=== PATIENT | female | born 1980 | race Caucasian/White ===

== ENCOUNTER → 2019-03-19 13:57 | Outpatient (BNVA) | payer SELFPAY | PROVIDERS: Family Provider Nurse Practitioner; PCP Nurse Practitioner; Referring Provider Family Medicine; Visit Provider Internal Medicine Rheumatology | DX: M05.79 Rheumatoid arthritis with rheumatoid factor of multiple sites without organ or systems involvement (principal); Z79.899 Other long term (current) drug therapy | CPT/HCPCS: 99213; 99214 ==

== ENCOUNTER → 2019-04-13 11:09 | Outpatient (BNVA) | payer OTHER, SELFPAY | PROVIDERS: Family Provider Nurse Practitioner; PCP Nurse Practitioner; Visit Provider Nurse Practitioner | DX: F32.9 Major depressive disorder, single episode, unspecified (principal); F41.9 Anxiety disorder, unspecified; E66.9 Obesity, unspecified; R60.9 Edema, unspecified; M05.79 Rheumatoid arthritis with rheumatoid factor of multiple sites without organ or systems involvement; M05.70 Rheumatoid arthritis with rheumatoid factor of unspecified site without organ or systems involvement; M19.042 Primary osteoarthritis, left hand; M19.041 Primary osteoarthritis, right hand | CPT/HCPCS: 73130; 80053; 82607; 84443; 84460; 85025; 85651; 86140 ==

== ENCOUNTER → 2019-09-21 10:43 | Outpatient (BNVA) | payer SELFPAY | PROVIDERS: Family Provider Nurse Practitioner; PCP Nurse Practitioner; Visit Provider Internal Medicine Rheumatology | DX: Z11.59 Encounter for screening for other viral diseases (principal); Z79.899 Other long term (current) drug therapy; M05.79 Rheumatoid arthritis with rheumatoid factor of multiple sites without organ or systems involvement; Z71.89 Other specified counseling; M06.30 Rheumatoid nodule, unspecified site | CPT/HCPCS: 36415; 80076; 82565; 85025; 99214 ==

== ENCOUNTER → 2019-12-21 10:10 | Outpatient (BNVA) | payer SELFPAY | PROVIDERS: Family Provider Nurse Practitioner; PCP Nurse Practitioner; Visit Provider Internal Medicine Rheumatology | DX: M05.79 Rheumatoid arthritis with rheumatoid factor of multiple sites without organ or systems involvement (principal); Z79.899 Other long term (current) drug therapy; M06.30 Rheumatoid nodule, unspecified site; F17.210 Nicotine dependence, cigarettes, uncomplicated | CPT/HCPCS: 99214 ==

== ENCOUNTER 2020-03-30 10:32 | Emergency (ER) | payer SELFPAY ==
[2020-03-30 10:51] VITALS: BP 170/86; PULSE 91; RESP 20; TEMP 36.6; O2SAT 98; BMI 47.0
--- NOTE | 2020-03-30 11:03 | XR_ITS ---
WS: [id number] Portable AP upright chest, 03/30/2020 Clinical Data: chest pain/palpitations Comparison: PA and lateral chest, 11/12/2018 Findings: No nodules, masses or effusions are seen. The heart is normal. The pulmonary vascularity is not increased. No pneumonia or pneumothorax is seen. Monitor leads are present on the chest wall. XR/XR chest 1V portable [id number] Impression: Negative chest.
--- NOTE | 2020-03-30 11:04 | ECG_ITS ---
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 Measurements Intervals [place] Rate: 76 P: 72 NV: 173 QRS: 85 QRSD: 94 T: 81 QT: 369 QTc: 416 Interpretive Statements SINUS RHYTHM Compared to ECG 12/29/2015 22:36:17 No significant changes Electronically Signed On 03-30-2020 17:58:33 COMPOSER TEACHING ARTIST by Griffin Deleon M.D. [id number] f
--- NOTE | 2020-03-30 11:13 | ED_ITS ---
HPI - Chest Pain General: Chief Complaint: Chest Pain Stated Complaint: chest pains, heart palpitations, weakness Time Seen by Provider: 03/30/20 11:02 History of Present Illness: HPI narrative: The patient is a 39-year-old female with past medical history of rheumatoid arthritis who comes to the ER complaining of racing heart and palpitations. She sees Dr. Corona at [facility] rheumatology and she recently had her medication changed and started leflunomide 2 days ago. She began to develop nausea, palpitations, chest pain, racing heart and feeling weak. She has noticed her heart rate up to the 130s at home and this morning she had 2 or 3 hours on and off of racing heart. Several years ago she had an episode of A. fib with RVR related to a Depo shot. She is not currently having any racing of the heart or chest pain in the ED at this time. The symptoms were at home and they have resolved. Associated symptoms: Reports palpitations; Deny abdominal pain or dyspnea Review of Systems General: Reports: 10 or more systems reviewed and unremarkable except in HPI and below Const: Denies: fatigue Eyes: Denies: change in vision, blurry vision or eye redness ENMT: Denies: throat pain, swelling of lips/tongue, ear or mastoid pain or nasal congestion Card: Reports: chest pain and palpitations; Denies: irregular heart rhythm, edema, dyspnea on exertion or orthopnea Resp: Denies: dyspnea, productive cough or non-productive cough GI: Denies: abdominal pain, diarrhea or GI cramping : Denies: flank pain, difficulty voiding, urinary frequency or urinary urgency Musc: Denies: neck pain, back pain, extremity pain, joint pain, joint redness, limited range of motion or muscle weakness Skin/Breast: Denies: rash, pruritus, erythema, skin pain or skin tenderness Neuro: Denies: headache(s), numbness in extremities, weakness in extremities, sensory changes, difficulty walking, dizziness, confusion or Slurred speech present Psych: Denies: anxiety or depression Endo: Denies: polyuria All/Imm: Denies: urticaria, throat swelling or tongue swelling PFS ED PFSH: Medical History (Updated 03/30/20 @ 15:35 by Darian Conklin MD) Anxiety and depression Edema High risk medication use Immunization counseling Obesity Rheumatoid nodule, unspecified site Surgical History H/O: Family History Father Diabetes Hypertension Mother Hypertension Rheumatoid arthritis Other Heart disease Hypercholesteremia Liver disease Migraine Denies family history of Stroke Social History Smoking and tobacco status: current every day smoker cigarettes Packs smoked per day: 1 Alcohol intake: never Desire information about alcohol rehabilitation?: No Counseling given: No Desire information about substance/drug rehabilitation?: No Counseling given: No Adopted: No Caregiver/support person: No Lives independently: Yes Household members: none Marital status: Single Number of children: 3 service: No Current occupational status: employed Current occupation: [employer] [facility] Pets and animals: Yes Pets & animals: cat(s) and dog(s) History of recent travel: No Current gender identity: Female Female Reproductive History: Date of last menstrual period: 03/30/20 Physical Exam Const: COMMON NORMALS: no acute distress, average body habitus, patient oriented x3, no limitations, healthy appearing, alert and well nourished GENERAL APPEARANCE: cooperative, comfortable, well kempt and well developed ORIENTATION/CONSCIOUSNESS: Yes awake, Yes oriented to person, Yes oriented to place and Yes oriented to time HENMT: COMMON NORMALS: normocephalic, external ears normal and Normal external nose present HEAD & SCALP: normal to inspection and normocephalic NOSE: Normal external nose present EXTERNAL EAR: Yes external ears normal MOUTH: Normal oral and palatal mucosa present THROAT: posterior oropharynx normal Eye: COMMON NORMALS: Equal, round and reactive pupils present and EOMs intact bilaterally GENERAL EYE: appearance normal, both eyes and all related structures PUPIL: Yes Equal, round and reactive pupils present Neck/C-Spine: COMMON NORMALS: full ROM, no lymphadenopathy, no meningeal signs and no JVD GENERAL: Yes normal visual inspection Lymph: LYMPHATIC: no lymphadenopathy noted Chest: COMMONS NORMALS: normal inspection of the chest and normal palpation of entire chest wall Resp: COMMON NORMALS: normal respiratory effort, No retractions, No use of accessory muscles, clear to auscultation bilaterally and percussion normal EFFORT & INSPECTION: Yes able to speak in complete sentences AUSCULTATION: clear to auscultation bilaterally PERCUSSION: percussion normal Cardio: COMMON NORMALS: no JVD, regular rate, regular rhythm, S1 normal heart sound present, S2 normal heart sound present and Peripheral pulses 2+ throughout RATE: regular rate RHYTHM: regular rhythm HEART SOUNDS: S1 normal heart sound present and S2 normal heart sound present PERIPHERAL PULSES: Peripheral pulses 2+ throughout GI: COMMON NORMALS: Normal to inspection, nondistended, normoactive bowel sounds present, Soft to palpation, non-tender and no masses INSPECTION: Yes normal to inspection PALPATION: Yes Soft to palpation : COMMON NORMALS: Yes no CVA tenderness BLADDER/KIDNEY EXAM: Yes no CVA tenderness Back/Pelvis: COMMON NORMALS: no CVA tenderness, thoracic and lumbar spine normal to inspection, no thoracic nor lumbar tenderness and thoraco-lumbar ROM normal Extremity: COMMON NORMALS: normal to inspection, full ROM, capillary refill normal, no joint enlargement and no pedal edema GENERAL: Yes normal exam except as noted Neuro: COMMON NORMALS: patient oriented x3, CN's II-XII intact bilaterally, moves all extremities, no focal motor deficits, no sensory deficits noted and gait normal SENSORIUM/ORIENTATION: Yes alert, Yes oriented to person, Yes oriented to place and Yes oriented to time MENINGEAL SIGNS: Yes no meningeal signs Psych: COMMON NORMALS: mental status grossly normal, Normal thought process present, cooperative, normal affect and speech normal APPEARANCE: Yes well kempt ATTITUDE: Yes calm SPEECH: Yes normal speech THOUGHT PROCESS: Normal thought process present Skin: COMMON NORMALS: no rashes or lesions noted GENERAL SKIN EXAM: no rashes or lesions noted Course Vital Signs: Vital signs: Vital Signs Temperature 97.9 F 03/30/20 10:51 Pulse Rate 89 03/30/20 14:00 Respiratory Rate 18 03/30/20 14:00 Blood Pressure 157/87 03/30/20 14:00 Pulse Oximetry 98 03/30/20 14:00 MDM - Chest Pain MDM Narrative: Medical decision making narrative: She has been here for 5 hours with a rate in the 80s. 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 She also felt chest pain and shortness of breath at that time. It is unclear the cause of this but possibly a side effect of her new medication. Recommended stopping it and returning to the ER with any return of palpitations, chest pain, shortness of breath or any other worsening symptoms. Her and her partner understand the plan and agree to follow-up with cardiology and return to the ER with those symptoms. Lab Data: Labs: Lab Results 03/30/20 03/30/20 03/30/20 Range/Units 11:15 11:15 11:15 WBC 9.0 (4.0-10.0) 10^3/ uL RBC 5.23 (4.1-5.3) 10^6/u L Hgb 14.7 (11.5-15.3) g/dL Hct 46.2 (37.0-47.0) % MCV 88.3 (81-99) fL MCH 28.1 (28.0-34.0) pg MCHC 31.8 (30.0-36.0) g/dL RDW 13.5 (12.1-15.1) % Plt Count 316 (130-400) 10^3/c mm MPV 10.2 (7.4-10.4) fL Neut % (Auto) 52.2 % Lymph % (Auto) 35.3 % Garden % (Auto) 8.9 % Eos % (Auto) 3.0 % Baso % (Auto) 0.4 % Neut # (Auto) 4.66 (1.8-7.7) 10^3/u L Lymph # (Auto) 3.2 (0.8-4.8) 10^3/u L Garden # (Auto) 0.8 (0.2-0.9) 10^3/u L Eos # (Auto) 0.3 (0.0-0.8) 10^3/u L Baso # (Auto) 0.0 (0.0-0.1) 10^3/u L Nucleated RBC % (a uto) 0 % Nucleated RBCs # 0.0 /100WBC D-Dimer 1.24 H (0-0.59) ug/mIFE U Sodium 137 (136-145) mmol/L Potassium 3.2 L (3.5-5.1) mmol/L Chloride 97 L (98-107) mmol/L Carbon Dioxide 31 H (22-29) mmol/L Anion Gap 12.2 (5-19) BUN 9 (6-20) mg/dL Creatinine 0.5 (0.5-0.9) mg/dL GFR Calculation 137.4 H (90-130) mL/min Glucose 95 (65-115) mg/dL Calculated Osmolal ity 282 L (285-295) mOsm/k g Calcium 9.3 (8.5-10.5) mg/dL Total Bilirubin 0.2 (0.15-1.2) mg/dL AST 12 (0-32) U/L ALT 18 (0-33) U/L Alkaline Phosphata se 131 H (35-105) IU/L Troponin T Baselin e (0-10) ng/L Troponin T 120 Min adina (0-10) ng/L Delta Troponin T (0-10) ABS# Total Protein 7.3 (6.6-8.7) g/dL Albumin 3.9 (3.5-5.2) g/dL Globulin 3.4 (1.3-4.6) g/dL HCG, Qual (Negative) Urine Color (Yellow) Urine Appearance (CLEAR) Urine pH (5-7) Ur Specific Gravit y (1.005-1.030) Urine Protein (Negative) Urine Glucose (UA) (Normal) Urine Ketones (Negative) Urine Blood (Negative) Urine Nitrate (Negative) Urine Bilirubin (Negative) Urine Urobilinogen (Negative) mg/dL Ur Leukocyte Leda ase (Negative) Urine RBC (0-2) /hpf Urine WBC (0-5) /hpf Ur Squamous Epith Cells (0-5) /hpf Amorphous Sediment Urine Bacteria (NONE) /hpf 03/30/20 03/30/20 03/30/20 Range/Units 11:15 11:46 11:46 WBC (4.0-10.0) 10^3/ uL RBC (4.1-5.3) 10^6/u L Hgb (11.5-15.3) g/dL Hct (37.0-47.0) % MCV (81-99) fL MCH (28.0-34.0) pg MCHC (30.0-36.0) g/dL RDW (12.1-15.1) % Plt Count (130-400) 10^3/c mm MPV (7.4-10.4) fL Neut % (Auto) % Lymph % (Auto) % Garden % (Auto) % Eos % (Auto) % Baso % (Auto) % Neut # (Auto) (1.8-7.7) 10^3/u L Lymph # (Auto) (0.8-4.8) 10^3/u L Garden # (Auto) (0.2-0.9) 10^3/u L Eos # (Auto) (0.0-0.8) 10^3/u L Baso # (Auto) (0.0-0.1) 10^3/u L Nucleated RBC % (a uto) % Nucleated RBCs # /100WBC D-Dimer (0-0.59) ug/mIFE U Sodium (136-145) mmol/L Potassium (3.5-5.1) mmol/L Chloride (98-107) mmol/L Carbon Dioxide (22-29) mmol/L Anion Gap (5-19) BUN (6-20) mg/dL Creatinine (0.5-0.9) mg/dL GFR Calculation (90-130) mL/min Glucose (65-115) mg/dL Calculated Osmolal ity (285-295) mOsm/k g Calcium (8.5-10.5) mg/dL Total Bilirubin (0.15-1.2) mg/dL AST (0-32) U/L ALT (0-33) U/L Alkaline Phosphata se (35-105) IU/L Troponin T Baselin e 6 (0-10) ng/L Troponin T 120 Min adina (0-10) ng/L Delta Troponin T (0-10) ABS# Total Protein (6.6-8.7) g/dL Albumin (3.5-5.2) g/dL Globulin (1.3-4.6) g/dL HCG, Qual Negative (Negative) Urine Color Yellow (Yellow) Urine Appearance Clear (CLEAR) Urine pH 6.5 (5-7) Ur Specific Gravit y 1.010 (1.005-1.030) Urine Protein Neg (Negative) Urine Glucose (UA) Norm (Normal) Urine Ketones Negative (Negative) Urine Blood 3+ H (Negative) Urine Nitrate Negative (Negative) Urine Bilirubin Neg (Negative) Urine Urobilinogen Norm (Negative) mg/dL Ur Leukocyte Leda ase Negative (Negative) Urine RBC 0-4 H (0-2) /hpf Urine WBC 0-4 H (0-5) /hpf Ur Squamous Epith Cells 5-10 H (0-5) /hpf Amorphous Sediment Not Reportable Urine Bacteria 1+ H (NONE) /hpf 03/30/20 Range/Units 13:20 WBC (4.0-10.0) 10^3/ uL RBC (4.1-5.3) 10^6/u L Hgb (11.5-15.3) g/dL Hct (37.0-47.0) % MCV (81-99) fL MCH (28.0-34.0) pg MCHC (30.0-36.0) g/dL RDW (12.1-15.1) % Plt Count (130-400) 10^3/c mm MPV (7.4-10.4) fL Neut % (Auto) % Lymph % (Auto) % Garden % (Auto) % Eos % (Auto) % Baso % (Auto) % Neut # (Auto) (1.8-7.7) 10^3/u L Lymph # (Auto) (0.8-4.8) 10^3/u L Garden # (Auto) (0.2-0.9) 10^3/u L Eos # (Auto) (0.0-0.8) 10^3/u L Baso # (Auto) (0.0-0.1) 10^3/u L Nucleated RBC % (a uto) % Nucleated RBCs # /100WBC D-Dimer (0-0.59) ug/mIFE U Sodium (136-145) mmol/L Potassium (3.5-5.1) mmol/L Chloride (98-107) mmol/L Carbon Dioxide (22-29) mmol/L Anion Gap (5-19) BUN (6-20) mg/dL Creatinine (0.5-0.9) mg/dL GFR Calculation (90-130) mL/min Glucose (65-115) mg/dL Calculated Osmolal ity (285-295) mOsm/k g Calcium (8.5-10.5) mg/dL Total Bilirubin (0.15-1.2) mg/dL AST (0-32) U/L ALT (0-33) U/L Alkaline Phosphata se (35-105) IU/L Troponin T Baselin e (0-10) ng/L Troponin T 120 Min adina 6.00 (0-10) ng/L Delta Troponin T 0 (0-10) ABS# Total Protein (6.6-8.7) g/dL Albumin (3.5-5.2) g/dL Globulin (1.3-4.6) g/dL HCG, Qual (Negative) Urine Color (Yellow) Urine Appearance (CLEAR) Urine pH (5-7) Ur Specific Gravit y (1.005-1.030) Urine Protein (Negative) Urine Glucose (UA) (Normal) Urine Ketones (Negative) Urine Blood (Negative) Urine Nitrate (Negative) Urine Bilirubin (Negative) Urine Urobilinogen (Negative) mg/dL Ur Leukocyte Leda ase (Negative) Urine RBC (0-2) /hpf Urine WBC (0-5) /hpf Ur Squamous Epith Cells (0-5) /hpf Amorphous Sediment Urine Bacteria (NONE) /hpf Discharge Plan Discharge Patient Disposition: Home Clinical Impression: Heart palpitations Condition: Stable Prescriptions: No Action furosemide [Lasix] 20 mg tablet 10 mg PO QAM PRN (Reason: weight gain) Qty: 90 RF: 0 potassium chloride 10 mEq capsule, extended release 10 meq PO DAILY PRN (Reason: with Lasix) Qty: 90 RF: 0 prednisone 10 mg tablet See Rx Instructions PO .COMPLEX PRN (Reason: joint pain) Qty: 30 RF: 1 Tylenol 8 Hour 650 mg Tablet Extended Release 1,300 mg PO DAILY@0500 RF: 0 Enbrel Mini 50 mg/mL (1 mL) cartridge 50 mg SUBCUT Q7D RF: 0 Discharge Orders: Discharge ED (Routine); Ordered 03/30/20 Ordered By: Darian Conklin Referrals: Michael Leger, PEDIATRIC ONCOLOGY NURSE-C [Primary Care Provider] - Discharge Diet: Advance as tolerated Discharge Activity: Resume usual activity Patient Instructions: Heart Palpitations Activity Restrictions/Additional Instructions: You have had palpitations likely a side effect from your medication. 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 Return to the ER with worsening symptoms. I have also placed a case management referral to get you into a digital account manager to discuss this further catheter and get an echocardiogram. Coding Level of Care Code ED Curriculum Specialist for Chg Fwd Exam Comprehensive
[2020-03-30 11:22] LABS: Basophils % 0.4 %; Eosinophils # 0.3 10^3/uL (0.0-0.8); Hematocrit 46.2 % (37.0-47.0); Hemoglobin 14.7 g/dL (11.5-15.3); Lymphocytes # 3.2 10^3/uL (0.8-4.8); Lymphocytes % 35.3 %; Mean Corpuscular HGB Conc 31.8 g/dL (30.0-36.0); Mean Corpuscular Hemoglobin 28.1 pg (28.0-34.0); Mean Corpuscular Volume 88.3 fL (81-99); Mean Platelet Volume 10.2 fL (7.4-10.4); Monocytes # 0.8 10^3/uL (0.2-0.9); Monocytes % 8.9 %; Neutrophils # 4.66 10^3/uL (1.8-7.7); Neutrophils % 52.2 %; Nucleated Red Blood Cells % 0 %; Platelet Count 316 10^3/cmm (130-400); Red Blood Count 5.23 10^6/uL (4.1-5.3); Red Cell Distribution Width 13.5 % (12.1-15.1)
[2020-03-30 11:35] LABS: D Dimer 1.24 ug/mIFEU (0-0.59)
[2020-03-30 11:42] LABS: Alanine Aminotransferase 18 U/L (0-33); Albumin Level 3.9 g/dL (3.5-5.2); Alkaline Phosphatase 131 IU/L (35-105); Anion Gap 12.2 (5-19); Aspartate Amino Transferase 12 U/L (0-32); Blood Urea Nitrogen 9 mg/dL (6-20); Calcium 9.3 mg/dL (8.5-10.5); Carbon Dioxide 31 mmol/L (22-29); Chloride 97 mmol/L (98-107); Globulin 3.4 g/dL (1.3-4.6); Glomerular Filtration Rate 137.4 mL/min (90-130); Glucose 95 mg/dL (65-115); Osmolality Calculated 282 mOsm/kg (285-295); Potassium 3.2 mmol/L (3.5-5.1); Sodium 137 mmol/L (136-145); Total Bilirubin 0.2 mg/dL (0.15-1.2); Total Protein 7.3 g/dL (6.6-8.7); Troponin(5th) Baseline 6 ng/L (0-10)
[2020-03-30 11:53] LABS: HCG Qualitative Urine. Negative (Negative)
[2020-03-30] MEDS: sodium chloride 0.9% 1,000 ML 999 ML IV (11:55)
[2020-03-30 11:59] VITALS: BP 142/85; PULSE 87; RESP 18; O2SAT 96
[2020-03-30 12:42] LABS: Add Urine Microscopic? YES; Bilirubin Urine Neg (Negative); Blood Urine 3+ (Negative); Glucose Urine UA Norm (Normal); Ketones Urine Negative (Negative); Leukocyte Esterase Urine Negative (Negative); Nitrate Urine Negative (Negative); Protein Urine Neg (Negative); Urine Appearance Clear (CLEAR); Urine Color Yellow (Yellow); Urobilinogen Urine Norm (Negative); pH Urine 6.5 (5-7)
--- NOTE | 2020-03-30 12:44 | CT_ITS ---
WS: [id number] CT CHEST ANGIOGRAPHY WITH REFORMATS HISTORY: r/o PE TECHNIQUE: Contiguous axial images are obtained through the chest during arterial injection of intrav enous contrast. Images are reconstructed to evaluate the pulmonary arteries. MIP imaging also reviewe d. All CT scans at [facility] use at least one of these dose optimization techniques: aut omated exposure control; mA and/or kV adjustment per patient size (includes targeted exams where dose is matched to clinical indication); or iterative reconstruction. CONTRAST: Omnipaque 350; 95 mL IV. DLP: 1837.81 mGy.cm COMPARISON: None available. Very Limited opacification of the pulmonary arteries. This is predominantly due to timing of the bolu s injection and body habitus. Beyond the main pulmonary artery opacification is limited. Pulmonary em boli cannot be excluded on this exam. Pulmonary artery is normal size. There is no RIGHT heart strain . Normal thoracic aorta. The entire thorax is not included within the image due to body habitus. No m ediastinal or hilar adenopathy. There are very small, subcentimeter hilar lymph nodes. No pericardial or pleural effusion. Mild hepatic steatosis. No adrenal mass. T10 hemangioma. CT/CT angio chest PE protcl [id number] IMPRESSION: 1. No large central pulmonary embolism. Beyond the central pulmonary artery op acification is limited. This study is suboptimal due to body habitus predominan tly. 2. No pneumonia. 3. No significant adenopathy.
--- NOTE | 2020-03-30 13:04 | ECG_ITS ---
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 Measurements Intervals [place] Rate: 79 P: 66 CT: 174 QRS: 80 QRSD: 84 T: 76 QT: 383 QTc: 441 Interpretive Statements SINUS RHYTHM Compared to ECG 03/30/2020 11:08:15 No significant changes Electronically Signed On 03-30-2020 18:13:03 DOVETAIL MACHINE OPERATOR by Griffin Deleon M.D. [id number]
[2020-03-30 13:14] LABS: Add Urine Culture? No; Bacteria Urine 1+ /hpf; RBC Urine 0-4 /hpf (0-2); WBC Urine 0-4 /hpf (0-5)
[2020-03-30] MEDS: potassium chloride ER 20 mEq Tablet 40 MEQ PO (13:17)
--- NOTE | 2020-03-30 13:22 | PC.NURSE ---
EKG done at 1320 and shown to ER doctor
[2020-03-30 13:51] LABS: Troponin 5 2HR Delta 0 ABS# (0-10)
[2020-03-30] MEDS: iohexol 350 mg/mL 100 mL Btl IV ×2 (13:52→13:53)
[2020-03-30 14:00] VITALS: BP 157/87; PULSE 89; RESP 18; O2SAT 98
[2020-03-30 15:47] VITALS: BP 157/87; PULSE 89; RESP 18; O2SAT 98
--- NOTE | 2020-03-31 12:53 | DCPLANNER ---
Addendum entered by Rylee Boggs 03/31/20 13:13: it security manager called patient to give patient the appointment for heart care, called [phone], unable to speak with patient at this time, a voicemail was left for patient to return nurse case management phone call for appointment information. Original Note: it security manager had message to schedule a follow up appointment for patient with heart care and rheumatology. it security manager called heart care, spoke with Shama, gave clinic patients information. A follow up appointment was scheduled for Saturday,April 06, 2020 at 2:[address] Whatley. it security manager called the rheumatolgy clinic, gave clinic patients information. it security manager was told that patients information would be printed and reviewed. Clinic will call patient with appointment information.
--- NOTE | 2020-05-17 15:58 | DCPLANNER ---
Patient had a follow up appointment scheduled for 04.06.20 with heart care - appointment was cancelled.
== END 2020-03-30 15:48 | disposition home or self-care (01) ==
PROVIDERS: Emergency Provider Family Medicine; PCP Nurse Practitioner
DX: R00.2 Palpitations (principal); F17.210 Nicotine dependence, cigarettes, uncomplicated
CPT/HCPCS: 12345; 36415; 71045; 71275; 80053; 81001; 81025; 84484; 85025; 85378; 93005; 96360; 99283; 99284; J7030; Q9967

== ENCOUNTER → 2020-07-25 10:47 | Outpatient (BNVA) | payer SELFPAY | PROVIDERS: PCP Nurse Practitioner; Visit Provider Nurse Practitioner | DX: R60.0 Localized edema (principal); F41.9 Anxiety disorder, unspecified; F32.9 Major depressive disorder, single episode, unspecified; M05.79 Rheumatoid arthritis with rheumatoid factor of multiple sites without organ or systems involvement; Z79.899 Other long term (current) drug therapy | CPT/HCPCS: 80076; 82565; 85025; 86140 ==

== ENCOUNTER → 2020-08-17 14:09 | Outpatient (BNVA) | payer SELFPAY | PROVIDERS: PCP Nurse Practitioner; Visit Provider Internal Medicine Rheumatology | DX: M05.79 Rheumatoid arthritis with rheumatoid factor of multiple sites without organ or systems involvement (principal); M06.30 Rheumatoid nodule, unspecified site; Z79.899 Other long term (current) drug therapy; F41.9 Anxiety disorder, unspecified; F32.9 Major depressive disorder, single episode, unspecified; F17.210 Nicotine dependence, cigarettes, uncomplicated | CPT/HCPCS: 99214 ==

== ENCOUNTER → 2020-09-19 14:58 | Outpatient (BNVA) | payer SELFPAY | PROVIDERS: PCP Nurse Practitioner; Visit Provider Nurse Practitioner Family | DX: Z20.822 Contact with and (suspected) exposure to COVID-19 (principal) | CPT/HCPCS: 87635 ==

== ENCOUNTER 2020-11-12 15:19 | Emergency (ER) | payer BC, MEDICAID, SELFPAY ==
[2020-11-12 15:35] VITALS: BP 154/99; PULSE 91; RESP 16; TEMP 36.3; O2SAT 96; BMI 43.9
--- NOTE | 2020-11-12 15:49 | XRR_ITS ---
PROCEDURE INFORMATION: Exam: XR Chest Exam date and time: 11/12/2020 3:49 PM Age: 39 years old Clinical indication: Chest wall pain; Additional info: Chest pain and dyspnea TECHNIQUE: Imaging protocol: XR of the chest. Views: 1 view. COMPARISON: CR XR chest 1V portable [id number] 03/30/2020 11:11 AM FINDINGS: Lungs: Unremarkable. No consolidation. Pleural spaces: Unremarkable. No pleural effusion. No pneumothorax. Heart/Mediastinum: Unremarkable. No cardiomegaly. Bones/joints: Unremarkable. XR/XR chest 1V portable [id number] IMPRESSION: No acute findings.
--- NOTE | 2020-11-12 15:49 | ECG_ITS ---
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
--- NOTE | 2020-11-12 15:51 | W.ED.GENADLT ---
HPI - General Adult General: Chief complaint: Chest Pain Stated complaint: cp Time Seen by Provider: 11/12/20 15:41 History of Present Illness: HPI narrative: CC: Chest Pain HPI: This is a [39] yo patient hx of RA, obesity presenting to the ED complaining of acute sudden onset intermittent sharp chest pain, palpitations and dyspnea x 1 hrs 30 minutes. Pain is not tearing in nature and does not radiate to the back. Pain not associated with vomiting or PO intake. Denies any recent sympathomimetic drug use. Patient denies any cough. Denies palpitations, dysphagia, diaphoresis, radiation of pain to bilateral arms, jaw. Denies F/N/V/D. Patient denies any recent immobility, surgery, or prior PE. Patient denies any orthopnea. Of note, ptaient has lower extremity swelling L>R which has been chronically present. In early 2020, patient presented to a chest pain evaluation and had a negative CTA study for PE. Onset: 1 hrs and 30 minutes ago Duration: ongoing Location: hospital Severity: moderate Review of Systems Narrative: Constitutional: No fever, no chills. HEENT: No vision changes, no sore throat. CV: +chest pain, no palpitations. PULM: No cough, +dyspnea. GI: No abdominal pain, no N/V/D. : No dysuria, no frequency, no hematuria. MSKEL: No arthralgias, no edema. SKIN: No new rashes, no lesions. NEURO: No headache, no focal weakness. HEME: No easy bleeding or bruising. PSYCH: No change in mood or affect. [facility] ED PFSH: Medical History (Updated 11/12/20 @ 15:53 by Emmy Tapia MD) Anxiety and depression Edema High risk medication use Immunization counseling Obesity Rheumatoid nodule, unspecified site Surgical History H/O: Family History Father Diabetes Hypertension Mother Hypertension Rheumatoid arthritis Other Heart disease Hypercholesteremia Liver disease Migraine Denies family history of Stroke Social History Smoking and tobacco status: current every day smoker cigarettes Packs smoked per day: 1 Second hand smoke exposure: No Smoking risk assessment/counseling performed?: Yes Alcohol intake: never Desire information about alcohol rehabilitation?: No Counseling given: No Desire information about substance/drug rehabilitation?: No Counseling given: No Adopted: No Caregiver/support person: No Lives independently: Yes Household members: none Marital status: Single Number of children: 3 service: No Current occupational status: employed Current occupation: [employer] Pets and animals: Yes Pets & animals: cat(s) and dog(s) History of recent travel: No Current gender identity: Female Female Reproductive History: Spontaneous abortions: No Physical Exam Narrative: EXAM NARRATIVE: Head: Atraumatic, normocephalic Eyes: PERRL, EOMI, conjunctiva without injection ENT: Throat without erythema, lesions or exudate, MMM NECK: Supple, trachea midline, no JVD LUNGS: LCTA CV: RRR, S1,S2, no murmurs, rubs, gallops. 2+ peripheral pulses in UEs ABDOMEN: Soft, nontender, nondistended, BS x4, no rigidity, no guarding, no rebound EXTREMITY: Normal ROM, +2+ pitting edema b/l, +L > R lower extremity, no human sign SKIN: No rash or erythema NEURO: Awake and alert. No focal motor deficits. PSYCH: Normal mood and affect. Course Vital Signs: Vital signs: Vital Signs Temperature 97.3 F L 11/12/20 15:35 Pulse Rate 68 11/12/20 18:55 Respiratory Rate 18 11/12/20 18:55 Blood Pressure 148/72 11/12/20 18:55 Pulse Oximetry 98 11/12/20 18:55 MDM - General Adult MDM Narrative: Medical decision making narrative: [39]yo patient w/ hx of RA and obesity presenting to the ED with evaluation of new onset sharp chest pain lasting for 1 hr and 30 minutes/. HDS, pulse 2+ radially bilaterally, 2+ pittting edema L > R. AAOx3, neuro exam intact. Given History and Exam today, will workup for PE and ACS. No suspicion for Pneumothorax, Pneumonia, Tamponade, Aortic Dissection or other emergent problems as a cause for this presentation. Workup: ECG, CXR, CBC, BMP, Troponin Interventions: Tylenol offered but patient declined Findings: ECG: No overt evidence of STEMI, hyperacute T waves, localizable STD or T wave inversions. No evidence of Brugada?s sign, delta wave, epsilon wave, significantly prolonged QTc, or malignant arrhythmia. No Q waves. Other Labs unremarkable for emergent problems. CXR: Without PTX, PNA, or widened mediastinum Last Stress Test: never Last Heart Catheterization: never HEART Score: 2 (story - 1, risk factors of 1) Dimer elevated similar to prior presentation. Offered CTA evaluation for PE and patient agreed. [6:30pm] On reassessment, the patient is HDS, no complaints of persistent chest pain in the ED after evaluation. Troponin x 2 negative. ECG is non-ischemic. Workup today is unremarkable. Doubt ACS/PE or other emergent causes of chest pain. Patient declined pain medicine. CTA negative for any acute PE. Disposition: Discharge. Strict return precautions discussed with the patient with full understanding. Advised patient to follow up promptly with a primary care provider in 24-48 hrs if the patient has persistent symptoms. Given return instructions for any crushing/tearing chest pain, focal weakness, syncope or any new or concerning issues. I have given patient follow up with a market research interviewer should she need it. Lab Data: Labs: Lab Results 11/12/20 11/12/20 11/12/20 Range/Units 13:47 13:47 13:47 WBC 9.0 (4.0-10.0) 10^3/ uL RBC 4.84 (4.1-5.3) 10^6/u L Hgb 13.8 (11.5-15.3) g/dL Hct 43.3 (37.0-47.0) % MCV 89.5 (81-99) fl MCH 28.5 (28.0-34.0) pg MCHC 31.9 (30.0-36.0) g/dL RDW 14.7 (12.1-15.1) % Plt Count 277 (130-400) 10^3/c mm MPV 10.5 H (7.4-10.4) fL Neut % (Auto) 49.0 % Lymph % (Auto) 35.8 % [place] % (Auto) 9.3 % Eos % (Auto) 5.0 % Baso % (Auto) 0.7 % Neut # (Auto) 4.43 (1.8-7.7) 10^3/u L Lymph # (Auto) 3.2 (0.8-4.8) 10^3/u L [place] # (Auto) 0.8 (0.2-0.9) 10^3/u L Eos # (Auto) 0.5 (0.0-0.8) 10^3/u L Baso # (Auto) 0.1 (0.0-0.1) 10^3/u L Nucleated RBC % (a uto) 0 % Nucleated RBCs # 0.0 /100WBC D-Dimer 1.20 H (0-0.59) ug/mIFE U Sodium 140 (136-145) mmol/L Potassium 4.4 (3.5-5.1) mmol/L Chloride 108 H (98-107) mmol/L Carbon Dioxide 20 L (22-29) mmol/L Anion Gap 16.4 (5-19) BUN 10 (6-20) mg/dL Creatinine 0.5 (0.5-0.9) mg/dL GFR Calculation 137.4 H (90-130) mL/min Glucose 90 (65-115) mg/dL Calculated Osmolal ity 289 (285-295) mOsm/k g Calcium 8.5 (8.5-10.5) mg/dL Troponin T Baselin e (0-10) ng/L Troponin T [address] [facility] (0-10) ng/L Delta Troponin T (0-10) ABS# Ser , Fitz i-Qnt 0.50 mIU/mL 11/12/20 11/12/20 Range/Units 13:47 18:10 WBC (4.0-10.0) 10^3/ uL RBC (4.1-5.3) 10^6/u L Hgb (11.5-15.3) g/dL Hct (37.0-47.0) % MCV (81-99) fl MCH (28.0-34.0) pg MCHC (30.0-36.0) g/dL RDW (12.1-15.1) % Plt Count (130-400) 10^3/c mm MPV (7.4-10.4) fL Neut % (Auto) % Lymph % (Auto) % [place] % (Auto) % Eos % (Auto) % Baso % (Auto) % Neut # (Auto) (1.8-7.7) 10^3/u L Lymph # (Auto) (0.8-4.8) 10^3/u L [place] # (Auto) (0.2-0.9) 10^3/u L Eos # (Auto) (0.0-0.8) 10^3/u L Baso # (Auto) (0.0-0.1) 10^3/u L Nucleated RBC % (a uto) % Nucleated RBCs # /100WBC D-Dimer (0-0.59) ug/mIFE U Sodium (136-145) mmol/L Potassium (3.5-5.1) mmol/L Chloride (98-107) mmol/L Carbon Dioxide (22-29) mmol/L Anion Gap (5-19) BUN (6-20) mg/dL Creatinine (0.5-0.9) mg/dL GFR Calculation (90-130) mL/min Glucose (65-115) mg/dL Calculated Osmolal ity (285-295) mOsm/k g Calcium (8.5-10.5) mg/dL Troponin T Baselin e 6 (0-10) ng/L Troponin T [address] [facility] 6.00 (0-10) ng/L Delta Troponin T 0 (0-10) ABS# Ser , Fitz i-Qnt mIU/mL Imaging Data^: Other Imaging: Radiologist's impression: [address] [id number] ReportSigned Patient: Bella Owusu #: [id number]: 1980Acct#:[id number]/Sex: 39 / FADM Date: 11/12/20Loc: ERRoom/Bed:Attending Dr: Ordering Provider/Ordering MD: Emmy Tapia MD Date of Service: 11/12/20 Procedure(s): XR chest 1V portable [id number] Accession Number(s): [id number] Report Number: [id number] PROCEDURE INFORMATION: Exam: XR Chest Exam date and time: 11/12/2020 3:49 PM Age: 39 years old Clinical indication: Chest wall pain; Additional info: Chest pain and dyspnea TECHNIQUE: Imaging protocol: XR of the chest. Views: 1 view. COMPARISON: CR XR chest 1V portable [id number] 03/30/2020 11:11 AM FINDINGS: Lungs: Unremarkable. No consolidation. Pleural spaces: Unremarkable. No pleural effusion. No pneumothorax. Heart/Mediastinum: Unremarkable. No cardiomegaly. Bones/joints: Unremarkable. XR/XR chest 1V portable [id number] IMPRESSION: No acute findings. Dictated By:Pedro Krause DOSigned By:Pedro Krause DOSigned Date/Time:11/12/20 1700DD/ 1659 [facility] [place], [place] [address]KH Scan ReportSigned Patient: Bella Owusu #: [id number]: 1980Acct#:[id number]/Sex: 39 / FADM Date: 11/12/20Loc: ERRoom/Bed:Attending Dr: Ordering Provider/Ordering MD: Emmy Tapia MD Date of Service: 11/12/20 Procedure(s): CT angio chest PE protcl [id number] Accession Number(s): [id number] Report Number: [id number] PROCEDURE INFORMATION: Exam: CTA Chest With Contrast Exam date and time: 11/12/2020 4:57 PM Age: 39 years old Clinical indication: Other: Chest pain; Additional info: Rule out pe TECHNIQUE: Imaging protocol: Computed tomographic angiography of the chest with contrast. 3D rendering (Not supervised by radiologist): MIP and/or 3D reconstructed images were created by the technologist. Radiation optimization: All CT scans at this facility use at least one of these dose optimization techniques: automated exposure control; mA and/or kV adjustment per patient size (includes targeted exams where dose is matched to clinical indication); or iterative reconstruction. Contrast material: OMNI 350; Contrast volume: 74 ml; Contrast route: INTRAVENOUS (IV); COMPARISON: CT angio chest PE protcl [id number] 03/30/2020 1:33 PM RADIATION DOSE METRICS: Total DLP (mGy-cm): 595.55 FINDINGS: Pulmonary arteries: Normal. No pulmonary emboli. Aorta: Unremarkable. No aortic aneurysm. No aortic dissection. Lungs: Unremarkable. No consolidation. No masses. Pleural spaces: Unremarkable. No pneumothorax. No pleural effusion. Heart: Unremarkable. No cardiomegaly. No pericardial effusion. Lymph nodes: Unremarkable. No enlarged lymph nodes. Bones/joints: Well-demarcated probable large bone island/enostosis measuring 1.4 cm in the T10 vertebral body. No acute fracture. Soft tissues: Unremarkable. CT/CT angio chest PE protcl [id number] IMPRESSION: Negative for pulmonary embolism. No acute intrathoracic findings. Radiation Dose CTDIVOL = (mGy): DLP = 595.55 (mGy-cm) Dictated By:Pedro Krause DOSigned By:Pedro Krause DOSigned Date/Time:11/12/201824DD/ 24 Discharge Plan Discharge Patient Disposition: Home Clinical Impression: Chest pain, Dyspnea Condition: Stable Prescriptions: No Action Humira Pen 40 mg/0.8 mL pen injector kit 40 mg SUBCUT .Q7days Qty: 4 RF: 3 hydrochlorothiazide 25 mg tablet 25 mg PO QAM Qty: 30 RF: 2 venlafaxine [Effexor XR] 75 mg capsule,extended release 24hr 75 mg PO QAM Qty: 30 RF: 2 acetaminophen [Tylenol 8 Hour] 650 mg Tablet Extended Release 1,300 mg PO DAILY@0500 RF: 0 Topamax 25 mg tablet 25 mg PO DAILY RF: 0 Discharge Orders: Discharge ED (Routine); Ordered 11/12/20 Ordered By: Emmy Tapia Referrals: Michael Leger, SYSTEM SUPPORT ANALYST-C [Primary Care Provider] - Discharge Diet: Advance as tolerated Discharge Activity: Resume usual activity Patient Instructions: Chest Pain (ED) Activity Restrictions/Additional Instructions: Please come back to the emergency room if your chest pain worsens, have shortness of breath, or if you have any new or concerning complaints. Our case management coordinator will call you in the next few days to set you up an appointment with cardiology. Coding Level of Care Code ED Verse Writer for Nai Arceo
[2020-11-12 16:22] LABS: Basophils # 0.1 10^3/uL (0.0-0.1); Basophils % 0.7 %; Eosinophils # 0.5 10^3/uL (0.0-0.8); Hematocrit 43.3 % (37.0-47.0); Hemoglobin 13.8 g/dL (11.5-15.3); Lymphocytes # 3.2 10^3/uL (0.8-4.8); Lymphocytes % 35.8 %; Mean Corpuscular HGB Conc 31.9 g/dL (30.0-36.0); Mean Corpuscular Hemoglobin 28.5 pg (28.0-34.0); Mean Corpuscular Volume 89.5 fl (81-99); Mean Platelet Volume 10.5 fL (7.4-10.4); Monocytes # 0.8 10^3/uL (0.2-0.9); Monocytes % 9.3 %; Neutrophils # 4.43 10^3/uL (1.8-7.7); Nucleated Red Blood Cells % 0 %; Platelet Count 277 10^3/cmm (130-400); Red Blood Count 4.84 10^6/uL (4.1-5.3); Red Cell Distribution Width 14.7 % (12.1-15.1)
[2020-11-12 16:29] LABS: Troponin(5th) Baseline 6 ng/L (0-10)
--- NOTE | 2020-11-12 16:57 | CTR_ITS ---
PROCEDURE INFORMATION: Exam: CTA Chest With Contrast Exam date and time: 11/12/2020 4:57 PM Age: 39 years old Clinical indication: Other: Chest pain; Additional info: Rule out pe TECHNIQUE: Imaging protocol: Computed tomographic angiography of the chest with contrast. 3D rendering (Not supervised by radiologist): MIP and/or 3D reconstructed images were created by the technologist. Radiation optimization: All CT scans at this facility use at least one of these dose optimization techniques: automated exposure control; mA and/or kV adjustment per patient size (includes targeted exams where dose is matched to clinical indication); or iterative reconstruction. Contrast material: OMNI 350; Contrast volume: 74 ml; Contrast route: INTRAVENOUS (IV); COMPARISON: CT angio chest PE protcl [id number] 03/30/2020 1:33 PM RADIATION DOSE METRICS: Total DLP (mGy-cm): 595.55 FINDINGS: Pulmonary arteries: Normal. No pulmonary emboli. Aorta: Unremarkable. No aortic aneurysm. No aortic dissection. Lungs: Unremarkable. No consolidation. No masses. Pleural spaces: Unremarkable. No pneumothorax. No pleural effusion. Heart: Unremarkable. No cardiomegaly. No pericardial effusion. Lymph nodes: Unremarkable. No enlarged lymph nodes. Bones/joints: Well-demarcated probable large bone island/enostosis measuring 1.4 cm in the T10 vertebral body. No acute fracture. Soft tissues: Unremarkable. CT/CT angio chest PE protcl [id number] IMPRESSION: Negative for pulmonary embolism. No acute intrathoracic findings. Radiation Dose CTDIVOL = (mGy): DLP = 595.55 (mGy-cm)
[2020-11-12 17:01] VITALS: BP 142/74; PULSE 74; RESP 19; O2SAT 98
[2020-11-12] MEDS: iohexol 350 mg/mL 100 mL Btl IV (17:46)
--- NOTE | 2020-11-12 17:49 | ECG_ITS ---
[facility] Test Date: 2020-11-12 Pat Name: Bella Owusu Department: Room: Gender: Female Security Project Manager: : 1980 Requested By: Emmy Tapia Order Number: [id number] Reading MD: JEANNE DAVID Measurements Intervals [place] Rate: 75 P: 52 CO: 161 QRS: 61 QRSD: 90 T: 55 QT: 383 QTc: 429 Interpretive Statements SINUS RHYTHM LOW QRS VOLTAGE IN PRECORDIAL LEADS [QRS DEFLECTION < 1.0 mV IN CHEST LEADS] Compared to ECG 03/30/2020 13:19:33 Low QRS voltage now present Electronically Signed On 11-12-2020 20:17:12 CDT by JEANNE DAVID [id number]
[2020-11-12 18:01] VITALS: BP 148/72; PULSE 68; RESP 18; O2SAT 98
[2020-11-12 18:55] VITALS: BP 148/72; PULSE 68; RESP 18; O2SAT 98
[2020-11-12 19:14] LABS: Troponin 5 2HR Delta 0 ABS# (0-10)
[2020-11-12 20:01] LABS: Anion Gap 16.4 (5-19); Blood Urea Nitrogen 10 mg/dL (6-20); Calcium 8.5 mg/dL (8.5-10.5); Carbon Dioxide 20 mmol/L (22-29); Chloride 108 mmol/L (98-107); Glomerular Filtration Rate 137.4 mL/min (90-130); Glucose 90 mg/dL (65-115); Osmolality Calculated 289 mOsm/kg (285-295); Potassium 4.4 mmol/L (3.5-5.1); Sodium 140 mmol/L (136-145)
--- NOTE | 2020-11-16 14:44 | DCPLANNER ---
communications program manager had message to schedule a follow up appointment for patient with [facility]. communications program manager called [facility], spoke with Shama, gave clinic patients information. A follow up appointment was scheduled for Saturday, November 28, 2020 at 2:[address] Rosado. communications program manager called patient and gave patient the appointment information.
--- NOTE | 2020-12-01 09:28 | DCPLANNER ---
Patient had a follow up appointment scheduled for 11.28.20 with [facility] - patient did attend appointment.
== END 2020-11-12 18:56 | disposition home or self-care (01) ==
PROVIDERS: Emergency Provider Emergency Medicine; PCP Nurse Practitioner
DX: R07.9 Chest pain, unspecified (principal); R06.00 Dyspnea, unspecified; F17.210 Nicotine dependence, cigarettes, uncomplicated
CPT/HCPCS: 71045; 71275; 80048; 84484; 84702; 85025; 85378; 93005; 99283; Q9967

== ENCOUNTER → 2020-11-17 10:29 | Outpatient (BNVA) | payer BC, MEDICAID, SELFPAY | PROVIDERS: PCP Nurse Practitioner; Visit Provider Nurse Practitioner | DX: R60.0 Localized edema (principal); F41.9 Anxiety disorder, unspecified; F32.9 Major depressive disorder, single episode, unspecified; M05.79 Rheumatoid arthritis with rheumatoid factor of multiple sites without organ or systems involvement; Z79.899 Other long term (current) drug therapy; Z13.6 Encounter for screening for cardiovascular disorders; R07.9 Chest pain, unspecified | CPT/HCPCS: 80061; 80076; 84443; 86140 ==

== ENCOUNTER → 2020-12-08 10:18 | Outpatient (BNVA) | payer BC, SELFPAY | PROVIDERS: PCP Nurse Practitioner; Visit Provider Internal Medicine Rheumatology | DX: M05.79 Rheumatoid arthritis with rheumatoid factor of multiple sites without organ or systems involvement (principal); M06.30 Rheumatoid nodule, unspecified site; Z79.899 Other long term (current) drug therapy; F41.9 Anxiety disorder, unspecified; F32.9 Major depressive disorder, single episode, unspecified; Z71.89 Other specified counseling; F17.210 Nicotine dependence, cigarettes, uncomplicated | CPT/HCPCS: 99214 ==

== ENCOUNTER 2021-02-10 08:21 | Day surgery (SDC) | payer BC, MEDICAID, SELFPAY ==
[2021-02-10] VITALS (14 sets, daily range): BP systolic 120–160; BP diastolic 76–92; PULSE 76–95; RESP 14–20; TEMP 36.2–36.5; O2SAT 93–98; BMI 48.8
--- NOTE | 2021-02-10 08:46 | ED_ITS ---
HPI - Abdominal Pain General: Chief Complaint: Abdominal Pain Stated Complaint: UPPER ABD PAIN SINCE SATURDAY:PAIN WORSENING Time Seen by Provider: 02/10/21 08:26 Source: patient Mode of arrival: ambulatory Limitations: no limitations History of Present Illness: HPI narrative: 40-year-old female presents to the ER today for epigastric abdominal pain that started 6 days ago. Patient reports on the pain began it was intermittent and occurred with acidic type of foods. Patient reports it is now worsened and is all the time. This can happen with any food, liquid, or movement. She reports this is epigastric and radiates into her back and to both the right and the left. Patient reports nausea due to pain. Denies any vomiting, diarrhea, constipation. Patient has not had any major abdominal surgeries and still has her gallbladder and appendix. Patient denies any recent illness. Denies any history of gastric ulcers. Patient reports she has tried Protonix, omeprazole, Tums, and Tylenol. She reports mild improvement with Protonix and Tylenol. MD elicited complaint: abdominal pain Onset (ago): day(s) Pain Consistency: constant Location: Epigastric Severity: severe Pain scale (0-10): 8 Quality: aching and sharp Radiation: LUQ, RUQ and back Exacerbating factors: eating and movement Relieving factors: nothing Associated Symptoms: Reports nausea; Denies chills, constipation, diarrhea, fever(s), heartburn and vomiting Review of Systems General: Reports: 10 or more systems reviewed and unremarkable except in HPI and below Const: Denies: fever(s), chills or body aches ENMT: Denies: throat pain, nasal discharge or nasal congestion Card: Denies: chest pain or palpitations Resp: Denies: dyspnea, productive cough or wheezing GI: Reports: abdominal pain and nausea; Denies: vomiting, heartburn, diarrhea or constipation Musc: Denies: neck pain or back pain Skin/Breast: Denies: rash Neuro: Denies: headache(s) PFSH ED PFSH: Medical History (Updated 02/10/21 @ 10:41 by Kameron Nazario MD) Anxiety and depression Atrial fibrillation No episodes since I started metoprolol Edema Obesity Rheumatoid arthritis Surgical History (Updated 02/10/21 @ 10:34 by Kameron Nazario MD) H/O: x 3 Family History Father Diabetes Hypertension CAD (coronary artery disease) Lung disease Mother Hypertension Rheumatoid arthritis CAD (coronary artery disease) Lung disease Sister CAD (coronary artery disease) Cancer Hypertension Lung disease Stroke Family/Other Cancer Grandmother Dementia Other Heart disease Hypercholesteremia Liver disease Migraine Denies family history of Clotting disorder Chronic kidney disease (CKD) Suicide Anesthesia complication Bleeding disorder Social History (Updated 02/10/21 @ 10:36 by Kameron Nazario MD) Smoking and tobacco status: current every day smoker cigarettes Packs smoked per day: 1.5 Years cigarettes smoked: 20 Smoking risk assessment/counseling performed?: Yes Alcohol intake: never Desire information about alcohol rehabilitation?: No Counseling given: No Desire information about substance/drug rehabilitation?: No Counseling given: No Adopted: No Caregiver/support person: No Lives independently: Yes Household members: none Marital status: Single Number of children: 3 service: No Current occupational status: employed Current occupation: [employer] Pets and animals: Yes Pets & animals: cat(s) and dog(s) History of recent travel: No Current gender identity: Female Female Reproductive History: Spontaneous abortions: No Physical Exam Const: COMMON NORMALS: no acute distress, patient oriented x3, no limitations and healthy appearing GENERAL APPEARANCE: cooperative NUTRITIONAL APPEARANCE: obese HENMT: COMMON NORMALS: normocephalic, external ears normal and Normal external nose present HEAD & SCALP: normocephalic NOSE: Normal external nose present EXTERNAL EAR: Yes external ears normal Eye: COMMON NORMALS: conjunctivae normal CONJUNCTIVA: Yes conjunctivae normal Neck/C-Spine: COMMON NORMALS: no lymphadenopathy Resp: COMMON NORMALS: normal respiratory effort and clear to auscultation bilaterally EFFORT & INSPECTION: Yes able to speak in complete sentences AUSCULTATION: clear to auscultation bilaterally, no rales, no rhonchi and no wheezes Cardio: COMMON NORMALS: regular rate, regular rhythm and No murmurs present (Cardio) RATE: regular rate RHYTHM: regular rhythm GI: COMMON NORMALS: Normal to inspection, nondistended, normoactive bowel sounds present, Soft to palpation and No hepatosplenomegaly present PALPATION: Yes Soft to palpation, Yes Tenderness to palpation present (GI) (epigastric) Details: other, No Guarding due to palpation present (GI) and Yes No hepatosplenomegaly present : COMMON NORMALS: Yes no CVA tenderness BLADDER/KIDNEY EXAM: Yes no CVA tenderness Back/Pelvis: COMMON NORMALS: no CVA tenderness Extremity: COMMON NORMALS: full ROM Neuro: COMMON NORMALS: patient oriented x3, moves all extremities and gait normal Psych: COMMON NORMALS: mental status grossly normal, Normal thought process present, cooperative and normal affect THOUGHT PROCESS: Normal thought process present Skin: COMMON NORMALS: no rashes or lesions noted GENERAL SKIN EXAM: no rashes or lesions noted Course ED course: Patient presents with epigastric pain radiating to the right upper quadrant and left upper quadrant and also the back. This is worsened with food and liquid at this point and has been going on for about 5 days. We will go ahead and CT the abdomen with contrast and get labs today. Consultations: Consultation #1: Spoke with Dr. Quiles, general surgery. He will come to the ER to see patient and evaluate. Time: 10:17 Vital Signs: Vital signs: Vital Signs Temperature 97.7 F 02/10/21 08:37 Pulse Rate 83 02/10/21 09:50 Respiratory Rate 17 02/10/21 09:50 Blood Pressure 128/78 02/10/21 09:50 Pulse Oximetry 96 02/10/21 09:50 MDM - Abdominal Pain MDM Narrative: Medical decision making narrative: 40-year-old female presents to the ER today for midepigastric pain that began on Saturday. Patient reports pain has continued to worsen and is now present all the time and with any type of food or liquid intake. CT of the abdomen indicates acute cholecystitis. Patient also is hypokalemic likely due to her metolazone and the fact that she has not been eating this week. She reports she has been taking her potassium however. Patient started on fluids and potassium replacement. Patient given morphine for pain. I did consult with Dr. Tapia who recommended we proceed with consultation with the surgeon. Dr. Dash was contacted and will see patient in the ER. Patient last had a few sips of water with her pills this morning but otherwise has not eat this morning or drank. Lab Data: Attestation: I reviewed the patient's lab results. Lab results narrative: Labs reviewed. Patient started on potassium and IV fluids at this time. Labs: Lab Results 02/10/21 02/10/21 02/10/21 09:03 09:03 09:03 WBC 13.2 10^3/uL H 10 ^3/uL (4.0-10.0) RBC 5.21 10^6/uL 10^6 /uL (4.1-5.3) Hgb 15.3 g/dL g/dL (11.5-15.3) Hct 44.4 % % (37.0-47.0) MCV 85.2 fl fl (81-99) MCH 29.4 pg pg (28.0-34.0) MCHC 34.5 g/dL g/dL (30.0-36.0) RDW 14.6 % % (12.1-15.1) Plt Count 374 10^3/cmm 10^3 /cmm (130-400) MPV 10.8 fL H fL (7.4-10.4) Neut % (Auto) 68.8 % % Lymph % (Auto) 19.6 % % Rabun % (Auto) 8.7 % % Eos % (Auto) 1.9 % % Baso % (Auto) 0.5 % % Neut # (Auto) 9.06 10^3/uL H 10 ^3/uL (1.8-7.7) Lymph # (Auto) 2.6 10^3/uL 10^3/ uL (0.8-4.8) Rabun # (Auto) 1.2 10^3/uL H 10^ 3/uL (0.2-0.9) Eos # (Auto) 0.3 10^3/uL 10^3/ uL (0.0-0.8) Baso # (Auto) 0.1 10^3/uL 10^3/ uL (0.0-0.1) Nucleated RBC % (a uto) 0 % % Nucleated RBCs # 0.0 /100WBC /100W BC Sodium 136 mmol/L mmol/L (136-145) Potassium 2.6 mmol/L L* mmo l/L (3.5-5.1) Chloride 94 mmol/L L mmol/ L (98-107) Carbon Dioxide 29 mmol/L mmol/L (22-29) Anion Gap 15.6 (5-19) BUN 6 mg/dL mg/dL (6-20) Creatinine 0.4 mg/dL L mg/dL (0.5-0.9) GFR Calculation 176.8 mL/min H mL /min (90-130) Glucose 102 mg/dL mg/dL (65-115) Calculated Osmolal ity 280 mOsm/kg L mOs m/kg (285-295) Calcium 8.6 mg/dL mg/dL (8.5-10.5) Total Bilirubin 0.2 mg/dL mg/dL (0.15-1.2) AST 18 U/L U/L (0-32) ALT 16 U/L U/L (0-33) Alkaline Phosphata se 151 IU/L H IU/L (35-105) Total Protein 7.5 g/dL g/dL (6.6-8.7) Albumin 4.0 g/dL g/dL (3.5-5.2) Globulin 3.5 g/dL g/dL (1.3-4.6) Lipase 10 U/L L U/L (13-60) HCG, Qual Negative (Negative) Urine Color Urine Appearance Urine pH Ur Specific Gravit y Urine Protein Urine Glucose (UA) Urine Ketones Urine Blood Urine Nitrate Urine Bilirubin Urine Urobilinogen Ur Leukocyte Leda ase 02/10/21 09:03 WBC RBC Hgb Hct MCV MCH MCHC RDW Plt Count MPV Neut % (Auto) Lymph % (Auto) Rabun % (Auto) Eos % (Auto) Baso % (Auto) Neut # (Auto) Lymph # (Auto) Rabun # (Auto) Eos # (Auto) Baso # (Auto) Nucleated RBC % (a uto) Nucleated RBCs # Sodium Potassium Chloride Carbon Dioxide Anion Gap BUN Creatinine GFR Calculation Glucose Calculated Osmolal ity Calcium Total Bilirubin AST ALT Alkaline Phosphata se Total Protein Albumin Globulin Lipase HCG, Qual Urine Color Yellow (Yellow) Urine Appearance Clear (CLEAR) Urine pH 8 H (5-7) Ur Specific Gravit y 1.010 (1.005-1.030) Urine Protein Neg (Negative) Urine Glucose (UA) Norm (Normal) Urine Ketones Negative (Negative) Urine Blood Neg (Negative) Urine Nitrate Negative (Negative) Urine Bilirubin Neg (Negative) Urine Urobilinogen Norm mg/dL mg/dL (Negative) Ur Leukocyte Leda ase Negative (Negative) Imaging Data ^: CT Abd/Pel: Radiologist's impression: [facility] [address] [place] [address] CT Scan Report Signed Patient: Bella Owusu Unit #: [id number] : 1980 Age/Sex: 40 / F ADM Date: 02/10/21 Loc: ER Room/Bed: Attending Dr: Ordering Provider/Ordering MD: Shelby Torres Date of Service: 02/10/21 Procedure(s): CT abdomen pelvis w con* [id number] Accession Number(s): [id number] Report Number: [id number] WS: [id number] CT ABDOMEN PELVIS TECHNIQUE: Contrast-enhanced CT of the abdomen and pelvis with coronal and sagittal reformatted images. CLINICAL INFORMATION: epigastric abdominal pain/diffuse COMPARISON: None. DLP: [address] scans at [facility] use at least one of these dose optimization techniques: automated exposure control; mA and/or kV adjustment per patient size (includes targeted exams where dose is matched to clinical indication); or iterative reconstruction. FINDINGS: Hepatomegaly. Diffuse fatty infiltration of the liver. Normal portal vein and splenic vein. Fluid distended gallbladder with wall thickening and gallbladder wall edema. Dense cholelithiasis. Findings suspicious for acute cholecystitis. This can be further evaluated with ultrasound. Normal portal vein and splenic vein. Splenomegaly. Noncalcified nodule right middle lobe measuring 5 mm. Tiny noncalcified subpleural nodule right lower lobe. Spleen measures 14.8 cm. Normal GE junction. Adrenal glands are normal. Normal renal parenchymal enhancement. No hydronephrosis. Normal pancreatic parenchymal enhancement. Distal common bile duct appears normal. Normal caliber abdominal aorta. Aortic calcification. Normal sigmoid colon. No evidence of high-grade small or large bowel obstruction. Right ovarian cyst measuring 2.4 x 2.6 cm. Disc space narrowing L5-S1. Hemangioma T10 v ertebral body. CT/CT abdomen pelvis w con* [id number] IMPRESSION: 1. Fluid distended gallbladder with gallbladder wall thickening and surrounding induration and edema. Cholelithiasis. Findings suspicious for acute cholecystitis. This can be further evaluated with ultrasound. 2. Visualized common bile duct tapers normally 3. Hepatomegaly and splenomegaly. Diffuse fatty infiltration of the liver. 4. Right ovarian cyst measuring 2.4 x 2.6 cm. Notified Shelby Torres PA-C at 02/10/2021 9:55 AM. Dictated By: Juan A Sainz MD Signed By: Juan A Sainz MD Signed Date/Time: 02/10/21955 DD/ 8 Critical Care Time Critical Care Time: Critical Care Time: No Discharge Plan Discharge Patient Disposition: Admitted As Inpatient Clinical Impression: Acute cholecystitis, Hypokalemia Condition: Stable Coding Level of Care Code ED Net Developer Consultant for Chg Fwd Exam Comprehensive
--- NOTE | 2021-02-10 09:12 | CT_ITS ---
WS: [id number] CT ABDOMEN PELVIS TECHNIQUE: Contrast-enhanced CT of the abdomen and pelvis with coronal and sagittal reformatted image s. CLINICAL INFORMATION: epigastric abdominal pain/diffuse COMPARISON: None. DLP: 1928.[address] scans at [facility] use at least one of these dose optimization techniques: automated e xposure control; mA and/or kV adjustment per patient size (includes targeted exams where dose is matc hed to clinical indication); or iterative reconstruction. FINDINGS: Hepatomegaly. Diffuse fatty infiltration of the liver. Normal portal vein and splenic vein. Fluid dis tended gallbladder with wall thickening and gallbladder wall edema. Dense cholelithiasis. Findings vo spicious for acute cholecystitis. This can be further evaluated with ultrasound. Normal portal vein and splenic vein. Splenomegaly. Noncalcified nodule right middle lobe measuring 5 mm. Tiny noncalcified subpleural nodule right lower lobe. Spleen measures 14.8 cm. Normal GE junction . Adrenal glands are normal. Normal renal parenchymal enhancement. No hydronephrosis. Normal pancreat ic parenchymal enhancement. Distal common bile duct appears normal. Normal caliber abdominal aorta. A ortic calcification. Normal sigmoid colon. No evidence of high-grade small or large bowel obstruction. Right ovarian cyst measuring 2.4 x 2.6 cm. Disc space narrowing L5-S1. Hemangioma T10 vertebral body. CT/CT abdomen pelvis w con* [id number] IMPRESSION: 1. Fluid distended gallbladder with gallbladder wall thickening and surroundin g induration and edema. Cholelithiasis. Findings suspicious for acute cholecyst itis. This can be further evaluated with ultrasound. 2. Visualized common bile duct tapers normally 3. Hepatomegaly and splenomegaly. Diffuse fatty infiltration of the liver. 4. Right ovarian cyst measuring 2.4 x 2.6 cm. Notified Shelby Torres PA-C at 02/10/2021 9:55 AM.
[2021-02-10 09:17] LABS: Basophils # 0.1 10^3/uL (0.0-0.1); Basophils % 0.5 %; Eosinophils # 0.3 10^3/uL (0.0-0.8); Eosinophils % 1.9 %; Hematocrit 44.4 % (37.0-47.0); Hemoglobin 15.3 g/dL (11.5-15.3); Lymphocytes # 2.6 10^3/uL (0.8-4.8); Lymphocytes % 19.6 %; Mean Corpuscular HGB Conc 34.5 g/dL (30.0-36.0); Mean Corpuscular Hemoglobin 29.4 pg (28.0-34.0); Mean Corpuscular Volume 85.2 fl (81-99); Mean Platelet Volume 10.8 fL (7.4-10.4); Monocytes # 1.2 10^3/uL (0.2-0.9); Monocytes % 8.7 %; Neutrophils # 9.06 10^3/uL (1.8-7.7); Neutrophils % 68.8 %; Nucleated Red Blood Cells % 0 %; Platelet Count 374 10^3/cmm (130-400); Red Blood Count 5.21 10^6/uL (4.1-5.3); Red Cell Distribution Width 14.6 % (12.1-15.1); White Blood Count 13.2 10^3/uL (4.0-10.0)
[2021-02-10 09:22] LABS: HCG Qualitative Urine. Negative (Negative)
[2021-02-10] MEDS: iohexol 300 mg/mL 100 mL Btl IV (09:25)
[2021-02-10 09:55] LABS: Alanine Aminotransferase 16 U/L (0-33); Alkaline Phosphatase 151 IU/L (35-105); Blood Urea Nitrogen 6 mg/dL (6-20); Calcium 8.6 mg/dL (8.5-10.5); Carbon Dioxide 29 mmol/L (22-29); Chloride 94 mmol/L (98-107); Globulin 3.5 g/dL (1.3-4.6); Glomerular Filtration Rate 176.8 mL/min (90-130); Glucose 102 mg/dL (65-115); Lipase 10 U/L (13-60); Osmolality Calculated 280 mOsm/kg (285-295); Sodium 136 mmol/L (136-145); Total Bilirubin 0.2 mg/dL (0.15-1.2); Total Protein 7.5 g/dL (6.6-8.7)
[2021-02-10 09:58] LABS: Anion Gap 15.6 (5-19); Aspartate Amino Transferase 18 U/L (0-32); Potassium 2.6 mmol/L (3.5-5.1)
[2021-02-10 10:02] LABS: Add Urine Microscopic? NO; Charge for UA Resulting for Rev
[2021-02-10 10:04] LABS: Bilirubin Urine Neg (Negative); Blood Urine Neg (Negative); Glucose Urine UA Norm (Normal); Ketones Urine Negative (Negative); Leukocyte Esterase Urine Negative (Negative); Nitrate Urine Negative (Negative); Protein Urine Neg (Negative); Urine Appearance Clear (CLEAR); Urine Color Yellow (Yellow); Urobilinogen Urine Norm (Negative); pH Urine 8 (5-7)
--- NOTE | 2021-02-10 10:34 | P.HP_ITS ---
Providers/Chief Complaint Admitting Physician: General Surgery Kameron Nazario MD Primary Care Provider: Michael Leger, PLYWOOD MATCHER-C Chief Complaint: UPPER ABD PAIN SINCE SATURDAY:PAIN WORSENING History of Present Illness Bella Owusu is a 40 year old female who says she developed some persistent epigastric discomfort about 6 days ago. It has just continued to worsen as the days have gone by. She says the pain will sometimes radiate off to either side of her abdomen and around to her back. She notices that it gets worse when she eats, particularly tomato products. She has been taking some Tylenol for her discomfort and has not noticed any obvious fevers, but has had some hot flashes that she is attributed to the pain. She denies any changes of melena or other changes in bowel habits. She does not really feel gassy or bloated but has been nauseated. She has vomited but has no evidence of hematemesis. She came to the emergency department today and a CAT scan showed changes consistent with acute calculus cholecystitis. Her alkaline phosphatase was found to be somewhat elevated but her level other liver function studies were normal. The patient says she has had episodes of epigastric pain after eating over the past year, but always thought it was just indigestion. She has noticed some acidic foods will cause this more than any others, but there does not seem to be a particular thing that routinely causes it otherwise. She denies heartburn and does not take any antacids. She has no known history of peptic ulcer disease. Review of Systems General: Reports: 10 or more systems reviewed and unremarkable except in HPI and below Const: Denies: fever(s) ( I have had some hot flashes but I think it is just the pain ) GI: Reports: abdominal pain, nausea and vomiting; Denies: diarrhea or melena Medications/Allergies Home Medications Medication Instructions Recorded Confirmed Last Taken Type acetaminophen [Tylenol 8 Hour] 1,300 mg PO DAILY@0500 03/30/20 12/08/20 03/30/20 History buspirone 10 mg tablet 10 mg PO TID #90 tab 11/17/20 12/08/20 Unknown Rx metolazone 5 mg tablet 5 mg PO DAILY #30 tab 11/17/20 12/08/20 Unknown Rx potassium chloride 10 mEq 10 meq PO DAILY #30 cap 11/17/20 12/08/20 Unknown Rx capsule,extended release topiramate 25 mg tablet 25 mg PO BID #60 tab 11/17/20 12/08/20 Unknown Rx venlafaxine 150 mg 150 mg PO QAM #30 cap 11/17/20 12/08/20 Unknown Rx capsule,extended release 24 hr multivitamin 1 tab PO DAILY 11/28/20 12/08/20 Unknown History adalimumab 40 mg/0.8 mL 40 mg SUBCUT .Q7days #4 ea 12/08/20 12/08/20 Unknown Rx subcutaneous pen kit metoprolol tartrate 25 mg tablet 25 mg PO BID #60 tab 01/02/21 Unknown Rx Allergies Allergy/AdvReac Type Severity Reaction Status Date / Time medroxyprogesterone Allergy Severe afib Verified 12/08/20 10:37 [From Depo-Provera] diphtheria,pertussis Allergy SWELLING Verified 12/08/20 10:37 (acellular),te [From Adacel(Tdap Adolesn/Adult)(PF)] insect venom Allergy excessive Verified 12/08/20 10:37 swelling leflunomide Allergy Heart Palp Verified 12/08/20 10:37 to ER and GI complaints NSAIDS (Non-Steroidal Allergy VASCULITIS Verified 12/08/20 10:37 Anti-Inflamma methotrexate AdvReac Intermediate increased Verified 12/08/20 10:37 arthritis nodules faster PFSH Acute PFSH: Medical History (Updated 02/10/21 @ 10:41 by Kameron Nazario MD) Anxiety and depression Atrial fibrillation No episodes since I started metoprolol Edema Obesity Rheumatoid arthritis Surgical History (Updated 02/10/21 @ 10:34 by Kameron Nazario MD) H/O: x 3 Family History Father Diabetes Hypertension CAD (coronary artery disease) Lung disease Mother Hypertension Rheumatoid arthritis CAD (coronary artery disease) Lung disease Sister CAD (coronary artery disease) Cancer Hypertension Lung disease Stroke Family/Other Cancer Grandmother Dementia Other Heart disease Hypercholesteremia Liver disease Migraine Denies family history of Clotting disorder Chronic kidney disease (CKD) Suicide Anesthesia complication Bleeding disorder Social History (Updated 02/10/21 @ 10:36 by Kameron Nazario MD) Smoking and tobacco status: current every day smoker cigarettes Packs smoked per day: 1.5 Years cigarettes smoked: 20 Smoking risk assessment/counseling performed?: Yes Alcohol intake: never Desire information about alcohol rehabilitation?: No Counseling given: No Desire information about substance/drug rehabilitation?: No Counseling given: No Adopted: No Caregiver/support person: No Lives independently: Yes Household members: none Marital status: Single Number of children: 3 service: No Current occupational status: employed Current occupation: [employer] Pets and animals: Yes Pets & animals: cat(s) and dog(s) History of recent travel: No Current gender identity: Female Female Reproductive History: Spontaneous abortions: No Vitals/I&O/Wt Last Vital Signs Temp 97.7 F 02/10/21 08:37 Pulse 83 02/10/21 09:50 Resp 17 02/10/21 09:50 BP 128/78 02/10/21 09:50 Pulse Ox 96 02/10/21 09:50 Weight last 48 hrs Weight 350 lb Physical Exam Narrative: EXAM NARRATIVE: The patient was encountered in her room in the emergency department. She does not appear to be in any acute distress. The pupils are equal. The neck is free of any bruits. The lungs are clear anteriorly. The heart is regular. The abdomen is morbidly obese but is soft. Bowel sounds are present. The patient has some moderate epigastric tenderness and some mild left and right upper quadrant tenderness. She has a negative Jones's sign. No obvious masses are palpated. The extremities reveal no edema. She has some obvious rheumatoid nodules on her elbows. Neurologically the patient appears to be grossly intact. Data : 02/10/21 09:03 02/10/21 09:03 Other Labs: Laboratory Tests Laboratory Tests 02/10/21 09:03 HCG, Qual Negative 02/10/21 09:03 Total Bilirubin 0.2 AST 18 ALT 16 Alkaline Phosphatase 151 [address] Lip[address] Abd/Pel: Radiologist's impression: CT abdomen/pelvis February 10, 2021 IMPRESSION: 1. Fluid distended gallbladder with gallbladder wall thickening and surrounding induration and edema. Cholelithiasis. Findings suspicious for acute cholecystitis. This can be further evaluated with ultrasound. 2. Visualized common bile duct tapers normally 3. Hepatomegaly and splenomegaly. Diffuse fatty infiltration of the liver. 4. Right ovarian cyst measuring 2.4 x 2.6 cm. A&P Assessment and plan (1) Acute cholecystitis due to biliary calculus: I have discussed gallbladder disease and gallbladder surgery with the patient in some detail. She does have an ongoing history of symptoms that certainly could be consistent with biliary colic. We discussed how acute chol ecystitis is usually met with a recommendation for cholecystectomy earlier than later. We discussed gallbladder surgery in some detail. 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 She would like to proceed with a cholecystectomy today. The patient has been n.p.o. since yesterday other than some sips of fluid. I am going to make arrangements for a cholecystectomy today Status: Acute Attestations Medical Necessity Statement*: Based on my medical assessment, presenting symptoms and consideration of the scope of surgical therapy, I expect this patient will require treatment in the hospital for a period of time spanning less than 2 midnights, and is therefore being placed in observation status. Coding Level of Care Code Acute Senior Risk Analyst for Nai Arceo Diagnoses Acute cholecystitis due to biliary calculus K80.00
[2021-02-10] MEDS: sodium chloride 0.9% 1,000 ML 999 ML IV (10:49)
[2021-02-10] MEDS: morphine 4 mg/mL SDV 1 mL IVP (10:49)
--- NOTE | 2021-02-10 10:59 | P.ANESASSM_ITS ---
Pre-Anesthetic Assessment Pre-Anesthetic Assessment: Height/Weight: Height 1.8 m Weight 158.757 kg Temp Pulse Resp BP Pulse Ox 97.7 F 83 17 128/78 96 02/10/21 08:37 02/10/21 09:50 02/10/21 09:50 02/10/21 09:50 02/10/21 09:50 Proposed Procedure: Operation Date: 02/10/21 11:00 Proposed Procedures p Laparoscopic Cholecystectomy(Not Applicable) - Kameron Nazario MD Was Beta Sonja taken within 24 hours: Yes Was Clonidine taken within 24 hours: N/A Social: Social History: Tobacco and No alcohol Exam: Pre-Anes Outpt Exam: alert, oriented x 3 and regular rate & rhythm Airway: Submandibular: WNL Cervical ROM: WNL MP: 2 Dentition: False Pulmonary: Pulmonary: COPD CV/HEM: CV/HEM: Afib Metabolic: Metabolic: Morbid obesity Musc/skel: Musc/skel: RA Neuropsych: Neuropsych: Anxiety and Depression Anesthetic Plan: ASA status: 3 Anesthesia: General Risk of > 500 ml blood loss (7ml/kg in children): No Meds/Allergies Current Medications: Current Medications Generic Name Dose Route Start Last Admin Trade Name Freq PRN Reason Stop Dose Admin Sodium Chloride 1,000 mls @ 999 m ls/hr 02/10/21 10:05 02/10/21 10:49 Sodium Chloride 0.9% IV 02/10/21 11:05 999 mls/hr .Q1H1M ONE Administration PFSH Anesthesia PFSH: Medical History (Updated 02/10/21 @ 10:41 by Kameron Nazario MD) Anxiety and depression Atrial fibrillation No episodes since I started metoprolol Edema Obesity Rheumatoid arthritis Surgical History (Updated 02/10/21 @ 10:34 by Kameron Nazario MD) H/O: x 3 Family History Father Diabetes Hypertension CAD (coronary artery disease) Lung disease Mother Hypertension Rheumatoid arthritis CAD (coronary artery disease) Lung disease Sister CAD (coronary artery disease) Cancer Hypertension Lung disease Stroke Family/Other Cancer Grandmother Dementia Other Heart disease Hypercholesteremia Liver disease Migraine Denies family history of Clotting disorder Chronic kidney disease (CKD) Suicide Anesthesia complication Bleeding disorder Social History (Updated 02/10/21 @ 10:36 by Kameron Nazraio MD) Smoking and tobacco status: current every day smoker cigarettes Packs smoked per day: 1.5 Years cigarettes smoked: 20 Smoking risk assessment/counseling performed?: Yes Alcohol intake: never Desire information about alcohol rehabilitation?: No Counseling given: No Desire information about substance/drug rehabilitation?: No Counseling given: No Adopted: No Caregiver/support person: No Lives independently: Yes Household members: none Marital status: Single Number of children: 3 service: No Current occupational status: employed Current occupation: [employer] Pets and animals: Yes Pets & animals: cat(s) and dog(s) History of recent travel: No Current gender identity: Female Female Reproductive History: Spontaneous abortions: No Data Anesthesia CBC & Chem 7: 02/10/21 09:03 02/10/21 09:03 Other Labs: Laboratory Results - last 48 hr 02/10/21 02/10/21 02/10/21 09:03 09:03 09:03 WBC 13.2 H RBC 5.21 Hgb 15.3 Hct 44.4 MCV 85.2 MCH 29.4 MCHC 34.5 RDW 14.6 Plt Count 374 MPV 10.8 H Neut % (Auto) 68.8 Lymph % (Auto) 19.6 [place] % (Auto) 8.7 Eos % (Auto) 1.9 Baso % (Auto) 0.5 Neut # (Auto) 9.06 H Lymph # (Auto) 2.6 [place] # (Auto) 1.2 H Eos # (Auto) 0.3 Baso # (Auto) 0.1 Nucleated RBC % (auto) 0 Nucleated RBCs # 0.0 Sodium 136 Potassium 2.6 L* Chloride 94 L Carbon Dioxide 29 Anion Gap 15.6 BUN 6 Creatinine 0.4 L GFR Calculation 176.8 H Glucose 102 Calculated Osmolality 280 L Calcium 8.6 Total Bilirubin 0.2 AST 18 ALT 16 Alkaline Phosphatase 151 H Total Protein 7.5 Albumin 4.0 Globulin 3.5 Lipase 10 L HCG, Qual Negative Urine Color Urine Appearance Urine pH Ur Specific [place] Urine Protein Urine Glucose (UA) Urine Ketones Urine Blood Urine Nitrate Urine Bilirubin Urine Urobilinogen Ur Leukocyte Esterase 02/10/21 09:03 WBC RBC Hgb Hct MCV MCH MCHC RDW Plt Count MPV Neut % (Auto) Lymph % (Auto) [place] % (Auto) Eos % (Auto) Baso % (Auto) Neut # (Auto) Lymph # (Auto) [place] # (Auto) Eos # (Auto) Baso # (Auto) Nucleated RBC % (auto) Nucleated RBCs # Sodium Potassium Chloride Carbon Dioxide Anion Gap BUN Creatinine GFR Calculation Glucose Calculated Osmolality Calcium Total Bilirubin AST ALT Alkaline Phosphatase Total Protein Albumin Globulin Lipase HCG, Qual Urine Color Yellow Urine Appearance Clear Urine pH 8 H Ur Specific [place] 1.010 Urine Protein Neg Urine Glucose (UA) Norm Urine Ketones Negative Urine Blood Neg Urine Nitrate Negative Urine Bilirubin Neg Urine Urobilinogen Norm Ur Leukocyte Esterase Negative Cardiac Studies: Holter Monitor 12/15/20
[2021-02-10] MEDS: piperacillin-tazobactam 3.375 GM in sodium chloride 0.9% (plus) 50 ML IV (11:23)
--- NOTE | 2021-02-10 12:46 | P.OP_ITS ---
Operative Report Date of procedure: February 10, 2021 Pre-op Diagnosis: Acute calculus cholecystitis. Post-op diagnosis: same Procedure Done: Laparoscopic cholecystectomy. Specimens removed/disposition: Gallbladder. Surgeon: Kameron Nazario Anesthesia: General Estimated blood loss (mL): 10 Complications: None. Disposition: PACU Procedure: The patient was brought to the Operating Room and was placed in a supine position on the Operating Room table. General endotracheal anesthesia was induced. The abdomen was prepped and draped in a sterile fashion. A small vertical incision was carried just inferior to the umbilicus. Blunt dissection was carried out down to the fascia, which was grasped with a Yuliet clamp. A stay suture of 0 Vicryl was placed on either side of the midline and the midline fascia was incised. The underlying peritoneum was opened bluntly and the Haley port was placed directly into the peritoneal cavity and was held in place with the inflatable balloon. The peritoneal cavity was insufflated with carbon dioxide. The laparoscope was used to inspect the abdominal cavity. No gross abnormalities were initially noted with the exception of some omental adhesions along the lower midline. The gallbladder was not immediately identifiable. A 5 millimeter port was placed in the epigastrium under direct vision. Two 5- millimeter ports were placed on the right side of the abdomen under direct vision. The gallbladder was then able to be identified after the omentum was swept back. The gallbladder was acutely inflamed and was very distended as evidenced by the grasper not being able to hold onto it. Approximately 50 mL of brown, somewhat purulent appearing bile were suctioned out of the gallbladder and some was sent for Gram stain/culture. This decompressed the gallbladder so that it could be grasped and delete elevated. The patient had subacute adhesions all the way along the fundus that were taken down bluntly. Blunt dissection and hydrodissection were then carried out in the infundibular region of the gallbladder and the cystic duct and cystic artery were identified. The gallbladder was partially removed from the liver bed using cautery and the spatula to confirm the anatomy before the structures were clipped and divided. The gallbladder was then removed from the liver bed using cautery and the spatula. The plane between the gallbladder and the liver was very edematous, but also showed evidence of chronic inflammatory change/scarring. After the gallbladder had been removed from the liver bed, the laparoscope was moved to the epigastric port and the gallbladder was removed from the peritoneal cavity through the umbilical port site after being placed in a laparoscopic bag. The fascial incision at the umbilical incision had to be elongated slightly to allow passage of the laparoscopic bag with the gallbladder within it. The stay sutures of Vicryl were tied to each other at the umbilicus. Some additional [id number] sutures of 0 Vicryl were placed, closing the defect so that it was airtight. The perihepatic spaces were irrigated with saline and the liver bed was reinspected. No ongoing problems were seen. The remaining ports were removed from the abdominal wall and the pneumoperitoneum was evacuated. All skin incisions were closed using inverted interrupted sutures of 4-0 Vicryl. Benzoin and Steri-Strips were placed over the incisions and Band-Aids followed. The patient was taken to the Recovery Area in stable condition postoperatively.
--- NOTE | 2021-02-10 13:50 | ANE.PACU2 ---
Inpatient post-anesthesia follow up: Airway intact: Yes Vital signs: Temperature 97.6 F Pulse Rate 78 Respiratory Rate 18 Blood Pressure 130/90 Pulse Oximetry 94 Oxygen Delivery Me thod Room Air Oxygen Flow Rate 6 Fraction of Inspir ed Oxygen Hydration adequate: Yes Nausea and vomiting: No Pain level: 3 Mental status: Baseline
--- NOTE | 2021-02-10 15:00 | SUR.PHASEI ---
PT AWAKE ALERT PT REPOSITIONED SELF , ASSISTED PT WITH KNEES UP ON BED, VSS PT REQUESTS TO SLEEP FOR A LITTLE BIT, , ABD SOFT MOM TO WAITING ROOM.
[2021-02-10] MEDS: pantoprazole 40 mg SDV IVP (15:53)
[2021-02-10] MEDS: HYDROcodone-acetaminophen 5-325 mg Tablet PO (15:54)
--- NOTE | 2021-02-10 15:57 | PM.DCS ---
Discharge Providers Date of Admission: 02/10/21 15:06 Date of Discharge: February 10, 2021 Attending Provider at Admission: Kameron Nazario MD Attending Provider at Discharge: Kameron Nazario MD Primary Care Provider: DARREN Vieyra Diagnoses at Discharge Discharge Diagnosis (1) Acute cholecystitis due to biliary calculus: Status: Acute Reason for Visit Reason for Visit: UPPER ABD PAIN SINCE SATURDAY:PAIN WORSENING Hospital Course Hospital Course This is the 40-year-old white female who presented with a 5-day history of upper abdominal pain, nausea and vomiting. A CAT scan revealed changes consistent with acute calculus cholecystitis. The patient's white blood cell count was mildly elevated but her liver function studies were grossly normal. Her potassium was significantly low, however, at 2.6. She mentioned that her potassium usually ran low when she takes a tablet of potassium at home every day. She can usually tell when it gets too low. The patient was given a K rider of 40 mEq in addition to some additional potassium and IV fluid. She underwent a laparoscopic cholecystectomy the same day. Her gallbladder showed changes consistent with acute cholecystitis. Postoperatively, the patient was feeling very well and was very anxious to go home. I had suggested to her that I might recommend she stay in the hospital for further antibiotics and potassium supplementation with a recheck of her electrolytes and other laboratory studies tomorrow morning. She was fairly adamant that she wanted to go home and was comfortable taking oral antibiotics and increasing her normal potassium supplementation at home. Arrangements were made for her to be discharged from the hospital with plans for her to follow-up with her primary physician's office within the next several days. I am also going to make arrangements for her to follow-up in my office following her operation today. She will be on an antibiotic for a week and also has some pain medication available if needed. She was instructed with respect to wound care, activity limitations, diet, etc. Physical Exam Narrative: EXAM NARRATIVE: Postoperative: Bowel sounds are present. Laparoscopic incisions look good. Discharge Data Data Completed and Pending: Completed Studies During Hospitalization Category Date Time Status CT abdomen pelvis w con* [id number] Urge nt Cat Scan 02/10/21 09:12 Completed Pending at discharge Category Date Time Status Body Fluid Cultur e & GS Routine Lab 02/10/21 11:52 Results Pathology: Surgic al [PTH] Routine Pth 02/10/21 12:56 Received Labs from last 24 hours 02/10/21 02/10/21 02/10/21 09:03 09:03 09:03 WBC RBC Hgb Hct MCV MCH MCHC RDW Plt Count MPV Neut % (Auto) Lymph % (Auto) [place] % (Auto) Eos % (Auto) Baso % (Auto) Neut # (Auto) Lymph # (Auto) [place] # (Auto) Eos # (Auto) Baso # (Auto) Nucleated RBC % (a uto) Nucleated RBCs # Sodium 136 Potassium 2.6 L* Chloride 94 L Carbon Dioxide 29 Anion Gap 15.6 BUN 6 Creatinine 0.4 L GFR Calculation 176.8 H Glucose 102 Calculated Osmolal ity 280 L Calcium 8.6 Total Bilirubin 0.2 AST 18 ALT 16 Alkaline Phosphata se 151 H Total Protein 7.5 Albumin 4.0 Globulin 3.5 Lipase 10 L HCG, Qual Negative Urine Color Yellow Urine Appearance Clear Urine pH 8 H Ur Specific [place] y 1.010 Urine Protein Neg Urine Glucose (UA) Norm Urine Ketones Negative Urine Blood Neg Urine Nitrate Negative Urine Bilirubin Neg Urine Urobilinogen Norm Ur Leukocyte Ldea ase Negative 02/10/21 09:03 WBC 13.2 H RBC 5.21 Hgb 15.3 Hct 44.4 MCV 85.2 MCH 29.4 MCHC 34.5 RDW 14.6 Plt Count 374 MPV 10.8 H Neut % (Auto) 68.8 Lymph % (Auto) 19.6 [place] % (Auto) 8.7 Eos % (Auto) 1.9 Baso % (Auto) 0.5 Neut # (Auto) 9.06 H Lymph # (Auto) 2.6 [place] # (Auto) 1.2 H Eos # (Auto) 0.3 Baso # (Auto) 0.1 Nucleated RBC % (a uto) 0 Nucleated RBCs # 0.0 Sodium Potassium Chloride Carbon Dioxide Anion Gap BUN Creatinine GFR Calculation Glucose Calculated Osmolal ity Calcium Total Bilirubin AST ALT Alkaline Phosphata se Total Protein Albumin Globulin Lipase HCG, Qual Urine Color Urine Appearance Urine pH Ur Specific Grav[place] y Urine Protein Urine Glucose (UA) Urine Ketones Urine Blood Urine Nitrate Urine Bilirubin Urine Urobilinogen Ur Leukocyte Leda ase Vitals: Last Vital Signs Temp 97.6 F 02/10/21 13:43 Pulse 94 02/10/21 14:56 Resp 18 02/10/21 14:56 BP 128/92 02/10/21 14:56 Pulse Ox 94 02/10/21 14:56 Discharge Plan Discharge Patient Disposition: Home Condition: Stable Prescriptions: New hydrocodone-acetaminophen 5-325 mg tablet 1 - 2 tab PO Q5H PRN (Reason: pain) Qty: 30 RF: 0 amoxicillin-pot clavulanate [Augmentin] 875-125 mg tablet 1 tab PO BID Qty: 15 RF: 0 Continued Humira Pen 40 mg/0.8 mL pen injector kit 40 mg SUBCUT .Q7days Qty: 4 RF: 3 potassium chloride 10 mEq capsule, extended release 10 meq PO DAILY Qty: 30 RF: 2 metolazone 5 mg tablet 5 mg PO DAILY Qty: 30 RF: 2 venlafaxine [Effexor XR] 150 mg capsule,extended release 24hr 150 mg PO QAM Qty: 30 RF: 2 buspirone 10 mg tablet 10 mg PO TID Qty: 90 RF: 2 Topamax 25 mg tablet 25 mg PO BID Qty: 60 RF: 2 multivitamin Tablet 1 tab PO DAILY RF: 0 metoprolol tartrate 25 mg tablet 25 mg PO BID Qty: 60 RF: 5 Held acetaminophen [Tylenol 8 Hour] 650 mg Tablet Extended Release 1,300 mg PO DAILY@0500 RF: 0 Hold Instructions: Resume on 02/15/21. Do not take additional acetaminophen in the same five-hour period as the prescribed [place]. Discharge Orders: Discharge Order (Routine); Ordered 02/10/21 Ordered By: Kameron Nazario Referrals: Kameron Nazario MD [Physician] - 7-10 days (Nursing: Please have the patient / family call Dr. Nazario's office on Saturday ([phone]) and make an appointment for the patient to be seen in 7-10 days.) Michael Leger, [employer] ENGINE[employer] [Primary Care Provider] - 4-7 days (For recheck of potassium / follow-up hypokalemia.) Discharge Diet: Advance as tolerated Discharge Activity: Limit activity as instructed Patient Instructions: Opioid Safety Activity Restrictions/Additional Instructions: 1. Discharge to home today. 2. Appointment to see Dr. Nazario in 10-14 days as above. 3. Bandaids off tomorrow, leave Steri-Strip(s) on, may shower. 4. [place] 5/325 1-2 tablets by mouth every 5 hours as needed for pain. #30, no refills. 5. Augmentin 875/125 1 tablet by mouth twice daily until gone. #15, no refills. No lifting over 20 pounds, no repetitive bending or twisting, no strenuous pushing / pulling or other heavy activity. Ambulate regularly. May go up and down steps if needed. Discharge Attestations Time Spent in Discharge Care*: less than 30 min Quality Metrics Clinical Quality Measures During this hospital stay, did patient experience: None Coding Level of Care Code Acute g [facility] note Diagnoses Acute cholecystitis due to biliary calculus K80.00
--- NOTE | 2021-02-10 16:39 | PC.NURSE ---
Pt arrived to floor from PACU at approximately 1545. Dr. Nazario to bedside at approximately 1600 to discuss discharge with pt. Pt agreeable to discharge plan and orders were put in by Dr. Nazario. Pt was A&Ox4, VSS, and pain under control at time of discharge at 1640.
== END 2021-02-10 16:42 | disposition home or self-care (01) ==
LOC: ER 10:36 → OPS 10:51 → MEDSURG 15:08
PROVIDERS: Emergency Provider Physician Assistant; PCP Nurse Practitioner; Visit Provider Surgery
PROC: 0FT44ZZ Resection of Gallbladder, Percutaneous Endoscopic Approach (ICD-10-PCS; CPT 47562; principal; 2021-02-10 11:00)
DX: K80.10 Calculus of gallbladder with chronic cholecystitis without obstruction (principal); J44.9 Chronic obstructive pulmonary disease, unspecified; I48.91 Unspecified atrial fibrillation; E66.01 Morbid (severe) obesity due to excess calories; Z68.42 Body mass index [BMI] 45.0-49.9, adult; M06.9 Rheumatoid arthritis, unspecified; F41.9 Anxiety disorder, unspecified; F32.9 Major depressive disorder, single episode, unspecified; F17.210 Nicotine dependence, cigarettes, uncomplicated
CPT/HCPCS: 47562; 74177; 80053; 81003; 81025; 83690; 85025; 87070; 87075; 87205; 88304; 96365; C9113; J0330; J1100; J1200; J2250; J2270; J2405; J2543; J2704; J2710; J3010; J3490; J7030; Q9967

== ENCOUNTER → 2021-02-17 10:21 | Outpatient (BNVA) | payer BC, SELFPAY | PROVIDERS: PCP Nurse Practitioner; Visit Provider Nurse Practitioner | DX: E87.6 Hypokalemia (principal) | CPT/HCPCS: 80053; 85025 ==

== ENCOUNTER 2021-02-27 09:50 | Outpatient (CLI) | payer BC, MEDICAID, SELFPAY ==
--- NOTE | 2021-02-27 10:15 | USCV_ITS ---
Bella Owusu Age: 40 Gender: F : 1980 Exam Date: 02/27/2021 10:59 Ordering Phys: Angelina Rosado MD ([email or web address]) Technologist: John Swain Exam Location: [facility] [place] Indication: SOB BP: 105 / 70 HR: 77 Rhythm: Sinus Technical Quality: Technically difficult study MEASUREMENTS (Male / Female) Normal Values 2D ECHO LV Diastolic Diameter PLAX 3.0 cm 4.2 - 5.9 / 3.9 - 5.3 cm LV Systolic Diameter PLAX 2.1 cm IVS Diastolic Thickness 0.9 cm 0.6 - 1.0 / 0.6 - 0.9 cm IVS Systolic Thickness 1.0 cm LVPW Diastolic Thickness 2.5 cm 0.6 - 1.0 / 0.6 - 0.9 cm LVPW Systolic Thickness 2.6 cm LVOT Diameter 2.1 cm LV Ejection Fraction 2D Teich 62.4 % LV Ejection Fraction MOD 2C 48.2 % LV Ejection Fraction 2C AL 47.5 % LA Diameter 3.0 cm LA Width 3.3 cm LA Height 4.0 cm RA Width 3.4 cm RA Height 4.1 cm Aorta at Sinotubular Diameter 2.4 cm M-MODE Aortic Annulus Diameter 2.9 cm LA Ao Ratio MM 1.1 MV E Point Septal Separation 0.4 cm DOPPLER AV Peak Velocity 130.0 cm/s LVOT Peak Velocity 137.0 cm/s AV Area Cont Eq vti 3.6 cm squared AV Area Cont Eq pk 3.5 cm squared MV Area PHT 3.9 cm squared Mitral E to A Ratio 1.1 MV E' Velocity 39.0 cm/s Mitral E to MV E' Ratio 5.6 Mitral E to LV E' Lateral Ratio 5.4 Mitral E to LV E' Septal Ratio 5.9 TR Peak Velocity 95.0 cm/s TR Peak Gradient 3.6 mmHg TR Mean Velocity 69.0 cm/s TR Mean Gradient 2.1 mmHg TR Velocity Time Integral 21.8 cm Right Atrial Pressure 3.0 mmHg Pulmonary Artery Systolic Pressu 6.6 mmHg RV Acceleration Time 0.1 s RV Ejection Time 0.2 s RV AcT/ET 0.3 FINDINGS Left Ventricle Normal left ventricular size and systolic function, EF 55 %. No regional wall motion abnormalities. Right Ventricle Normal right ventricular size and systolic function. Right Atrium The right atrium is normal in size. Left Atrium The left atrium is normal in size. Mitral Valve No gross abnormalities noted Aortic Valve Tricuspid Valve No gross abnormalities noted Pulmonic Valve Pulmonic valve not well visualized. Pericardium Normal pericardium without effusion. Aorta Normal ascending aorta dimension. CONCLUSIONS Normal left ventricular size and systolic function, EF 55 %. No regional wall motion abnormalities. Normal cardiac chamber sizes. No significant stenotic or regurgitant lesions There is no pericardial effusion. There are no intracardiac masses. No similar previous study is available for comparison. Dr Angelina Rosado MD FACC (Electronically Signed) Final Date: 02 March 2021 09:50 S
== END 2021-02-27 09:51 | disposition home or self-care (01) ==
PROVIDERS: PCP Nurse Practitioner; Visit Provider Internal Medicine Cardiovascular Disease
DX: R06.02 Shortness of breath (principal)
CPT/HCPCS: 93306

== ENCOUNTER → 2021-05-11 16:25 | Outpatient (BNVA) | payer BC, MEDICAID, SELFPAY | PROVIDERS: PCP Nurse Practitioner; Visit Provider Nurse Practitioner | DX: F41.9 Anxiety disorder, unspecified (principal); F32.9 Major depressive disorder, single episode, unspecified | CPT/HCPCS: 80053 ==

== ENCOUNTER → 2021-05-15 08:54 | Outpatient (BNVA) | payer BC, SELFPAY | PROVIDERS: PCP Nurse Practitioner; Visit Provider Nurse Practitioner | DX: E87.6 Hypokalemia (principal) | CPT/HCPCS: 84132 ==

== ENCOUNTER 2021-05-31 | Outpatient (CLI) | payer BC, MEDICAID, SELFPAY | END 2021-05-31 00:01 | disposition home or self-care (01) | LOC: RAD 07-17 09:51 | PROVIDERS: PCP Nurse Practitioner; Visit Provider Nurse Practitioner Family | DX: Z20.822 Contact with and (suspected) exposure to COVID-19 (principal); R05.9 Cough, unspecified | CPT/HCPCS: 87400; 87635 ==

== ENCOUNTER → 2021-07-27 16:37 | Outpatient (BNVA) | payer BC, MEDICAID, SELFPAY | PROVIDERS: PCP Nurse Practitioner; Visit Provider Nurse Practitioner | DX: R60.0 Localized edema (principal); E66.9 Obesity, unspecified; F41.9 Anxiety disorder, unspecified; F32.9 Major depressive disorder, single episode, unspecified; E87.6 Hypokalemia | CPT/HCPCS: 80053; 82306; 82607; 85025 ==

== ENCOUNTER → 2021-10-31 09:52 | Outpatient (BNVA) | payer BC, MEDICAID, SELFPAY | PROVIDERS: PCP Nurse Practitioner; Visit Provider Nurse Practitioner | DX: E55.9 Vitamin D deficiency, unspecified (principal); R60.0 Localized edema; E66.9 Obesity, unspecified; F41.9 Anxiety disorder, unspecified; F32.9 Major depressive disorder, single episode, unspecified; E87.6 Hypokalemia | CPT/HCPCS: 80048; 82306; 82607; 84443 ==

== ENCOUNTER → 2021-12-26 09:46 | Outpatient (BNVA) | payer BC, MEDICAID, SELFPAY | PROVIDERS: PCP Nurse Practitioner; Visit Provider Nurse Practitioner | DX: E87.6 Hypokalemia (principal); F42.8 Other obsessive-compulsive disorder; N92.0 Excessive and frequent menstruation with regular cycle | CPT/HCPCS: 80053; 85025 ==

== ENCOUNTER → 2022-03-23 10:20 | Outpatient (BNVA) | payer BC, MEDICAID, SELFPAY | PROVIDERS: PCP Nurse Practitioner; Visit Provider Nurse Practitioner | DX: E87.6 Hypokalemia (principal); R00.2 Palpitations; E66.9 Obesity, unspecified; F32.9 Major depressive disorder, single episode, unspecified; F41.9 Anxiety disorder, unspecified; M06.30 Rheumatoid nodule, unspecified site; R60.0 Localized edema | CPT/HCPCS: 80053; 82607; 85025; 85651; 86140 ==

== ENCOUNTER 2022-05-04 10:49 | Outpatient (CLI) | payer BC, MEDICAID, SELFPAY ==
--- NOTE | 2022-05-04 11:03 | US_ITS ---
WS: [id number] TRANSABDOMINAL PELVIC AND TRANSVAGINAL PELVIC ULTRASOUND HISTORY: N92.0 - Excessive and frequent menstruation with regular ... COMPARISON: None available. Uterus: 9.4 cm x 5.5 cm x 5.3 cm. Uterus is mildly enlarged and very heterogeneous. Lobulated contour of the uterus with areas of shadowing. Quality of this examination is compromised by body habitus. A lthough the no discrete mass is identified favor there are uterine fibroids. Endometrium: 1.0 cm. Very poorly visualized and partially obscured by body habitus. Right ovary: 4.5 cm x 2.9 cm x 3.5 cm. Mildly enlarged ovary. There are several small follicles assoc iated with the ovary. The largest follicle measures 1.9 x 2.0 x 2.3 cm. There are low-level echoes wi thin the follicles. No solid mass. These follicles did not fit size criteria for cyst. Left ovary: 3.2 cm x 2.3 cm x 2.1 cm. Small follicles. No solid mass. Normal vascularity. Free fluid: No free fluid. US/US pelv w/transvag [id number] IMPRESSION: 1. Quality of this examination is limited by body habitus. 2. Enlarged lobulated heterogeneous uterus. Although no discrete mass is ident ified favor there are probably fibroids present. 3. Several small complex follicle RIGHT ovary. These follicles did not fit siz e criteria for a cyst.
== END 2022-05-04 10:50 | disposition home or self-care (01) ==
LOC: RAD 10:53
PROVIDERS: PCP Nurse Practitioner; Visit Provider Nurse Practitioner
DX: N92.0 Excessive and frequent menstruation with regular cycle (principal); N85.2 Hypertrophy of uterus
CPT/HCPCS: 76830; 76856

== ENCOUNTER → 2022-06-15 10:04 | Outpatient (BNVA) | payer BC, MEDICAID, SELFPAY | PROVIDERS: PCP Nurse Practitioner; Visit Provider Nurse Practitioner | DX: E87.6 Hypokalemia (principal) | CPT/HCPCS: 80053; 82607 ==

== ENCOUNTER 2022-07-05 09:00 | Oncology outpatient (recurring) (ONCR) | payer BC, MEDICAID, SELFPAY ==
[2022-06-19 08:48] VITALS: BP 148/86; PULSE 86; TEMP 36.4; O2SAT 98
[2022-06-19 09:10] LABS: Basophils # 0.1 10^3/uL (0.0-0.1); Basophils % 0.4 %; Eosinophils # 0.6 10^3/uL (0.0-0.8); Eosinophils % 5.2 %; Hematocrit 41.3 % (37.0-47.0); Hemoglobin 13.6 g/dL (11.5-15.3); Lymphocytes # 3.8 10^3/uL (0.8-4.8); Lymphocytes % 33.2 %; Mean Corpuscular HGB Conc 32.9 g/dL (30.0-36.0); Mean Corpuscular Hemoglobin 30.5 pg (28.0-34.0); Mean Corpuscular Volume 92.6 fl (81-99); Mean Platelet Volume 9.7 fL (7.4-10.4); Monocytes # 0.9 10^3/uL (0.2-0.9); Monocytes % 7.5 %; Neutrophils # 6.05 10^3/uL (1.8-7.7); Neutrophils % 53.3 %; Nucleated Red Blood Cells % 0 %; Platelet Count 304 10^3/cmm (130-400); Red Blood Count 4.46 10^6/uL (4.1-5.3); Red Cell Distribution Width 13.8 % (12.1-15.1); White Blood Count 11.4 10^3/uL (4.0-10.0)
[2022-06-19 09:32] LABS: Alanine Aminotransferase 19 U/L (0-33); Albumin Level 3.7 g/dL (3.5-5.2); Alkaline Phosphatase 112 U/L (35-105); Aspartate Amino Transferase 15 U/L (0-32); Blood Urea Nitrogen 4 mg/dL (6-20); C Reactive Protein 5.2 mg/L (0.0-4.9); Calcium 8.7 mg/dL (8.5-10.5); Carbon Dioxide 24 mmol/L (22-29); Chloride 106 mmol/L (98-107); Glucose 85 mg/dL (65-115); Osmolality Calculated 286 mOsm/kg (285-295); Sodium 140 mmol/L (136-145); Total Bilirubin 0.2 mg/dL (0.15-1.2); Total Protein 6.7 g/dL (6.6-8.7)
[2022-06-19 09:37] LABS: Anion Gap 13.8 (5-19); Potassium 3.8 mmol/L (3.5-5.1)
[2022-07-05] VITALS (7 sets, daily range): BP systolic 109–126; BP diastolic 73–83; PULSE 70–84; RESP 16–20; TEMP 36.3–36.9; O2SAT 97–99
[2022-07-05] MEDS: sodium chloride 0.9% 250 ML 75 ML IV (09:30)
[2022-07-05] MEDS: diphenhydrAMINE 50 mg/mL SDV 1mL 25 MG IVP (09:33)
[2022-07-05] MEDS: INFLIXIMAB ABDA IV (10:18)
[2022-07-05] MEDS: SODIUM CHLORIDE 0.9% IV (10:18)
== END 2022-07-08 23:59 | disposition home or self-care (01) ==
PROVIDERS: PCP Nurse Practitioner; Visit Provider Internal Medicine Rheumatology
DX: M05.79 Rheumatoid arthritis with rheumatoid factor of multiple sites without organ or systems involvement (principal)
CPT/HCPCS: 80053; 85025; 86140; 96375; 96413; 96415; J1200; J2920; J7050; Q5104

== ENCOUNTER → 2022-07-10 08:36 | Outpatient (BNVA) | payer BC, SELFPAY | PROVIDERS: PCP Nurse Practitioner; Visit Provider Nurse Practitioner | DX: E87.6 Hypokalemia (principal) | CPT/HCPCS: 80048 ==

== ENCOUNTER 2022-07-19 09:25 | Oncology outpatient (recurring) (ONCR) | payer BC, MEDICAID, SELFPAY ==
[2022-07-19 10:32] VITALS: BP 147/98; PULSE 88; RESP 18; TEMP 36.5; O2SAT 97
[2022-07-19] MEDS: sodium chloride 0.9% (100 ml) 100 ML 25 ML (10:47)
[2022-07-19] MEDS: diphenhydrAMINE 50 mg/mL SDV 1mL 25 MG IVP (10:49)
[2022-07-19] MEDS: dexamethasone 10 mg/mL INJ 6 MG IVP (10:52)
[2022-07-19 11:58] VITALS: BP 128/80; PULSE 73; RESP 18; TEMP 36.1; O2SAT 95
[2022-07-19 12:28] VITALS: BP 143/89; PULSE 86; RESP 18; TEMP 35.7
[2022-07-19 14:08] VITALS: BP 143/84; PULSE 85; RESP 18; TEMP 35.6; O2SAT 94
== END 2022-08-08 23:59 | disposition home or self-care (01) ==
PROVIDERS: PCP Nurse Practitioner; Visit Provider Internal Medicine Rheumatology
DX: M05.79 Rheumatoid arthritis with rheumatoid factor of multiple sites without organ or systems involvement (principal)
CPT/HCPCS: 96365; 96366; 96375; 96413; 96415; J1100; J1200; J1745; J7050

== ENCOUNTER → 2022-08-20 10:00 | Outpatient (BNVA) | payer BC, SELFPAY | PROVIDERS: PCP Nurse Practitioner; Referring Provider Nurse Practitioner; Visit Provider Obstetrics & Gynecology | DX: N92.6 Irregular menstruation, unspecified (principal) | CPT/HCPCS: 81025 ==

== ENCOUNTER 2022-08-23 09:24 | Oncology outpatient (recurring) (ONCR) | payer BC, SELFPAY ==
[2022-08-23] VITALS (7 sets, daily range): BP systolic 132–173; BP diastolic 78–98; PULSE 64–74; RESP 16–18; TEMP 35.7–36.9; O2SAT 96–99
[2022-08-23] MEDS: diphenhydrAMINE 50 mg/mL SDV 1mL 25 MG IVP (11:31)
[2022-08-23] MEDS: sodium chloride 0.9% 250 ML 75 ML IV (11:32)
[2022-08-23] MEDS: dexamethasone 10 mg/mL INJ 6 MG IV (12:14)
== END 2022-09-07 23:59 | disposition home or self-care (01) ==
PROVIDERS: PCP Nurse Practitioner; Visit Provider Internal Medicine Rheumatology
DX: M05.79 Rheumatoid arthritis with rheumatoid factor of multiple sites without organ or systems involvement (principal)
CPT/HCPCS: 96361; 96365; 96366; 96375; J1100; J1200; J7050; Q5104

== ENCOUNTER → 2022-10-01 10:13 | Outpatient (BNVA) | payer BC, MEDICAID, SELFPAY | PROVIDERS: PCP Nurse Practitioner; Visit Provider Internal Medicine Rheumatology | DX: Z79.899 Other long term (current) drug therapy (principal); M05.79 Rheumatoid arthritis with rheumatoid factor of multiple sites without organ or systems involvement | CPT/HCPCS: 36415; 80076; 82565; 85025; 86140 ==

== ENCOUNTER 2022-10-04 12:36 | Oncology outpatient (recurring) (ONCR) | payer BC, SELFPAY ==
[2022-10-04] VITALS (8 sets, daily range): BP systolic 127–138; BP diastolic 77–84; PULSE 74–83; RESP 16–18; TEMP 35.9–37; O2SAT 91–98
[2022-10-04] MEDS: sodium chloride 0.9% 250 ML 100 ML IV (13:54)
[2022-10-04] MEDS: diphenhydrAMINE 50 mg/mL SDV 1mL 25 MG IVP (14:00)
[2022-10-04] MEDS: methylPREDNISolone sod succ 40 mg SDV IV (14:27)
[2022-10-04] MEDS: infliximab-abda 700 MG in sodium chloride 0.9% 250 ML 10 MG IV (14:50)
== END 2022-10-08 23:59 | disposition home or self-care (01) ==
LOC: ONCMED 12:37
PROVIDERS: PCP Nurse Practitioner; Visit Provider Internal Medicine Rheumatology
DX: M05.79 Rheumatoid arthritis with rheumatoid factor of multiple sites without organ or systems involvement (principal)
CPT/HCPCS: 96375; 96413; J1200; J2920; J7050; Q5104

== ENCOUNTER 2022-10-09 11:50 | Inpatient (IN) | payer BC, MEDICAID, SELFPAY ==
[2022-10-04 10:16] LABS: Add Urine Microscopic? NO; Charge for UA Resulting for Rev
[2022-10-04 10:17] VITALS: BMI 44.4
[2022-10-04 10:35] LABS: Basophils # 0.1 10^3/uL (0.0-0.1); Basophils % 0.8 %; Eosinophils # 0.2 10^3/uL (0.0-0.8); Eosinophils % 2.8 %; Hematocrit 42.5 % (37.0-47.0); Hemoglobin 14.7 g/dL (11.5-15.3); Lymphocytes # 2.8 10^3/uL (0.8-4.8); Lymphocytes % 35.9 %; Mean Corpuscular HGB Conc 34.6 g/dL (30.0-36.0); Mean Corpuscular Hemoglobin 31.4 pg (28.0-34.0); Mean Corpuscular Volume 90.8 fl (81-99); Mean Platelet Volume 10.7 fL (7.4-10.4); Monocytes # 0.9 10^3/uL (0.2-0.9); Monocytes % 11.2 %; Neutrophils # 3.85 10^3/uL (1.8-7.7); Nucleated Red Blood Cells % 0 %; Platelet Count 257 10^3/cmm (130-400); Red Blood Count 4.68 10^6/uL (4.1-5.3); Red Cell Distribution Width 13.1 % (12.1-15.1); White Blood Count 7.9 10^3/uL (4.0-10.0)
[2022-10-04 10:45] LABS: Bilirubin Urine Neg (Negative); Blood Urine Neg (Negative); Glucose Urine UA Norm (Normal); Ketones Urine Negative (Negative); Leukocyte Esterase Urine Negative (Negative); Nitrate Urine Negative (Negative); OR HCG Qualitative Urine Negative (Negative); Protein Urine Neg (Negative); Urine Appearance Clear (CLEAR); Urine Color Straw (Yellow); Urobilinogen Urine Norm (Negative); pH Urine 6 (5-7)
[2022-10-04 10:53] LABS: Alanine Aminotransferase 166 U/L (0-33); Albumin Level 4.1 g/dL (3.5-5.2); Alkaline Phosphatase 100 U/L (35-105); Anion Gap 15.2 (5-19); Aspartate Amino Transferase 91 U/L (0-32); Blood Urea Nitrogen 10 mg/dL (6-20); Calcium 9.4 mg/dL (8.5-10.5); Carbon Dioxide 28 mmol/L (22-29); Chloride 96 mmol/L (98-107); Globulin 2.9 g/dL (1.3-4.6); Glomerular Filtration Rate 110.2 mL/min (90-130); Glucose 108 mg/dL (65-115); Osmolality Calculated 282 mOsm/kg (285-295); Potassium 3.2 mmol/L (3.5-5.1); Sodium 136 mmol/L (136-145); Total Bilirubin 0.3 mg/dL (0.15-1.2)
--- NOTE | 2022-10-04 10:58 | P.ANESASSM_ITS ---
Pre-Anesthetic Assessment Height/Weight: Height 1.78 m Weight 140.614 kg Preop Diagnosis: Menorrhagia, fibroids Operation Date: 10/09/22 08:15 Proposed Procedures p Total abdominal hysterectomy 29175,D25.9(Not Applicable) - Chris Mcneill MD Familial anesthetic complications: difficult spinal ( my spaces are tight ) Social Tobacco and No alcohol Exam alert, oriented x 3, clear to auscultation bilaterally and regular rate & rhythm Airway Mallampati: Class II Dentition: false Pulmonary Asthma CV/HEM PVCs Metabolic Morbid Obesity chronic hypokalemia [facility] [place] Rheumatoid Arthritis Anesthetic Plan ASA status: 3 Anesthesia: General Risk of > 500 ml blood loss (7ml/kg in children): No Medications/Allergies Home Medications Medication Instructions Recorded Confirmed Last Taken Type acetaminophen 650 mg 1,300 mg PO DAILY@0500 03/30/20 10/04/22 10/04/22 History tablet,extended release (Tylenol 8 Hour) compressor, for nebulizer #1 ea 05/31/21 10/01/22 Unknown Rx nebulizer accessories #1 ea 05/31/21 10/01/22 Unknown Rx albuterol sulfate 2.5 mg/3 mL 2.5 mg (3 mL) inhalation QID PRN 06/15/22 10/04/22 Unknown Rx (0.083 %) solution for nebulization shortness of breath or wheezing #75 mL albuterol sulfate 90 mcg/actuation 2 puff inhalation Q6H PRN 06/15/22 10/04/22 Unknown Rx aerosol inhaler (ProAir HFA) shortness of breath or wheezing #6.7 grams potassium chloride 10 mEq See Rx Instructions PO DAILY #120 06/15/22 10/04/22 10/04/22 Rx capsule,extended release caps semaglutide 1 mg/dose (2 mg/1.5 1 mg (0.75 mL) SUBCUT .weekly #3 mL 06/15/22 10/04/22 Unknown Rx mL) subcutaneous pen injector venlafaxine 150 mg 150 mg PO QAM #30 caps 06/15/22 10/04/22 10/04/22 Rx capsule,extended release 24 hr (Effexor XR) promethazine-DM 6.25 mg-15 mg/5 mL 5 ml PO Q6H PRN cough #120 mL 06/20/22 07/09/30 Unknown Rx oral syrup infliximab-abda 100 mg intravenous IV 08/20/22 10/01/22 10/04/22 History solution (Renflexis) Allergies Allergy/AdvReac Type Severity Reaction Status Date / Time medroxyprogesterone Allergy Severe afib Verified 10/01/22 09:52 [From Depo-Provera] diphtheria,pertussis Allergy SWELLING Verified 10/01/22 09:52 (acellular),te [From Adacel(Tdap Adolesn/Adult)(PF)] insect venom Allergy excessive Verified 10/01/22 09:52 swelling leflunomide Allergy Heart Palp Verified 10/01/22 09:52 to ER and GI complaints NSAIDS (Non-Steroidal Allergy VASCULITIS Verified 10/04/22 10:17 Anti-Inflamma methotrexate AdvReac Intermediate increased Verified 10/01/22 09:52 arthritis nodules faster tofacitinib [From Xeljanz] AdvReac Intermediate fatigue Verified 10/01/22 09:52 and nausea PFSH Anesthesia Medical History (Updated 10/01/22 @ 10:28 by Vikram Lamar MD) Anxiety and depression Atrial fibrillation No episodes since I started metoprolol Edema FH: cholecystectomy 02/15/21 No pertinent past medical history neghx: htn,dm,thyroid,dvt/pe PCP: Michael Leger Obesity Rheumatoid arthritis Surgical History (Updated 10/01/22 @ 10:28 by Vikram Lamar MD) H/O: x 3 History of cholecystectomy (~01/2021) Family History Father Diabetes Hypertension CAD (coronary artery disease) Lung disease Mother Hypertension Rheumatoid arthritis CAD (coronary artery disease) Lung disease Sister CAD (coronary artery disease) Hypertension Lung disease Stroke Colon cancer dx'd at age 45 Family/Other Breast cancer paternal Grandmother Dementia Other Heart disease Hypercholesteremia Liver disease Migraine Denies family history of Ovarian cancer Clotting disorder Chronic kidney disease (CKD) Suicide Anesthesia complication Bleeding disorder Uterine cancer Female Reproductive History Date of last menstrual period: 05/20/22 Spontaneous abortions: No Data Anesthesia 10/04/22 10:07 10/04/22 10:07 Short CBC 10/04/22 Range/Units 10:07 WBC 7.9 (4.0-10.0) 10^3/uL Hgb 14.7 (11.5-15.3) g/dL Hct 42.5 (37.0-47.0) % MCV 90.8 (81-99) fl Plt Count 257 (130-400) 10^3/cmm Neut % (Auto) 49.0 % Neut # (Auto) 3.85 (1.8-7.7) 10^3/uL BMP 10/04/22 10:07 Sodium 136 Potassium 3.2 L Chloride 96 L Carbon Dioxide 28 BUN 10 Creatinine 0.6 Glucose 108 Calcium 9.4 Liver Function 10/04/22 Range/Units 10:07 Total Bilirubin 0.3 (0.15-1.2) mg/dL AST 91 H (0-32) U/L ALT 166 H (0-33) U/L Alkaline Phosphatase 100 (35-105) U/L Albumin 4.1 (3.5-5.2) g/dL Urine 10/04/22 Range/Units 10:07 Urine Color Straw (Yellow) Urine Appearance Clear (CLEAR) Urine pH 6 (5-7) Ur Specific [place] 1.010 (1.005-1.030) Urine Protein Neg (Negative) Urine Glucose (UA) Norm (Normal) Urine Ketones Negative (Negative) Urine Nitrate Negative (Negative) Urine Bilirubin Neg (Negative) Ur Leukocyte Esterase Negative (Negative) Cardiac Studies: Echocardiogram 02/27/21 Holter Monitor 12/15/20
[2022-10-09] VITALS (25 sets, daily range): BP systolic 109–154; BP diastolic 66–99; PULSE 80–103; RESP 16–21; TEMP 36.2–36.8; O2SAT 90–96
--- NOTE | 2022-10-09 07:01 | W.PM.OPSUD ---
Surgery/Procedure H&P Update DATE OF PROCEDURE: October 09, 2022 DATE H&P PERFORMED: 09/28/22 H&P UPDATE INFORMATION: I have reviewed H&P completed within last 30 days, I have examined patient prior to procedure and No changes to prior documentation PREOP DIAGNOSIS: Menorrhagia, fibroids PLANNED PROCEDURE: Operation Date: 10/09/22 08:35 Proposed Procedures p Total abdominal hysterectomy 47901,D25.9(Not Applicable) - Chris Mcneill MD
[2022-10-09] MEDS: enoxaparin 30 mg/0.3 mL Syringe SUBCUT (07:09)
[2022-10-09] MEDS: sodium chloride 0.9% 500 ML IV (07:09)
[2022-10-09] MEDS: scopolamine 1.5 Patch 1 PATCH TRANSDERMA (07:09)
--- NOTE | 2022-10-09 07:36 | P.ANESUD_ITS ---
Pre-Anesthetic Update Pre-Anesthetic Assessment: Date of Surgery/Procedure: 10/09/22 Preop Naomie gnosis: Menorrhagia, fibroids Proposed Procedure: Operation Date: 10/09/22 08:35 Proposed Procedures p Total abdominal hysterectomy 96692,D25.9(Not Applicable) - Chris Mcneill MD Last Intake: Intake Last Liquid Date 10/08/22 Last Liquid Time 22:00 Last Solid Date 10/08/22 Last Solid Time 22:00 Cardiac Studies: Echocardiogram 02/27/21 Holter Monitor 12/15/20
--- NOTE | 2022-10-09 07:36 | ANES.PAUD2 ---
Pre-Anesthetic Update Pre-Anesthetic Assessment: Date of Surgery/Procedure: 10/09/22 Preop Diagnosis: Menorrhagia, fibroids Proposed Procedure: Operation Date: 10/09/22 08:35 Proposed Procedures p Total abdominal hysterectomy 05650,D25.9(Not Applicable) - Chris Mcneill MD Last Intake: Intake Last Liquid Date 10/08/22 Last Liquid Time 22:00 Last Solid Date 10/08/22 Last Solid Time 22:00 Cardiac Studies: Echocardiogram 02/27/21 Holter Monitor 12/15/20
[2022-10-09 07:41] LABS: Anion Gap 12.2 (5-19); Blood Urea Nitrogen 7 mg/dL (6-20); Calcium 8.5 mg/dL (8.5-10.5); Carbon Dioxide 24 mmol/L (22-29); Chloride 107 mmol/L (98-107); Glucose 97 mg/dL (65-115); Osmolality Calculated 286 mOsm/kg (285-295); Potassium 4.2 mmol/L (3.5-5.1); Sodium 139 mmol/L (136-145)
[2022-10-09 08:47] LABS: OR HCG Qualitative Urine Negative (Negative)
[2022-10-09] MEDS: sodium chloride 0.9% 1,000 ML 30 ML IV (08:50)
[2022-10-09] MEDS: ceFOXitin 2,000 MG in sodium chloride 0.9% (plus) 50 ML 100 MG IV (09:01)
[2022-10-09] MEDS: sodium chloride 0.9% (100 ml) 100 ML (10:15)
--- NOTE | 2022-10-09 11:42 | P.OP_ITS ---
Operative Report Date of procedure: October 09, 2022 Pre-op diagnosis: Preop Diagnosis Menorrhagia, fibroids Post-op diagnosis: same Procedure done: Total abdominal hysterectomy Specimens removed/disposition: Uterus with left and right fallopian tube Surgeon: Chris Mcneill MD Estimated blood loss (mL): 100 IV fluids (mL): 1,500 Urine output (mL): 200 Procedure: The patient was taken to the operating room, and after adequate level of general anesthesia was achieved, the patient was placed in the Trendelenburg position, prepped and draped in the usual sterile fashion. Subsequently, a Pfannenstiel incision was made and the incision was taken down to the fascia. The fascia was opened up sharply. The fascia was extended to the length of the incision using the Matias scissors. At this time, the rectus muscles were dissected from the fascia superiorly and inferiorly to the symphysis pubis. The midline rectus muscles were opened sharply and extended superiorly and inferiorly. The peritoneum was visualized, grasped, opened sharply, and extended superiorly and inferiorly towards the bladder. The abdominal contents were packed superiorly away from the operative site using the lap packs. At this time, the pelvic organs were noted. The inferior and superior blades were placed in place on the Prabhu self-retaining retractor. Bowel was packed away from the operative site. The fundus of the uterus was then grasped with a triple-tooth tenaculum and retracted out of the pelvic cavity into the abdominal site. At this point, Otilia clamps were placed in both right and left adnexal regions. Subsequently, using the LigaSure cautery unit, the round ligaments were grasped, cauterized, and dissected. The bladder flap was then formed and the bladder flap was pushed away down anteriorly over the lower uterine segment, pushed away from the operative site on both the right and left sides. Subsequently, the posterior leaf of the broad ligament was opened sharply and the LigaSure instrument was then placed below the level of the ovary in both the right and left side, care being taken not to damage bowel or uterus and the infundibulopelvic ligament was then grasped, cauterized, and again dissected. Further dissection of the broad ligament was carried down posteriorly towards the uterine vessels. The bladder was pushed inferiorly down towards the vagina. Subsequently, the uterine vessels were then grasped again with the LigaSure machine, cauterized, and dissected. The cardinal ligaments were further grasped, dissected, and suture ligated, again with the LigaSure machine. At that point, the LigaSure machine instrument was stopped and straight Zeppelin clamps were used on the cardinal ligaments down towards the uterosacral ligaments. The cardinal ligaments were grasped, dissected with a scalpel and then ligated with transfixion sutures with #1 Vicryl suture down to the uterosacral ligaments. The uterosacral ligaments were grasped, dissected, and suture ligated again with #1 Vicryl suture and transfixion sutures. At that time, the bladder had been pushed over the vagina and at this time right-angle Zeppelin clamps were placed on the vagina at the level of the cervix, and using the Joselyn scissors, the cervix was dissected away from the vagina. At this time, the vaginal cuff was then closed using interrupted sutures of #1 Vicryl suture from the midline to each lateral corner. After the good hemostasis had been achieved in the vaginal cuff, both the right and left adnexa was visualized and no more bleeding was noted. The cuff was intact with no bleeding noted. The bladder was visualized and no bleeding was noted. Seprafilm was then placed over the vaginal cuff. The Prabhu self- retaining retractor was removed as well as the anterior and inferior blades. The lap packs were removed, and at this time, general closure of the abdomen was carried out. The peritoneum was closed with a 2-0 Vicryl suture and continuous running suture. The fascia was closed using a #1 Vicryl suture from each corner to the midline. Subcutaneous adipose tissue was infiltrated with Exparel controlled and pain management. Subcutaneous tissue was cauterized. No bleeding was noted. The subcutaneous tissue was then reapproximated using plain sutures and interrupted sutures, and the skin was closed using Insorb absorbable subcuticular laine and Dermabond. The patient tolerated the procedure well and was transferred to the recovery room in excellent condition. The patient returned to the floor for recovery.
[2022-10-09] MEDS: ketorolac 30 mg/mL INJ IVP ×2 (13:35→19:47)
--- NOTE | 2022-10-09 15:02 | ANE.PACU2 ---
Inpatient post-anesthesia follow up: Airway intact: Yes Vital signs: Temperature 97.8 F Pulse Rate 88 Respiratory Rate 16 Blood Pressure 132/80 Pulse Oximetry 95 Oxygen Delivery Me thod Room Air Oxygen Flow Rate 1 Fraction of Inspir ed Oxygen Hydration adequate: Yes Nausea and vomiting: No Pain level: 3 Mental status: Baseline
[2022-10-09] MEDS: dextrose 5%-lactated ringers 1,000 ML 125 ML IV (15:11)
[2022-10-09] MEDS: docusate sodium 100 mg Capsule PO (19:47)
[2022-10-10] MEDS: ketorolac 30 mg/mL INJ IVP (01:42)
[2022-10-10 04:00] VITALS: BP 121/70; PULSE 90; RESP 18; TEMP 36.8; O2SAT 95
[2022-10-10 05:34] LABS: Hematocrit 37.7 % (37.0-47.0); Mean Corpuscular HGB Conc 31.8 g/dL (30.0-36.0); Mean Corpuscular Hemoglobin 29.6 pg (28.0-34.0); Mean Corpuscular Volume 92.9 fl (81-99); Mean Platelet Volume 10.9 fL (7.4-10.4); Platelet Count 266 10^3/cmm (130-400); Red Blood Count 4.06 10^6/uL (4.1-5.3); Red Cell Distribution Width 13.1 % (12.1-15.1); White Blood Count 13.2 10^3/uL (4.0-10.0)
--- NOTE | 2022-10-10 08:02 | P.PN_ITS ---
Subjective Subjective: Mrs. Owusu 41-year-old female is status post total abdominal hysterectomy postoperative day 1. Refers no pain. Ambulating without difficulty. Vitals/I&O/Wt Last Vital Signs Temp 98.2 F 10/10/22 04:00 Pulse 90 10/10/22 04:00 Resp 18 10/10/22 04:00 BP 121/70 10/10/22 04:00 Pulse Ox 95 10/10/22 04:00 O2 Del Method Room Air 10/10/22 04:00 O2 Flow Rate 1 10/09/22 13:07 10/09/22 10/10/22 10/10/22 22:59 06:59 14:59 Output Total 900 / 1600 1180 / 2780 Balance -900 / 600 -1180 / -580 Physical Exam Narrative: GA: Alert and oriented ?3. HEENT: WNL. Heart: Regular rate and rhythm. Lungs: Clear to auscultation bilaterally. Abdomen: Bowel sounds present, nontender, minimal tenderness, incision clean and dry, no redness, pain or edema. CORRECTIONAL GUARD: No bleeding. Extremities: No edema, no cyanosis, no calves pain. Urinary Catheter Management: Hernandez: Cath Placed During This Visit: yes, but has since been removed by the nurse Reason for Continuing Indwelling Catheter: Decision to DC Catheter Urinary Catheter Date of Insertion: 10/09/22 Urinary Catheter Time of Insertion: 09:30 Date Urinary Catheter Removed: 10/10/22 Time Urinary Catheter Discontinued: 05:00 Data 10/10/22 05:00 10/09/22 07:05 A&P Assessment and plan (1) Status post abdominal hysterectomy: Mrs. Owusu 41-year-old female is status post total abdominal hysterectomy. She is afebrile and hemodynamically stable postoperative day 1. Tolerating diet well. Referred passing flatus. Ambulating without difficulty Plan Postop observation Attestations Medical Necessity Statement*: In my professional opinion poor admitting diagnosis Coding Level of Care Code Acute Code for Chg Fwd Diagnoses Status post abdominal hysterectomy Z90.710
[2022-10-10] MEDS: venlafaxine ER (24HR) 150 mg Capsule PO (09:10)
[2022-10-10] MEDS: docusate sodium 100 mg Capsule PO (09:10)
[2022-10-10] MEDS: ibuprofen 800 mg tablet PO (09:10)
[2022-10-10] MEDS: potassium chloride ER 10 mEq Tablet PO (09:10)
[2022-10-10 13:45] VITALS: BP 121/70; PULSE 90; RESP 18; TEMP 36.8; O2SAT 95
--- NOTE | 2022-10-10 13:45 | PM.OBGYDC ---
Discharge Providers PROGRAM FACILITATOR Date of Admission: 10/09/22 11:50 Date of Discharge: 10/10/22 Attending Provider at Admission: Chris Mcneill MD Attending Provider at Discharge: Chris Mcneill MD Primary PROGRAM FACILITATOR: Chris Mcneill MD Primary Care Provider: DRAREN Vieyra Diagnoses at Discharge Discharge Diagnosis (1) Status post abdominal hysterectomy: Status: Acute Reason for Visit Reason for Visit: D25.9 Hospital Course Hospital Course Ms. Owusu is a 41 year old with a history of abnormal uterine bleeding unresponsive to medical management. Admitted for planned total abdominal hysterectomy. The total abdominal hysterectomy was performed without complications. Overnight observation was uneventful. She is afebrile and hemodynamically stable postoperative day 1. Tolerating diet well. Ambulating without difficulty. Pain well under control. Patient requesting to go home. She was counseled regarding pelvic rest for 6 weeks (no sex, no tampons, no vaginal douches). Return to the emergency room if any fever, increased bleeding or pain. Physical Exam Narrative: GA: Alert and oriented ?3. HEENT: WNL. Heart: Regular rate and rhythm. Lungs: Clear to auscultation bilaterally. Abdomen: Bowel sounds present, nontender, minimal tenderness, incision clean and dry, no redness, pain or edema. CONFIGURATION MANAGER: No bleeding. Extremities: No edema, no cyanosis, no calves pain. Urinary Catheter Management: Hernandez: Cath Placed During This Visit: yes, but has since been removed by the nurse Reason for Continuing Indwelling Catheter: Decision to DC Catheter Urinary Catheter Date of Insertion: 10/09/22 Urinary Catheter Time of Insertion: 09:30 Date Urinary Catheter Removed: 10/10/22 Time Urinary Catheter Discontinued: 05:00 History History History 3 Term 3 0 Miscarriages/Ectopic 0 Living Children 3 Discharge Data Studies Completed and Pending Pending at discharge Category Date Time Status Pathology: Surgical [PTH] Routine Pth 10/09/22 11:21 Received Laboratory Results WBC 13.2 10^3/uL (4.0-10.0) H 10/10/22 05:00 RBC 4.06 10^6/uL (4.1-5.3) L 10/10/22 05:00 Hgb 12.0 g/dL (11.5-15.3) 10/10/22 05:00 Hct 37.7 % (37.0-47.0) 10/10/22 05:00 MCV 92.9 fl (81-99) 10/10/22 05:00 MCH 29.6 pg (28.0-34.0) 10/10/22 05:00 MCHC 31.8 g/dL (30.0-36.0) 10/10/22 05:00 RDW 13.1 % (12.1-15.1) 10/10/22 05:00 Plt Count 266 10^3/cmm (130-400) 10/10/22 05:00 MPV 10.9 fL (7.4-10.4) H 10/10/22 05:00 Neut % (Auto) 49.0 % 10/04/22 10:07 Lymph % (Auto) 35.9 % 10/04/22 10:07 [place] % (Auto) 11.2 % 10/04/22 10:07 Eos % (Auto) 2.8 % 10/04/22 10:07 Baso % (Auto) 0.8 % 10/04/22 10:07 Neut # (Auto) 3.85 10^3/uL (1.8-7.7) 10/04/22 10:07 Lymph # (Auto) 2.8 10^3/uL (0.8-4.8) 10/04/22 10:07 [place] # (Auto) 0.9 10^3/uL (0.2-0.9) 10/04/22 10:07 Eos # (Auto) 0.2 10^3/uL (0.0-0.8) 10/04/22 10:07 Baso # (Auto) 0.1 10^3/uL (0.0-0.1) 10/04/22 10:07 Nucleated RBC % (auto) 0 % 10/04/22 10:07 Nucleated RBCs # 0.0 /100WBC 10/04/22 10:07 Sodium 139 mmol/L (136-145) 10/09/22 07:05 Potassium 4.2 mmol/L (3.5-5.1) 10/09/22 07:05 Chloride 107 mmol/L (98-107) 10/09/22 07:05 Carbon Dioxide 24 mmol/L (22-29) 10/09/22 07:05 Anion Gap 12.2 (5-19) 10/09/22 07:05 BUN 7 mg/dL (6-20) 10/09/22 07:05 Creatinine 0.5 mg/dL (0.5-0.9) 10/09/22 07:05 GFR Calculation 136.0 mL/min (90-130) H 10/09/22 07:05 Glucose 97 mg/dL (65-115) 10/09/22 07:05 Calculated Osmolality 286 mOsm/kg (285-295) 10/09/22 07:05 Calcium 8.5 mg/dL (8.5-10.5) 10/09/22 07:05 Total Bilirubin 0.3 mg/dL (0.15-1.2) 10/04/22 10:07 AST 91 U/L (0-32) H 10/04/22 10:07 ALT 166 U/L (0-33) H 10/04/22 10:07 Alkaline Phosphatase 100 U/L (35-105) 10/04/22 10:07 Total Protein 7.0 g/dL (6.6-8.7) 10/04/22 10:07 Albumin 4.1 g/dL (3.5-5.2) 10/04/22 10:07 Globulin 2.9 g/dL (1.3-4.6) 10/04/22 10:07 Urine Color Straw (Yellow) 10/04/22 10:07 Urine Appearance Clear (CLEAR) 10/04/22 10:07 Urine pH 6 (5-7) 10/04/22 10:07 Ur Specific [place] 1.010 (1.005-1.030) 10/04/22 10:07 Urine Protein Neg (Negative) 10/04/22 10:07 Urine Glucose (UA) Norm (Normal) 10/04/22 10:07 Urine Ketones Negative (Negative) 10/04/22 10:07 Urine Blood Neg (Negative) 10/04/22 10:07 Urine Nitrate Negative (Negative) 10/04/22 10:07 Urine Bilirubin Neg (Negative) 10/04/22 10:07 Urine Urobilinogen Norm mg/dL (Negative) 10/04/22 10:07 Ur Leukocyte Esterase Negative (Negative) 10/04/22 10:07 Urine HCG, Qual Negative (Negative) 10/09/22 06:53 Blood Type O Positive 10/09/22 07:05 Rho(D) Type Positive 10/09/22 07:05 Antibody Screen Negative 10/09/22 07:05 Vitals Last Vital Signs Temp 98.2 F 10/10/22 04:00 Pulse 90 10/10/22 04:00 Resp 18 10/10/22 04:00 BP 121/70 10/10/22 04:00 Pulse Ox 95 10/10/22 04:00 O2 Del Method Room Air 10/10/22 04:00 O2 Flow Rate 1 10/09/22 13:07 Discharge Plan Discharge Patient Disposition: Home Condition: Stable Prescriptions: New hydrocodone-acetaminophen 5-325 mg tablet 1 tab PO Q4H PRN (Reason: pain) Qty: 30 0RF acetaminophen 325 mg capsule 325 mg PO Q4H PRN (Reason: fever or pain) Qty: 60 0RF Continued (DME) nebulizer accessories Kit See Rx Instructions .Route Qty: 1 0RF Rx Instructions: As directed (DME) compressor, for nebulizer Device See Rx Instructions .Route Qty: 1 0RF Rx Instructions: As directed albuterol sulfate [ProAir HFA] 90 mcg/actuation HFA aerosol inhaler 2 puff inhalation Q6H PRN (Reason: shortness of breath or wheezing) Qty: 6.7 2RF potassium chloride 10 mEq capsule, extended release See Rx Instructions PO DAILY Qty: 120 2RF Rx Instructions: 20mEq-40mEq PO daily; semaglutide 1 mg/dose (2 mg/1.5 mL) pen injector 1 mg SUBCUT .weekly Qty: 3 2RF venlafaxine [Effexor XR] 150 mg capsule,extended release 24hr 150 mg PO QAM Qty: 30 2RF albuterol sulfate 2.5 mg /3 mL (0.083 %) solution for nebulization 2.5 mg inhalation QID PRN (Reason: shortness of breath or wheezing) Qty: 75 1RF Renflexis 100 mg recon soln 100 mg IV DIRECTED promethazine-DM 6.25-15 mg/5 mL syrup 5 ml PO Q6H PRN (Reason: cough) Qty: 120 0RF acetaminophen [Tylenol 8 Hour] 650 mg Tablet Extended Release 1,300 mg PO DAILY@0500 Hold Instructions: Resume on 02/15/21. Do not take additional acetaminophen in the same five-hour period as the prescribed [place]. Discharge Orders: Discharge Order (Routine); Ordered 10/10/22 Ordered By: Chris Mcneill Referrals: Chris Mcneill MD [Physician] - 2 weeks ( Your 2 week follow up with Dr Mcneill will be 10/24/22 at 10:45am Your 6 week follow up with Dr Mcneill will be 11/22/22 at 11:00am ) Discharge Diet: Usual diet Discharge Activity: Limit activity as instructed Patient Instructions: Opioid Safety, Hysterectomy (GEN) Activity Restrictions/Additional Instructions: 1. Please call [facility] on next working day to make your post-operative appointment in 2 weeks. 2. Please stay home until you come back to the clinic on first post-hospatilization check up. 3. Please follow instructions on your medications CAREFULLY. 4. If you have abdominal incision, do not cover it unless dressing is necessary because of drainage. OK to shower, but avoid bath. Leave steri-strips until they fall off. If they are still on one week after surgery, you may remove them. 5. If you had vaginal surgery or vaginal repair, Dr. Mcneill may instruct you to take SITZ bath. 6. Yellow, blood tinged odorous vaginal discharge is usually normal after hysterectomy or vaginal surgeries. 7. No SEXUAL INTERCOURSE, tampons, or douches until you are completely released from the post-operative care. 8. Avoid constipation by eating right and maybe using some Metamucil or Milk of Magnesia. 9. All prescription refills are given during the working hours. Please do no wait till it runs out. Call the clinic at [phone] before your medication runs out. The clinic will get in touch with your doctor to prescribe medications if necessary. 10. Please remain within 40 mile radius from our hospital because emergencies do happen now and then during the post-operative period. 11. If you have stairs at home, take one step at a time slowly and minimize the number of trips. It helps to stay in one floor for the next few days. No lifting except what you can lift by one hand until you are released from the post-operative care. 12. Driving is discouraged until you are well healed. It may be 3-4 weeks before you feel strong enough to drive. You should be able to turn and look through the rear window without pain and you should be able to push the brake pedal very hard without pain before you drive. No fast rules, but SAFETY should be your primary concern. DO NOT drive if you are on sedating medications such as narcotics. 13. Call the clinic (during working hours) to make urgent appointment or go to the Emergency room, if any of the following occurs: i. Vaginal bleeding becomes heavy, more than a period. ii. Incision becomes red and sore, or drains pus. iii. Your TEMPERATURE is over 100.4F or you have chill. iv. IV site becomes red and swollen (a little ``knot?? is usually OK) v. Persistent nausea and vomiting vi. Persistent constipation or diarrhea vii. Rash or allergic reaction to medications. Discharge Attestations PROGRAM FACILITATOR Time Spent in Discharge Care*: greater than 30 min Coding Level of Care Code Acute Code for Chg Fwd Diagnoses Status post abdominal hysterectomy Z90.710
== END 2022-10-10 14:05 | disposition home or self-care (01) | DRG 743 ==
LOC: OBGYN 11:52
PROVIDERS: Anesthesiology; Admitting Provider Obstetrics & Gynecology; PCP Nurse Practitioner; Visit Provider Obstetrics & Gynecology
PROC: 0UT90ZZ Resection of Uterus, Open Approach (ICD-10-PCS; CPT 58150; principal; 2022-10-09 08:25)
DX: N92.0 Excessive and frequent menstruation with regular cycle (principal); D25.9 Leiomyoma of uterus, unspecified; F32.A Depression, unspecified; F17.200 Nicotine dependence, unspecified, uncomplicated
CPT/HCPCS: 36415; 51702; 80048; 80053; 81003; 81025; 84703; 85025; 85027; 86850; 86900; 88307; C9290; J0131; J0330; J0694; J1100; J1170; J1650; J1885; J2250; J2371; J2405; J2704; J3010; J3490; J7030; J7040; J7121

== ENCOUNTER → 2022-10-11 11:03 | Outpatient (BNVA) | payer BC, MEDICAID, SELFPAY | PROVIDERS: PCP Nurse Practitioner; Visit Provider Nurse Practitioner | DX: R73.9 Hyperglycemia, unspecified (principal) | CPT/HCPCS: 80053; 80061; 83036 ==

== ENCOUNTER → 2022-10-24 11:36 | Outpatient (BNVA) | payer BC, SELFPAY | PROVIDERS: PCP Nurse Practitioner; Visit Provider Nurse Practitioner Women's Health | DX: R35.0 Frequency of micturition (principal) | CPT/HCPCS: 81000; 87086 ==

== ENCOUNTER 2022-11-15 12:39 | Oncology outpatient (recurring) (ONCR) | payer BC, SELFPAY ==
[2022-11-15] VITALS (8 sets, daily range): BP systolic 125–135; BP diastolic 66–83; PULSE 70–74; RESP 16–18; TEMP 35.6–36.1; O2SAT 94–95
[2022-11-15] MEDS: sodium chloride 0.9% 250 ML 75 ML IV (13:29)
[2022-11-15] MEDS: diphenhydrAMINE 50 mg/mL SDV 1mL 25 MG IVP (13:33)
[2022-11-15] MEDS: acetaminophen 325 mg Tablet 650 MG PO (13:33)
[2022-11-15] MEDS: methylPREDNISolone sod succ 40 mg SDV IV (13:48)
[2022-11-15] MEDS: infliximab-abda 700 MG in sodium chloride 0.9% 250 ML 10 MG IV (14:25)
== END 2022-12-08 23:59 | disposition home or self-care (01) ==
PROVIDERS: PCP Nurse Practitioner; Visit Provider Internal Medicine Rheumatology
DX: M05.79 Rheumatoid arthritis with rheumatoid factor of multiple sites without organ or systems involvement (principal)
CPT/HCPCS: 96375; 96413; 96415; J1200; J2920; J7050; Q5104

== ENCOUNTER → 2022-12-26 08:47 | Outpatient (BNVA) | payer BC, SELFPAY | PROVIDERS: PCP Nurse Practitioner; Visit Provider Nurse Practitioner | DX: J02.9 Acute pharyngitis, unspecified; E55.9 Vitamin D deficiency, unspecified; Z53.20 Procedure and treatment not carried out because of patient's decision for unspecified reasons; M05.79 Rheumatoid arthritis with rheumatoid factor of multiple sites without organ or systems involvement | CPT/HCPCS: 80053; 82306; 85025; 85651; 86140; 86803; 87880 ==

== ENCOUNTER 2022-12-27 12:27 | Oncology outpatient (recurring) (ONCR) | payer BC, SELFPAY ==
[2022-12-27] VITALS (8 sets, daily range): BP systolic 129–146; BP diastolic 80–89; PULSE 71–81; RESP 16; TEMP 36.1–36.6; O2SAT 95–98; BMI 48.2
[2022-12-27] MEDS: methylPREDNISolone sod succ 40 mg SDV IV (13:12)
[2022-12-27] MEDS: acetaminophen 325 mg Tablet 650 MG PO (13:12)
[2022-12-27] MEDS: sodium chloride 0.9% 250 ML 75 ML IV (13:13)
== END 2023-01-08 23:59 | disposition home or self-care (01) ==
LOC: ONCMED 12:28
PROVIDERS: PCP Nurse Practitioner; Visit Provider Internal Medicine Rheumatology
DX: M05.79 Rheumatoid arthritis with rheumatoid factor of multiple sites without organ or systems involvement (principal)
CPT/HCPCS: 96375; 96413; 96415; J2920; J7050; Q5104

== ENCOUNTER → 2023-01-21 13:46 | Outpatient (BNVA) | payer BC, SELFPAY | PROVIDERS: PCP Nurse Practitioner; Visit Provider Internal Medicine Rheumatology | DX: R06.02 Shortness of breath (principal); J90 Pleural effusion, not elsewhere classified | CPT/HCPCS: 71046 ==

== ENCOUNTER 2023-01-23 20:15 | Emergency (ER) | payer BC, MEDICAID, SELFPAY ==
[2023-01-23 20:18] VITALS: BP 139/88; PULSE 100; RESP 18; TEMP 36.6; O2SAT 93; BMI 45.9
--- NOTE | 2023-01-23 20:39 | XRR_ITS ---
PROCEDURE INFORMATION: Exam: XR Chest Exam date and time: 01/23/2023 9:09 PM Age: 42 years old Clinical indication: Shortness of breath; Patient HX: PT states she had a chest xray for SOB and was found to have pleural effusions on both sides. PT today has severe SOB on exertion. PT is extremely out of breath talking as well. ( end ) TECHNIQUE: Imaging protocol: Radiologic exam of the chest. Views: 1 view. COMPARISON: CR XR chest 2V* [id number] 01/21/2023 1:56 PM FINDINGS: Lungs: Compressive atelectasis noted at each lung base. No convincing superimposed pneumonia or edema. Pleural spaces: Bilateral pleural effusions. No pneumothorax on either side. Heart/Mediastinum: Cardiac silhouette is normal in size for technique. Bones/joints: Age appropriate. XR/XR chest 1V portable [id number] IMPRESSION: Stable but unexplained bilateral pleural effusions. No convincing airspace disease or interstitial edema.
--- NOTE | 2023-01-23 21:01 | ECG_ITS ---
[facility] Test Date: 2023-01-23 Pat Name: Bella Owusu Department: Room: Gender: Female Tow Operator: : 1980 Requested By: Ursula Alonso Order Number: [id number] Tony MD: Fawad Hudson M.D. Measurements Intervals [place] Rate: 103 P: 71 NH: 155 QRS: 79 QRSD: 97 T: 73 QT: 334 QTc: 439 Interpretive Statements SINUS TACHYCARDIA NONSPECIFIC ST & T-WAVE ABNORMALITY ABNORMAL RHYTHM ECG Compared to ECG 11/12/2020 17:54:15 T-wave abnormality now present Sinus rhythm no longer present Electronically Signed On 01-25-2023 14:09:16 KNOCKDOWN MAN by Fawad Hudson M.D. [id number]
--- NOTE | 2023-01-23 21:07 | W.ED.SOB ---
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 Associated symptoms: Deny abdominal pain, chest pain, fever(s), nausea or vomiting Review of Systems Const: Denies: fever(s), chills, body aches or change in appetite ENMT: Denies: throat pain or dental pain Card: Denies: chest pain Resp: Reports: dyspnea GI: Denies: abdominal pain, nausea, vomiting or diarrhea Musc: Denies: neck pain or back pain Skin/Breast: Denies: rash Neuro: Denies: headache(s) [facility] PFSH: Medical History Anxiety and depression Atrial fibrillation No episodes since I started metoprolol Edema FH: cholecystectomy 02/15/21 Metabolic syndrome No pertinent past medical history neghx: htn,dm,thyroid,dvt/pe PCP: Michael Leger Obesity, morbid, BMI 40.0-49.9 Rheumatoid arthritis Surgical History H/O: x 3 History of cholecystectomy (~01/2021) History of total abdominal hysterectomy (~10/09/22) PAPA, bilateral salpingectomy performed by Dr. Mcneill at [facility] in [place], [place] Family History Father Diabetes Hypertension CAD (coronary artery disease) Lung disease Mother Hypertension Rheumatoid arthritis CAD (coronary artery disease) Lung disease Sister CAD (coronary artery disease) Hypertension Lung disease Stroke Colon cancer dx'd at age 45 Family/Other Breast cancer paternal Grandmother Dementia Other Heart disease Hypercholesteremia Liver disease Migraines Denies family history of Ovarian cancer Clotting disorder Chronic kidney disease (CKD) Suicide Anesthesia complication Bleeding disorder Uterine cancer Female Reproductive History: Spontaneous abortions: No Physical Exam Const: COMMON NORMALS: no acute distress, patient oriented x3 and healthy appearing HENMT: COMMON NORMALS: normocephalic and atraumatic HEAD & SCALP: normocephalic and atraumatic Neck/C-Spine: COMMON NORMALS: full ROM and supple Chest: COMMONS NORMALS: normal inspection of the chest and normal palpation of entire chest wall Resp: COMMON NORMALS: normal respiratory effort, No retractions, No use of accessory muscles and clear to auscultation bilaterally AUSCULTATION: clear to auscultation bilaterally Cardio: COMMON NORMALS: regular rate, regular rhythm and No murmurs present (Cardio) RATE: regular rate RHYTHM: regular rhythm Extremity: COMMON NORMALS: normal to inspection and full ROM Neuro: COMMON NORMALS: patient oriented x3, moves all extremities and no focal motor deficits Psych: COMMON NORMALS: mental status grossly normal, Normal thought process present and cooperative THOUGHT PROCESS: Normal thought process present Skin: COMMON NORMALS: no rashes or lesions noted and no wounds GENERAL SKIN EXAM: no rashes or lesions noted Course Vital Signs: Vital signs: Vital Signs Temperature 97.8 F 01/23/23 20:18 Pulse Rate 100 01/23/23 20:18 Respiratory Rate 18 01/23/23 20:18 Blood Pressure 139/88 01/23/23 20:18 Pulse Oximetry 93 01/23/23 20:18 Oxygen Delivery Me thod Room Air 01/23/23 20:18 MDM - SOB/Dyspnea Medical Decision Making Patient presents here with some dyspnea does have pleural effusions that are unchanged she is hypokalemic, likely causing some of her weakness we will replace her potassium we will start her on doxycycline she supposed to follow-up with pulmonology return if worsening she understands agrees to plan. Medical Records I reviewed the patient's medical records. Lab Data I reviewed the patient's lab results. 01/23/23 20:57 01/23/23 20:57 Labs/Radiology: Radiology Impressions Chest X-Ray 01/23/23 20:39 IMPRESSION: Stable but unexplained bilateral pleural effusions. No convincing airspace disease or interstitial edema. Laboratory Results WBC 7.12 10^3/uL (3.29-11.43) 01/23/23 20:57 RBC 4.80 10^6/uL (3.85-5.65) 01/23/23 20:57 Hgb 13.60 g/dL (11.27-16.99) 01/23/23 20:57 Hct 41.6 % (36-47) 01/23/23 20:57 MCV 86.7 fl (85-98) 01/23/23 20:57 MCH 28.3 pg (27-33) 01/23/23 20:57 MCHC 32.7 g/dL (30-55) 01/23/23 20:57 RDW 13.1 % (12.1-15.1) 01/23/23 20:57 Plt Count 341 10^3/cmm (157-399) 01/23/23 20:57 MPV 9.5 fL (7.4-10.4) 01/23/23 20:57 Neut % (Auto) 47.2 % 01/23/23 20:57 Lymph % (Auto) 32.3 % 01/23/23 20:57 [place] % (Auto) 9.4 % 01/23/23 20:57 Eos % (Auto) 10.4 % 01/23/23 20:57 Baso % (Auto) 0.4 % 01/23/23 20:57 Neut # (Auto) 3.36 10^3/uL (1.8-7.7) 01/23/23 20:57 Lymph # (Auto) 2.3 10^3/uL (0.8-4.8) 01/23/23 20:57 [place] # (Auto) 0.7 10^3/uL (0.2-0.9) 01/23/23 20:57 Eos # (Auto) 0.7 10^3/uL (0.0-0.8) 01/23/23 20:57 Baso # (Auto) 0.0 10^3/uL (0.0-0.1) 01/23/23 20:57 Nucleated RBC % (auto) 0 % 01/23/23 20:57 Nucleated RBCs # 0.0 /100WBC 01/23/23 20:57 Sodium 135 mmol/L (136-145) L 01/23/23 20:57 Potassium 2.7 mmol/L (3.5-5.1) L* 01/23/23 20:57 Chloride 92 mmol/L (98-107) L 01/23/23 20:57 Carbon Dioxide 32 mmol/L (22-29) H 01/23/23 20:57 Anion Gap 13.7 (5-19) 01/23/23 20:57 BUN 10 mg/dL (6-20) 01/23/23 20:57 Creatinine 0.7 mg/dL (0.5-0.9) 01/23/23 20:57 GFR Calculation 91.8 mL/min (90-130) 01/23/23 20:57 Glucose 143 mg/dL (65-115) H 01/23/23 20:57 Calculated Osmolality 282 mOsm/kg (285-295) L 01/23/23 20:57 Calcium 8.9 mg/dL (8.5-10.5) 01/23/23 20:57 Total Bilirubin 0.3 mg/dL (0.15-1.2) 01/23/23 20:57 AST 42 U/L (0-32) H 01/23/23 20:57 ALT 32 U/L (0-33) 01/23/23 20:57 Alkaline Phosphatase 120 U/L (35-105) H 01/23/23 20:57 NT-Pro-B Natriuret Pep 36 pg/mL (0-125) 01/23/23 20:57 Total Protein 7.7 g/dL (6.6-8.7) 01/23/23 20:57 Albumin 3.1 g/dL (3.5-5.2) L 01/23/23 20:57 Globulin 4.6 g/dL (1.3-4.6) 01/23/23 20:57 All radiology interpretation(s) finalized by discharge EKG Data EKG 1: I personally reviewed and interpreted this EKG as follows: EKG Interpretation Date: 01/23/23 EKG interpretation time: 21:01 Interpretation: sinus tach hr [address] or t wave abnormalities qrs 97 qtc 394 Discharge Plan Discharge Patient Disposition: Home Clinical Impression: Pleural effusion, Hypokalemia Condition: Stable Prescriptions: New doxycycline hyclate 100 mg tablet 100 mg PO BID 10 Days Qty: 20 0RF potassium chloride 20 mEq packet 40 meq PO TID Qty: 20 0RF No Action (DME) compressor, for nebulizer Device See Rx Instructions .Route Qty: 1 0RF Rx Instructions: As directed albuterol sulfate 2.5 mg /3 mL (0.083 %) solution for nebulization 2.5 mg inhalation QID PRN (Reason: shortness of breath or wheezing) Qty: 75 1RF Renflexis 100 mg recon soln 100 mg IV DIRECTED albuterol sulfate [ProAir HFA] 90 mcg/actuation HFA aerosol inhaler 2 puff inhalation Q6H PRN (Reason: shortness of breath or wheezing) Qty: 6.7 2RF (DME) nebulizer accessories Kit See Rx Instructions .Route Qty: 1 0RF Rx Instructions: As directed potassium chloride 10 mEq capsule, extended release See Rx Instructions PO DAILY Qty: 120 2RF Rx Instructions: 20mEq-40mEq PO daily; venlafaxine [Effexor XR] 150 mg capsule,extended release 24hr 150 mg PO QAM Qty: 30 2RF metolazone 2.5 mg tablet 2.5 mg PO DAILY PRN (Reason: swelling) Qty: 30 0RF acetaminophen [Tylenol 8 Hour] 650 mg Tablet Extended Release 1,300 mg PO DAILY@0500 Hold Instructions: Resume on 02/15/21. Do not take additional acetaminophen in the same five-hour period as the prescribed [place]. Discharge Orders: Discharge ED (Routine); Ordered 01/23/23 Ordered By: Ursula Alonso Referrals: Michael Leger, FINISHED [employer] REPA[employer]ER-C [Primary Care Provider] - 1-3 days Discharge Diet: Advance as tolerated Discharge Activity: Resume usual activity Patient Instructions: Hypokalemia, Pleural Effusion (DC) Coding Level of Care Code ED Room Clerk for Nai Arceo
[2023-01-23 21:10] LABS: Basophils % 0.4 %; Eosinophils # 0.7 10^3/uL (0.0-0.8); Eosinophils % 10.4 %; Hematocrit 41.6 % (36-47); Lymphocytes # 2.3 10^3/uL (0.8-4.8); Lymphocytes % 32.3 %; Mean Corpuscular HGB Conc 32.7 g/dL (30-55); Mean Corpuscular Hemoglobin 28.3 pg (27-33); Mean Corpuscular Volume 86.7 fl (85-98); Mean Platelet Volume 9.5 fL (7.4-10.4); Monocytes # 0.7 10^3/uL (0.2-0.9); Monocytes % 9.4 %; Neutrophils # 3.36 10^3/uL (1.8-7.7); Neutrophils % 47.2 %; Nucleated Red Blood Cells % 0 %; Platelet Count 341 10^3/cmm (157-399); Red Cell Distribution Width 13.1 % (12.1-15.1); White Blood Count 7.12 10^3/uL (3.29-11.43)
[2023-01-23 21:30] LABS: Alanine Aminotransferase 32 U/L (0-33); Albumin Level 3.1 g/dL (3.5-5.2); Alkaline Phosphatase 120 U/L (35-105); Anion Gap 13.7 (5-19); Aspartate Amino Transferase 42 U/L (0-32); Blood Urea Nitrogen 10 mg/dL (6-20); Calcium 8.9 mg/dL (8.5-10.5); Carbon Dioxide 32 mmol/L (22-29); Chloride 92 mmol/L (98-107); Globulin 4.6 g/dL (1.3-4.6); Glomerular Filtration Rate 91.8 mL/min (90-130); Glucose 143 mg/dL (65-115); Osmolality Calculated 282 mOsm/kg (285-295); Sodium 135 mmol/L (136-145); Total Bilirubin 0.3 mg/dL (0.15-1.2); Total Protein 7.7 g/dL (6.6-8.7)
[2023-01-23 21:35] LABS: NT Pro B Type Natriuretic Pept 36 pg/mL (0-125); Potassium 2.7 mmol/L (3.5-5.1)
--- NOTE | 2023-01-23 21:35 | PC.NURSE ---
Dr Alonso notified of patient's critical lab value of potassium coming back.
[2023-01-23] MEDS: potassium chloride ER 20 mEq Tablet 60 MEQ PO (21:44)
[2023-01-23] MEDS: doxycycline 100 mg Tablet PO (22:13)
[2023-01-23 22:19] VITALS: BP 122/80; O2SAT 94
== END 2023-01-23 22:25 | disposition home or self-care (01) ==
PROVIDERS: Emergency Provider Emergency Medicine; PCP Nurse Practitioner
DX: J90 Pleural effusion, not elsewhere classified (principal); E87.6 Hypokalemia
CPT/HCPCS: 36415; 71045; 80053; 83880; 85025; 93005; 99285

== ENCOUNTER 2023-01-25 14:42 | Outpatient (CLI) | payer BC, MEDICAID, SELFPAY ==
--- NOTE | 2023-01-25 15:00 | CTR_ITS ---
PROCEDURE INFORMATION: Exam: CT Chest Without Contrast; Diagnostic Exam date and time: 01/25/2023 2:50 PM Age: 42 years old Clinical indication: Abnormal findings; Abnormal radiologic exam of lung or chest; Additional info: R91.8 - other nonspecific abnormal finding of lung field, 1. Patchy groundglass infiltrates in the mid and lower lung TECHNIQUE: Imaging protocol: Diagnostic computed tomography of the chest without contrast. Radiation optimization: All CT scans at this facility use at least one of these dose optimization techniques: automated exposure control; mA and/or kV adjustment per patient size (includes targeted exams where dose is matched to clinical indication); or iterative reconstruction. REPORTING DATA: Count of CT and Cardiac NM exams in prior 12 months: This patient has received 0 known CTs and 0 known cardiac nuclear medicine studies in the 12 months prior to the current study. COMPARISON: CT angio chest PE protcl [id number] 11/12/2020 5:41 PM RADIATION DOSE METRICS: Total DLP (mGy-cm): 737.46 FINDINGS: Thyroid: The partially imaged bilateral thyroid lobes are unremarkable. Lungs: Patchy pulmonary airspace opacities predominating in the anterior bilateral mid-upper lung zones. A new 15.1 mm noncalcified pulmonary nodule is noted in the anterolateral basilar segment of the left lower lobe (LOC 170). Bilateral posterior pulmonary partial passive atelectasis. Pleural spaces: No pneumothorax. Moderate bilateral dependent pleural effusions. Heart: No cardiomegaly. No pericardial effusion. Coronary arteries: No coronary artery calcifications. Lymph nodes: No enlarged lymph nodes. Vasculature: Unremarkable. No aortic aneurysm. Gallbladder and bile ducts: The gallbladder is surgically absent, with metallic clips in the gallbladder fossa. No extrahepatic biliary ductal dilatation or calculus. Spleen: The spleen is mildly enlarged measuring 15.6 cm transversely. Bones/joints: Small thoracic spine vertebral body marginal osteophytes. Soft tissues: Unremarkable. CT/CT chest wo con [id number] IMPRESSION: 1. Patchy pulmonary airspace opacities predominating in the anterior bilateral mid-upper lung zones. Pneumonitis is suspected. Clinical correlation is recommended. 2. Moderate bilateral dependent pleural effusions. 3. Noncalcified left lower lobe pulmonary nodule. Pulmonary neoplasia not excluded. Comparison with prior studies, if available, recommended. Three-month followup chest CT, PET/CT, or percutaneous needle biopsy recommended. (MacMahon, et al., Fleischner Society, 2017). 4. Prior cholecystectomy. 5. Mild splenomegaly.
== END 2023-01-25 14:43 | disposition home or self-care (01) ==
LOC: RAD 14:42
PROVIDERS: PCP Nurse Practitioner; Visit Provider Internal Medicine Rheumatology
DX: R91.8 Other nonspecific abnormal finding of lung field (principal); J90 Pleural effusion, not elsewhere classified; R93.89 Abnormal findings on diagnostic imaging of other specified body structures; R91.1 Solitary pulmonary nodule
CPT/HCPCS: 71250

== ENCOUNTER → 2023-02-14 10:00 | Outpatient (BNVA) | payer BC, SELFPAY | PROVIDERS: PCP Nurse Practitioner; Visit Provider Nurse Practitioner | DX: R73.9 Hyperglycemia, unspecified (principal) | CPT/HCPCS: 80053; 83036 ==

== ENCOUNTER 2023-03-13 11:51 | Outpatient (CLI) | payer BC, MEDICAID, SELFPAY ==
--- NOTE | 2023-03-13 12:00 | CTR_ITS ---
PROCEDURE INFORMATION: Exam: CT Chest Without Contrast; Diagnostic Exam date and time: 03/13/2023 12:04 PM Age: 42 years old Clinical indication: Shortness of breath; Patient HX: HX of pleural effusion; Additional info: F/u TECHNIQUE: Imaging protocol: Diagnostic computed tomography of the chest without contrast. Radiation optimization: All CT scans at this facility use at least one of these dose optimization techniques: automated exposure control; mA and/or kV adjustment per patient size (includes targeted exams where dose is matched to clinical indication); or iterative reconstruction. COMPARISON: 1. CT chest wo con [id number] 01/25/2023 2:[address] angio chest PE protcl [id number] 11/12/2020 5:41 PM RADIATION DOSE METRICS: Total DLP (mGy-cm): 708.07 FINDINGS: Lungs: Resolved anterolateral basal left lower lobe nodule and decreased patchy pulmonary airspace opacities with subtle minimal residual remaining. Few stable pulmonary nodules, index right middle lobe nodule measuring 6 mm on axial image 36 of series 3. Mild yjfz-hkuqrrn-ugki-right compressive atelectasis. Pleural spaces: Increased small to moderate left pleural effusion. Decreased small right pleural effusion. No pneumothorax. Heart: Unremarkable. No cardiomegaly. No pericardial effusion. Coronary arteries: No coronary artery calcification. Lymph nodes: No enlarged lymph nodes. Vasculature: Unremarkable. No aortic aneurysm. Gallbladder and bile ducts: Prior cholecystectomy. Spleen: Enlarged spleen measures 15.7 cm. Bones/joints: No acute fracture. Mild degenerative changes along the spine. Stable nonaggressive sclerotic focus at the T10 vertebral body. Soft tissues: Unremarkable. CT/CT chest wo con [id number] IMPRESSION: 1. Improved lung findings with resolved left lower lobe nodule. 2. Decreased right and increased left pleural effusions. 3. Splenomegaly.
== END 2023-03-13 11:52 | disposition home or self-care (01) ==
LOC: RAD 11:51
PROVIDERS: PCP Nurse Practitioner; Visit Provider Internal Medicine Pulmonary Disease
DX: J90 Pleural effusion, not elsewhere classified (principal)
CPT/HCPCS: 71250

== ENCOUNTER → 2023-03-21 13:37 | Outpatient (BNVA) | payer MEDICARE, MEDICAID, SELFPAY | PROVIDERS: PCP Nurse Practitioner; Visit Provider Internal Medicine Pulmonary Disease | DX: R93.89 Abnormal findings on diagnostic imaging of other specified body structures (principal); M05.79 Rheumatoid arthritis with rheumatoid factor of multiple sites without organ or systems involvement; J22 Unspecified acute lower respiratory infection; F17.210 Nicotine dependence, cigarettes, uncomplicated; R06.02 Shortness of breath; Z79.899 Other long term (current) drug therapy | CPT/HCPCS: 82785; 86003; 99214 ==

== ENCOUNTER → 2023-04-05 10:41 | Outpatient (BNVA) | payer BC, MEDICAID, SELFPAY | PROVIDERS: PCP Nurse Practitioner; Visit Provider Internal Medicine Rheumatology | DX: M05.79 Rheumatoid arthritis with rheumatoid factor of multiple sites without organ or systems involvement (principal); Z79.899 Other long term (current) drug therapy | CPT/HCPCS: 82784 ==

== ENCOUNTER 2023-04-17 09:19 | Outpatient (CLI) | payer BC, MEDICAID, SELFPAY ==
[2023-04-17 10:03] VITALS: PULSE 91; RESP 20; O2SAT 97
[2023-04-17] MEDS: albuterol 2.5 mg/3 mL Neb INHALATION (10:03)
[2023-04-17 10:07] VITALS: PULSE 93
== END 2023-04-17 09:20 | disposition home or self-care (01) ==
PROVIDERS: PCP Nurse Practitioner; Visit Provider Internal Medicine Pulmonary Disease
DX: R06.02 Shortness of breath (principal)
CPT/HCPCS: 94060; 94618; 94726; 94729; J7613

== ENCOUNTER 2023-06-04 21:52 | Observation (INO) | payer BC, MEDICAID, SELFPAY ==
[2023-06-04 21:52] VITALS: BP 182/116; PULSE 93; RESP 18; TEMP 36.3; O2SAT 100
[2023-06-04 22:23] LABS: Basophils # 0.1 10^3/uL (0.0-0.1); Basophils % 0.6 %; Eosinophils # 0.8 10^3/uL (0.0-0.8); Hematocrit 39.3 % (36-47); Lymphocytes # 3.1 10^3/uL (0.8-4.8); Lymphocytes % 28.7 %; Mean Corpuscular HGB Conc 31.3 g/dL (30-55); Mean Corpuscular Volume 83.1 fl (85-98); Mean Platelet Volume 9.8 fL (7.4-10.4); Monocytes # 0.8 10^3/uL (0.2-0.9); Monocytes % 7.7 %; Neutrophils # 5.93 10^3/uL (1.8-7.7); Neutrophils % 55.6 %; Nucleated Red Blood Cells % 0 %; Platelet Count 356 10^3/cmm (157-399); Red Blood Count 4.73 10^6/uL (3.85-5.65); White Blood Count 10.66 10^3/uL (3.29-11.43)
[2023-06-04 22:31] LABS: HCG, Serum Qual Negative (Negative)
--- NOTE | 2023-06-04 22:32 | CTR_ITS ---
PROCEDURE INFORMATION: Exam: CT Abdomen And Pelvis With Contrast Exam date and time: 06/04/2023 10:57 PM Age: 42 years old Clinical indication: Abdominal pain; Prior surgery; Surgery date: 6+ months; Surgery type: Gb, hyst, ; Additional info: Rlq pain TECHNIQUE: Imaging protocol: Computed tomography of the abdomen and pelvis with contrast. Radiation optimization: All CT scans at this facility use at least one of these dose optimization techniques: automated exposure control; mA and/or kV adjustment per patient size (includes targeted exams where dose is matched to clinical indication); or iterative reconstruction. Contrast material: OMNI 350; Contrast volume: 100 ml; Contrast route: INTRAVENOUS (IV); COMPARISON: CT abdomen pelvis w con* [id number] 02/10/2021 9:22 AM RADIATION DOSE METRICS: Total DLP (mGy-cm): 1306.1 FINDINGS: Lungs: There is a 5 mm pulmonary nodule in the right middle lobe (series 3, image 1). Pleural spaces: Small bilateral pleural effusions. Liver: Normal. No mass. Gallbladder and bile ducts: The gallbladder is absent. Pancreas: Normal. No ductal dilation. Spleen: Normal. No splenomegaly. Adrenal glands: Normal. No mass. Kidneys and ureters: Normal. No hydronephrosis. Stomach and bowel: Unremarkable. No obstruction. No mucosal thickening. Appendix: The appendix is normal in size but there is a wheo-aj-rxuritxk amount periappendiceal fat stranding. No free fluid or abscess. Intraperitoneal space: See Appendix finding. Vasculature: Unremarkable. No abdominal aortic aneurysm. Lymph nodes: Unremarkable. No enlarged lymph nodes. Urinary bladder: Unremarkable as visualized. Reproductive: Unremarkable as visualized. Bones/joints: Unremarkable. No acute fracture. Soft tissues: Unremarkable. CT/CT abdomen pelvis w con* [id number] IMPRESSION: 1. The appendix is normal in size but there is a naeb-gh-kenbranp amount periappendiceal fat stranding. No free fluid or abscess. An early uncomplicated appendicitis can not be excluded. 2. There is a 5 mm pulmonary nodule in the right middle lobe (series 3, image 1). For patients at low risk (minimal or absent history of smoking and of other known risk factors), no routine follow-up is indicated. For patients at high risk (history of smoking or of other known risk factors), consider optional CT Chest at 12 months. (Reference: Malika) REFERENCES: Malika Gutierrez, et al. Guidelines for Management of Incidental Pulmonary Nodules Detected on CT Images: From the Fleischner Society 2017. Radiology. 2017;284(1):228-243.
--- NOTE | 2023-06-04 22:37 | ED_ITS ---
Documented by User: VICTOR M Howe 06/05/23 00:41 HPI - Abdominal Pain 2 General: Chief Complaint: Abdominal Pain Stated Complaint: lower right abd pain 2 days Time Seen by Provider: 06/04/23 22:25 Source: patient Mode of arrival: ambulatory Limitations: no limitations History of Present Illness: Patient is a 42-year-old female presents to the emergency department complaining of right lower quadrant pain onset 2 days. Patient notes sudden onset of the pain and states she is worried that it is appendicitis. She notes some associated nausea but denies any fevers or other symptoms at this time. She denies history of kidney stones or any urinary symptoms. She states the pain is stabbing and at rest it is a 5/10 but with movement it is a 10/10. The pain does not move and is localized around the right lower quadrant. She has been taking ibuprofen for her pain with no improvement. She does note that she currently does not feel nauseous and that this was primarily yesterday. She does note the nausea preceded the pain. She does state that she has had her gallbladder removed. MD elicited complaint: abdominal pain Pertinent past history: none Onset (ago): day(s) (2) Pain Consistency: constant Location: RLQ Severity: severe Pain scale (0-10): 10 Quality: stabbing Radiation: none Migration to: no migration Exacerbating factors: movement Associated Symptoms: Reports nausea; Denies change in bowel habits, chills, constipation, diarrhea, dysuria, fever(s), hematemesis and vomiting Treatments prior to arrival: NSAIDs Review of Systems 2 General: Reports: 10 or more systems reviewed and unremarkable except in HPI and below Const: Denies: fever(s), chills, change in appetite, change in weight or diaphoresis ENMT: Denies: throat pain or hoarseness Card: Denies: chest pain, palpitations or lightheadedness Resp: Denies: dyspnea, productive cough or wheezing GI: Reports: abdominal pain and nausea; Denies: vomiting, hematemesis, diarrhea, constipation or change in bowel habits : Denies: flank pain, difficulty voiding, dysuria, urinary frequency or urinary urgency Musc: Denies: neck pain or back pain Skin/Breast: Denies: rash or new lesions Neuro: Denies: headache(s) or dizziness PFS ED 2 PFSH: Medical History Obesity, morbid, BMI 40.0-49.9 Metabolic syndrome FH: cholecystectomy 02/15/21 No pertinent past medical history neghx: htn,dm,thyroid,dvt/pe PCP: Michael Leger Rheumatoid arthritis Atrial fibrillation No episodes since I started metoprolol Edema Anxiety and depression Surgical History History of total abdominal hysterectomy (~10/09/22) PAPA, bilateral salpingectomy performed by Dr. Mcneill at [facility] in [place], [place] History of cholecystectomy (~01/2021) H/O: x 3 Family History Father Diabetes Hypertension CAD (coronary artery disease) Lung disease Mother Hypertension Rheumatoid arthritis CAD (coronary artery disease) Lung disease Sister CAD (coronary artery disease) Hypertension Lung disease Stroke Colon cancer dx'd at age 45 Family/Other Breast cancer paternal Grandmother Dementia Other Heart disease Hypercholesteremia Liver disease Migraines Denies family history of Ovarian cancer Clotting disorder Chronic kidney disease (CKD) Suicide Anesthesia complication Bleeding disorder Uterine cancer Social History Smoking and tobacco/nicotine status: current every day tobacco/nicotine user cigarettes Packs smoked per day: 1.5 Years cigarettes smoked: 20 [ Other cigarette details: Started at 22] Quit status (tobacco/nicotine): has quit using Female Reproductive History: Spontaneous abortions: No Physical Exam 2 Const: COMMON NORMALS: patient oriented x3, no limitations, healthy appearing, alert and well nourished GENERAL APPEARANCE: cooperative and in distress (From pain, clutching right lower quadrant) NUTRITIONAL APPEARANCE: obese morbidly obese ORIENTATION/CONSCIOUSNESS: Yes awake HENMT: COMMON NORMALS: normocephalic, atraumatic, hearing grossly normal bilaterally, external ears normal, Normal external nose present, Normal nasal mucous membranes and turbinates present and moist oral mucous membranes HEAD & SCALP: normocephalic and atraumatic NOSE: Normal external nose present and Normal nasal mucous membranes and turbinates present EXTERNAL EAR: Yes external ears normal Eye: COMMON NORMALS: Equal, round and reactive pupils present, EOMs intact bilaterally, conjunctivae normal and normal visual bentley by confrontation C ONJUNCTIVA: Yes conjunctivae normal PUPIL: Yes Equal, round and reactive pupils present Neck/C-Spine: COMMON NORMALS: full ROM, supple, no meningeal signs and no JVD Resp: COMMON NORMALS: normal respiratory effort, No retractions, No use of accessory muscles and clear to auscultation bilaterally AUSCULTATION: clear to auscultation bilaterally, no crackles, no rales, no rhonchi and no wheezes Cardio: COMMON NORMALS: no JVD, regular rate, regular rhythm, S1 normal heart sound present, S2 normal heart sound present, No gallops present (Cardio), No clicks present (Cardio), No murmurs present (Cardio), No rub (Cardio) and Peripheral pulses 2+ throughout RATE: regular rate RHYTHM: regular rhythm HEART SOUNDS: S1 normal heart sound present and S2 normal heart sound present PERIPHERAL PULSES: Peripheral pulses 2+ throughout GI: COMMON NORMALS: Normal to inspection, nondistended, normoactive bowel sounds present, No hepatosplenomegaly present and no masses INSPECTION: Yes central obesity AUSCULTATION: Yes normoactive bowel sounds PALPATION: Yes Tenderness to palpation present (GI) Details: RLQ, No Guarding due to palpation present (GI), No Rigid due to palpation and Yes No hepatosplenomegaly present RECTAL EXAM: deferred OTHER: Abdomen is morbidly obese, making special testing of the appendix unreliable : COMMON NORMALS: Yes no CVA tenderness BLADDER/KIDNEY EXAM: Yes no CVA tenderness Back/Pelvis: COMMON NORMALS: no CVA tenderness Extremity: COMMON NORMALS: normal to inspection and full ROM Neuro: COMMON NORMALS: patient oriented x3, moves all extremities, no focal motor deficits and no sensory deficits noted SENSORIUM/ORIENTATION: Yes alert MENINGEAL SIGNS: Yes no meningeal signs Psych: COMMON NORMALS: mental status grossly normal, cooperative and speech normal SPEECH: Yes normal speech Skin: COMMON NORMALS: no rashes or lesions noted GENERAL SKIN EXAM: no rashes or lesions noted Course 2 Vital Signs: Vital signs: Vital Signs Temperature 97.4 F L 06/05/23 04:57 Pulse Rate 87 06/05/23 04:57 Respiratory Rate 14 06/05/23 04:57 Blood Pressure 137/79 06/05/23 04:57 Pulse Oximetry 91 06/05/23 04:57 Oxygen Delivery Me thod Room Air 06/05/23 04:57 MDM - Abdominal Pain Lab Data 06/05/23 04:37 06/05/23 04:37 Labs/Radiology: Radiology Impressions Abdomen/Pelvis CT 06/04/23 22:32 IMPRESSION: 1. The appendix is normal in size but there is a cxuq-qm-qgyljxse amount periappendiceal fat stranding. No free fluid or abscess. An early uncomplicated appendicitis can not be excluded. 2. There is a 5 mm pulmonary nodule in the right middle lobe (series 3, image 1). For patients at low risk (minimal or absent history of smoking and of other known risk factors), no routine follow-up is indicated. For patients at high risk (history of smoking or of other known risk factors), consider optional CT Chest at 12 months. (Reference: Malika) REFERENCES: Malika Gutierrez, et al. Guidelines for Management of Incidental Pulmonary Nodules Detected on CT Images: From the Fleischner Society 2017. Radiology. 2017;284(1):228-243. Laboratory Results WBC 10.66 10^3/uL (3.29-11.43) 06/04/23 22:16 RBC 4.73 10^6/uL (3.85-5.65) 06/04/23 22:16 Hgb 12.30 g/dL (11.27-16.99) 06/04/23 22:16 Hct 39.3 % (36-47) 06/04/23 22:16 MCV 83.1 fl (85-98) L 06/04/23 22:16 MCH 26.0 pg (27-33) L 06/04/23 22:16 MCHC 31.3 g/dL (30-55) 06/04/23 22:16 RDW 15.0 % (12.1-15.1) 06/04/23 22:16 Plt Count 356 10^3/cmm (157-399) 06/04/23 22:16 MPV 9.8 fL (7.4-10.4) 06/04/23 22:16 Neut % (Auto) 55.6 % 06/04/23 22:16 Lymph % (Auto) 28.7 % 06/04/23 22:16 [place] % (Auto) 7.7 % 06/04/23 22:16 Eos % (Auto) 7.0 % 06/04/23 22:16 Baso % (Auto) 0.6 % 06/04/23 22:16 Neut # (Auto) 5.93 10^3/uL (1.8-7.7) 06/04/23 22:16 Lymph # (Auto) 3.1 10^3/uL (0.8-4.8) 06/04/23 22:16 [place] # (Auto) 0.8 10^3/uL (0.2-0.9) 06/04/23 22:16 Eos # (Auto) 0.8 10^3/uL (0.0-0.8) 06/04/23 22:16 Baso # (Auto) 0.1 10^3/uL (0.0-0.1) 06/04/23 22:16 Nucleated RBC % (auto) 0 % 06/04/23 22:16 Nucleated RBCs # 0.0 /100WBC 06/04/23 22:16 PT 13.20 SECONDS (12.1-14.9) 06/04/23 22:16 INR 0.97 (0.8-1.2) 06/04/23 22:16 Sodium 139 mmol/L (136-145) 06/04/23 22:16 Potassium 3.9 mmol/L (3.5-5.1) 06/04/23 22:16 Chloride 105 mmol/L (98-107) 06/04/23 22:16 Carbon Dioxide 24 mmol/L (22-29) 06/04/23 22:16 Anion Gap 13.9 (5-19) 06/04/23 22:16 BUN 6 mg/dL (6-20) 06/04/23 22:16 Creatinine 0.5 mg/dL (0.5-0.9) 06/04/23 22:16 GFR Calculation 135.3 mL/min (90-130) H 06/04/23 22:16 Glucose 81 mg/dL (65-115) 06/04/23 22:16 Calculated Osmolality 285 mOsm/kg (285-295) 06/04/23 22:16 Calcium 8.8 mg/dL (8.5-10.5) 06/04/23 22:16 Total Bilirubin 0.2 mg/dL (0.15-1.2) 06/04/23 22:16 AST 11 U/L (0-32) 06/04/23 22:16 ALT 12 U/L (0-33) 06/04/23 22:16 Alkaline Phosphatase 135 U/L (35-105) H 06/04/23 22:16 Total Protein 7.5 g/dL (6.6-8.7) 06/04/23 22:16 Albumin 3.4 g/dL (3.5-5.2) L 06/04/23 22:16 Globulin 4.1 g/dL (1.3-4.6) 06/04/23 22:16 Lipase 13 U/L (13-60) 06/04/23 22:16 HCG, Qual Negative (Negative) 06/04/23 22:16 Urine Color Colorless (Yellow) 06/04/23 22:40 Urine Appearance Clear (CLEAR) 06/04/23 22:40 Urine pH 6.5 (5-7) 06/04/23 22:40 Ur Specific [place] 1.005 (1.005-1.030) 06/04/23 22:40 Urine Protein Neg (Negative) 06/04/23 22:40 Urine Glucose (UA) Norm (Normal) 06/04/23 22:40 Urine Ketones Negative (Negative) 06/04/23 22:40 Urine Blood Neg (Negative) 06/04/23 22:40 Urine Nitrate Negative (Negative) 06/04/23 22:40 Urine Bilirubin Neg (Negative) 06/04/23 22:40 Urine Urobilinogen Neg mg/dL (Negative) 06/04/23 22:40 Ur Leukocyte Esterase Negative (Negative) 06/04/23 22:40 All radiology interpretation(s) finalized by discharge Discharge Plan Discharge Patient Disposition: Placed in Observation Admit Provider: Wale Nuñez Clinical Impression: Appendicitis Qualifiers: Appendicitis type: unspecified Qualified Code(s): K37 - Unspecified appendicitis Coding Level of Care Code ED Health Informatics Instructor for g Fwd Documented by User: Hank Reza MD 06/05/23 05:14 HPI - Abdominal Pain 2 General: Chief Complaint: Abdominal Pain Stated Complaint: lower right abd pain 2 days Time Seen by Provider: 06/04/23 22:25 PFS ED 2 PFSH: Medical History Obesity, morbid, BMI 40.0-49.9 Metabolic syndrome FH: cholecystectomy 02/15/21 No pertinent past medical history neghx: htn,dm,thyroid,dvt/pe PCP: Michael Leger Rheumatoid arthritis Atrial fibrillation No episodes since I started metoprolol Edema Anxiety and depression Surgical History History of total abdominal hysterectomy (~10/09/22) PAPA, bilateral salpingectomy performed by Dr. Mcneill at [facility] in [place], [place] History of cholecystectomy (~01/2021) H/O: x 3 Family History Father Diabetes Hypertension CAD (coronary artery disease) Lung disease Mother Hypertension Rheumatoid arthritis CAD (coronary artery disease) Lung disease Sister CAD (coronary artery disease) Hypertension Lung disease Stroke Colon cancer dx'd at age 45 Family/Other Breast cancer paternal Grandmother Dementia Other Heart disease Hypercholesteremia Liver disease Migraines Denies family history of Ovarian cancer Clotting disorder Chronic kidney disease (CKD) Suicide Anesthesia complication Bleeding disorder Uterine cancer Social History Smoking and tobacco/nicotine status: current every day tobacco/nicotine user cigarettes Packs smoked per day: 1.5 Years cigarettes smoked: 20 [ Other cigarette details: Started at 22] Quit status (tobacco/nicotine): has quit using Course 2 Vital Signs: Vital signs: Vital Signs Temperature 97.4 F L 06/05/23 04:57 Pulse Rate 87 06/05/23 04:57 Respiratory Rate 14 06/05/23 04:57 Blood Pressure 137/79 06/05/23 04:57 Pulse Oximetry 91 06/05/23 04:57 Oxygen Delivery Me thod Room Air 06/05/23 04:57 MDM - Abdominal Pain Medical Decision Making I discussed the patient's history of present illness, physical exam findings, pertinent labs, pertinent radiographic exams and plan of care with the midlevel provider. I did personally have a ekuw-hb-[id number] evaluation and discussion with the patient regarding the plan of care and the need for further admission/transfer. Patient does have a history of immunosuppression therapy with monoclonal antibody I suspect that this may be contributing to her normal white blood cell count with the resultant concern for early acute appendicitis given the periappendiceal fat stranding seen on the CT abdomen pelvis. Medical Records I reviewed the patient's medical records. Lab Data I reviewed the patient's lab results. 06/05/23 04:37 06/05/23 04:37 Labs/Radiology: Radiology Impressions Abdomen/Pelvis CT 06/04/23 22:32 IMPRESSION: 1. The appendix is normal in size but there is a loib-nx-jqpudefp amount periappendiceal fat stranding. No free fluid or abscess. An early uncomplicated appendicitis can not be excluded. 2. There is a 5 mm pulmonary nodule in the right middle lobe (series 3, image 1). For patients at low risk (minimal or absent history of smoking and of other known risk factors), no routine follow-up is indicated. For patients at high risk (history of smoking or of other known risk factors), consider optional CT Chest at 12 months. (Reference: Malika) REFERENCES: Malika Gutierrez, et al. Guidelines for Management of Incidental Pulmonary Nodules Detected on CT Images: From the Fleischner Society 2017. Radiology. 2017;284(1):228-243. Laboratory Results WBC 10.66 10^3/uL (3.29-11.43) 06/04/23 22:16 RBC 4.73 10^6/uL (3.85-5.65) 06/04/23 22:16 Hgb 12.30 g/dL (11.27-16.99) 06/04/23 22:16 Hct 39.3 % (36-47) 06/04/23 22:16 MCV 83.1 fl (85-98) L 06/04/23 22:16 MCH 26.0 pg (27-33) L 06/04/23 22:16 MCHC 31.3 g/dL (30-55) 06/04/23 22:16 RDW 15.0 % (12.1-15.1) 06/04/23 22:16 Plt Count 356 10^3/cmm (157-399) 06/04/23 22:16 MPV 9.8 fL (7.4-10.4) 06/04/23 22:16 Neut % (Auto) 55.6 % 06/04/23 22:16 Lymph % (Auto) 28.7 % 06/04/23 22:16 [place] % (Auto) 7.7 % 06/04/23 22:16 Eos % (Auto) 7.0 % 06/04/23 22:16 Baso % (Auto) 0.6 % 06/04/23 22:16 Neut # (Auto) 5.93 10^3/uL (1.8-7.7) 06/04/23 22:16 Lymph # (Auto) 3.1 10^3/uL (0.8-4.8) 06/04/23 22:16 [place] # (Auto) 0.8 10^3/uL (0.2-0.9) 06/04/23 22:16 Eos # (Auto) 0.8 10^3/uL (0.0-0.8) 06/04/23 22:16 Baso # (Auto) 0.1 10^3/uL (0.0-0.1) 06/04/23 22:16 Nucleated RBC % (auto) 0 % 06/04/23 22:16 Nucleated RBCs # 0.0 /100WBC 06/04/23 22:16 PT 13.20 SECONDS (12.1-14.9) 06/04/23 22:16 INR 0.97 (0.8-1.2) 06/04/23 22:16 Sodium 139 mmol/L (136-145) 06/04/23 22:16 Potassium 3.9 mmol/L (3.5-5.1) 06/04/23 22:16 Chloride 105 mmol/L (98-107) 06/04/23 22:16 Carbon Dioxide 24 mmol/L (22-29) 06/04/23 22:16 Anion Gap 13.9 (5-19) 06/04/23 22:16 BUN 6 mg/dL (6-20) 06/04/23 22:16 Creatinine 0.5 mg/dL (0.5-0.9) 06/04/23 22:16 GFR Calculation 135.3 mL/min (90-130) H 06/04/23 22:16 Glucose 81 mg/dL (65-115) 06/04/23 22:16 Calculated Osmolality 285 mOsm/kg (285-295) 06/04/23 22:16 Calcium 8.8 mg/dL (8.5-10.5) 06/04/23 22:16 Total Bilirubin 0.2 mg/dL (0.15-1.2) 06/04/23 22:16 AST 11 U/L (0-32) 06/04/23 22:16 ALT 12 U/L (0-33) 06/04/23 22:16 Alkaline Phosphatase 135 U/L (35-105) H 06/04/23 22:16 Total Protein 7.5 g/dL (6.6-8.7) 06/04/23 22:16 Albumin 3.4 g/dL (3.5-5.2) L 06/04/23 22:16 Globulin 4.1 g/dL (1.3-4.6) 06/04/23 22:16 Lipase 13 U/L (13-60) 06/04/23 22:16 HCG, Qual Negative (Negative) 06/04/23 22:16 Urine Color Colorless (Yellow) 06/04/23 22:40 Urine Appearance Clear (CLEAR) 06/04/23 22:40 Urine pH 6.5 (5-7) 06/04/23 22:40 Ur Specific [place] 1.005 (1.005-1.030) 06/04/23 22:40 Urine Protein Neg (Negative) 06/04/23 22:40 Urine Glucose (UA) Norm (Normal) 06/04/23 22:40 Urine Ketones Negative (Negative) 06/04/23 22:40 Urine Blood Neg (Negative) 06/04/23 22:40 Urine Nitrate Negative (Negative) 06/04/23 22:40 Urine Bilirubin Neg (Negative) 06/04/23 22:40 Urine Urobilinogen Neg mg/dL (Negative) 06/04/23 22:40 Ur Leukocyte Esterase Negative (Negative) 06/04/23 22:40 Discharge Plan Discharge Patient Disposition: Placed in Observation Admit Provider: Nuñez,Wale Clinical Impression: Appendicitis Qualifiers: Appendicitis type: unspecified Qualified Code(s): K37 - Unspecified appendicitis Coding Level of Care Code ED Health Informatics Instructor for nAandg Fwd Documented by User: Michael Valerio DO 06/05/23 06:34 HPI - Abdominal Pain 2 General: Chief Complaint: Abdominal Pain Stated Complaint: lower right abd pain 2 days Time Seen by Provider: 06/04/23 22:25 PFSH ED 2 PFSH: Medical History Obesity, morbid, BMI 40.0-49.9 Metabolic syndrome FH: cholecystectomy 02/15/21 No pertinent past medical history neghx: htn,dm,thyroid,dvt/pe PCP: Michael Leger Rheumatoid arthritis Atrial fibrillation No episodes since I started metoprolol Edema Anxiety and depression Surgical History History of total abdominal hysterectomy (~10/09/22) PAPA, bilateral salpingectomy performed by Dr. Mcneill at [facility] in [place], [place] History of cholecystectomy (~01/2021) H/O: x 3 Family History Father Diabetes Hypertension CAD (coronary artery disease) Lung disease Mother Hypertension Rheumatoid arthritis CAD (coronary artery disease) Lung disease Sister CAD (coronary artery disease) Hypertension Lung disease Stroke Colon cancer dx'd at age 45 Family/Other Breast cancer paternal Grandmother Dementia Other Heart disease Hypercholesteremia Liver disease Migraines Denies family history of Ovarian cancer Clotting disorder Chronic kidney disease (CKD) Suicide Anesthesia complication Bleeding disorder Uterine cancer Social History Smoking and tobacco/nicotine status: current every day tobacco/nicotine user cigarettes Packs smoked per day: 1.5 Years cigarettes smoked: 20 [ Other cigarette details: Started at 22] Quit status (tobacco/nicotine): has quit using Course 2 Vital Signs: Vital signs: Vital Signs Temperature 97.4 F L 06/05/23 04:57 Pulse Rate 87 06/05/23 04:57 Respiratory Rate 14 06/05/23 04:57 Blood Pressure 137/79 06/05/23 04:57 Pulse Oximetry 91 06/05/23 04:57 Oxygen Delivery Me thod Room Air 06/05/23 04:57 MDM - Abdominal Pain Medical Decision Making I discussed the patient's history of present illness, physical exam findings, pertinent labs, pertinent radiographic exams and plan of care with the midlevel provider. I did personally have a mwtg-lh-dbfi evaluation and discussion with the patient regarding the plan of care and the need for further admission/transfer. Patient does have a history of immunosuppression therapy with monoclonal antibody I suspect that this may be contributing to her normal white blood cell count with the resultant concern for early acute appendicitis given the periappendiceal fat stranding seen on the CT abdomen pelvis. Chart reviewed. Patient placed on observation for Dr. Nuñez for surgical consultation Lab Data 06/05/23 04:37 06/05/23 04:37 Labs/Radiology: Radiology Impressions Abdomen/Pelvis CT 06/04/23 22:32 IMPRESSION: 1. The appendix is normal in size but there is a ppyl-nl-zizmmszp amount periappendiceal fat stranding. No free fluid or abscess. An early uncomplicated appendicitis can not be excluded. 2. There is a 5 mm pulmonary nodule in the right middle lobe (series 3, image 1). For patients at low risk (minimal or absent history of smoking and of other known risk factors), no routine follow-up is indicated. For patients at high risk (history of smoking or of other known risk factors), consider optional CT Chest at 12 months. (Reference: Malika) REFERENCES: Malika H, et al. Guidelines for Management of Incidental Pulmonary Nodules Detected on CT Images: From the Fleischner Society 2017. Radiology. 2017;284(1):228-243. Laboratory Results WBC 10.66 10^3/uL (3.29-11.43) 06/04/23 22:16 RBC 4.73 10^6/uL (3.85-5.65) 06/04/23 22:16 Hgb 12.30 g/dL (11.27-16.99) 06/04/23 22:16 Hct 39.3 % (36-47) 06/04/23 22:16 MCV 83.1 fl (85-98) L 06/04/23 22:16 MCH 26.0 pg (27-33) L 06/04/23 22:16 MCHC 31.3 g/dL (30-55) 06/04/23 22:16 RDW 15.0 % (12.1-15.1) 06/04/23 22:16 Plt Count 356 10^3/cmm (157-399) 06/04/23 22:16 MPV 9.8 fL (7.4-10.4) 06/04/23 22:16 Neut % (Auto) 55.6 % 06/04/23 22:16 Lymph % (Auto) 28.7 % 06/04/23 22:16 [place] % (Auto) 7.7 % 06/04/23 22:16 Eos % (Auto) 7.0 % 06/04/23 22:16 Baso % (Auto) 0.6 % 06/04/23 22:16 Neut # (Auto) 5.93 10^3/uL (1.8-7.7) 06/04/23 22:16 Lymph # (Auto) 3.1 10^3/uL (0.8-4.8) 06/04/23 22:16 [place] # (Auto) 0.8 10^3/uL (0.2-0.9) 06/04/23 22:16 Eos # (Auto) 0.8 10^3/uL (0.0-0.8) 06/04/23 22:16 Baso # (Auto) 0.1 10^3/uL (0.0-0.1) 06/04/23 22:16 Nucleated RBC % (auto) 0 % 06/04/23 22:16 Nucleated RBCs # 0.0 /100WBC 06/04/23 22:16 PT 13.20 SECONDS (12.1-14.9) 06/04/23 22:16 INR 0.97 (0.8-1.2) 06/04/23 22:16 Sodium 139 mmol/L (136-145) 06/04/23 22:16 Potassium 3.9 mmol/L (3.5-5.1) 06/04/23 22:16 Chloride 105 mmol/L (98-107) 06/04/23 22:16 Carbon Dioxide 24 mmol/L (22-29) 06/04/23 22:16 Anion Gap 13.9 (5-19) 06/04/23 22:16 BUN 6 mg/dL (6-20) 06/04/23 22:16 Creatinine 0.5 mg/dL (0.5-0.9) 06/04/23 22:16 GFR Calculation 135.3 mL/min (90-130) H 06/04/23 22:16 Glucose 81 mg/dL (65-115) 06/04/23 22:16 Calculated Osmolality 285 mOsm/kg (285-295) 06/04/23 22:16 Calcium 8.8 mg/dL (8.5-10.5) 06/04/23 22:16 Total Bilirubin 0.2 mg/dL (0.15-1.2) 06/04/23 22:16 AST 11 U/L (0-32) 06/04/23 22:16 ALT 12 U/L (0-33) 06/04/23 22:16 Alkaline Phosphatase 135 U/L (35-105) H 06/04/23 22:16 Total Protein 7.5 g/dL (6.6-8.7) 06/04/23 22:16 Albumin 3.4 g/dL (3.5-5.2) L 06/04/23 22:16 Globulin 4.1 g/dL (1.3-4.6) 06/04/23 22:16 Lipase 13 U/L (13-60) 06/04/23 22:16 HCG, Qual Negative (Negative) 06/04/23 22:16 Urine Color Colorless (Yellow) 06/04/23 22:40 Urine Appearance Clear (CLEAR) 06/04/23 22:40 Urine pH 6.5 (5-7) 06/04/23 22:40 Ur Specific [place] 1.005 (1.005-1.030) 06/04/23 22:40 Urine Protein Neg (Negative) 06/04/23 22:40 Urine Glucose (UA) Norm (Normal) 06/04/23 22:40 Urine Ketones Negative (Negative) 06/04/23 22:40 Urine Blood Neg (Negative) 06/04/23 22:40 Urine Nitrate Negative (Negative) 06/04/23 22:40 Urine Bilirubin Neg (Negative) 06/04/23 22:40 Urine Urobilinogen Neg mg/dL (Negative) 06/04/23 22:40 Ur Leukocyte Esterase Negative (Negative) 06/04/23 22:40 Discharge Plan Discharge Patient Disposition: Placed in Observation Admit Provider: Wale Nuñez Clinical Impression: Appendicitis Qualifiers: Appendicitis type: unspecified Qualified Code(s): K37 - Unspecified appendicitis Coding Level of Care Code ED Health Informatics Instructor for Nai Arceo
[2023-06-04 22:38] LABS: Alanine Aminotransferase 12 U/L (0-33); Albumin Level 3.4 g/dL (3.5-5.2); Alkaline Phosphatase 135 U/L (35-105); Anion Gap 13.9 (5-19); Aspartate Amino Transferase 11 U/L (0-32); Blood Urea Nitrogen 6 mg/dL (6-20); Calcium 8.8 mg/dL (8.5-10.5); Carbon Dioxide 24 mmol/L (22-29); Chloride 105 mmol/L (98-107); Creatinine Clr Calc Pharmacy 237.8409; Globulin 4.1 g/dL (1.3-4.6); Glomerular Filtration Rate 135.3 mL/min (90-130); Glucose 81 mg/dL (65-115); Lipase 13 U/L (13-60); Osmolality Calculated 285 mOsm/kg (285-295); Potassium 3.9 mmol/L (3.5-5.1); Sodium 139 mmol/L (136-145); Total Bilirubin 0.2 mg/dL (0.15-1.2); Total Protein 7.5 g/dL (6.6-8.7)
[2023-06-04 22:42] VITALS: BP 146/81; PULSE 90; RESP 16; O2SAT 99
[2023-06-04 22:46] LABS: Add Urine Microscopic? NO; Charge for UA Resulting for Rev
[2023-06-04 22:51] LABS: Urine Appearance Clear (CLEAR); Urine Color Colorless (Yellow)
[2023-06-04 22:52] LABS: Bilirubin Urine Neg (Negative); Blood Urine Neg (Negative); Glucose Urine UA Norm (Normal); Ketones Urine Negative (Negative); Leukocyte Esterase Urine Negative (Negative); Nitrate Urine Negative (Negative); Protein Urine Neg (Negative); Specific Gravity, Urine 1.005 (1.005-1.030); Urobilinogen Urine Neg (Negative); pH Urine 6.5 (5-7)
[2023-06-04] MEDS: iohexol 350 mg/mL 500 mL Btl (per mL) IV (22:57)
[2023-06-04] MEDS: ketorolac 60 mg/2 mL INJ 30 MG IVP (23:05)
[2023-06-04 23:31] VITALS: BP 186/104; PULSE 84; RESP 16; O2SAT 96
[2023-06-05] VITALS (9 sets, daily range): BP systolic 108–168; BP diastolic 67–98; PULSE 79–110; RESP 14–18; TEMP 36.1–36.7; O2SAT 90–96; BMI 49.6
[2023-06-05 00:39] LABS: INR 0.97 (0.8-1.2)
[2023-06-05] MEDS: sodium chloride 0.9% 1,000 ML 125 ML IV ×2 (00:40→09:15)
[2023-06-05 04:57] LABS: Basophils # 0.1 10^3/uL (0.0-0.1); Basophils % 0.6 %; Eosinophils # 0.7 10^3/uL (0.0-0.8); Eosinophils % 7.2 %; Hematocrit 36.7 % (36-47); Lymphocytes % 29.7 %; Mean Corpuscular HGB Conc 30.8 g/dL (30-55); Mean Corpuscular Hemoglobin 25.7 pg (27-33); Mean Corpuscular Volume 83.6 fl (85-98); Mean Platelet Volume 9.9 fL (7.4-10.4); Monocytes # 0.9 10^3/uL (0.2-0.9); Neutrophils # 5.28 10^3/uL (1.8-7.7); Neutrophils % 53.1 %; Nucleated Red Blood Cells % 0 %; Platelet Count 334 10^3/cmm (157-399); Red Blood Count 4.39 10^6/uL (3.85-5.65); Red Cell Distribution Width 15.2 % (12.1-15.1); White Blood Count 9.93 10^3/uL (3.29-11.43)
[2023-06-05 05:15] LABS: Alanine Aminotransferase 11 U/L (0-33); Albumin Level 3.1 g/dL (3.5-5.2); Alkaline Phosphatase 120 U/L (35-105); Chloride 106 mmol/L (98-107); Potassium 3.6 mmol/L (3.5-5.1); Sodium 139 mmol/L (136-145)
[2023-06-05 05:29] LABS: Anion Gap 12.6 (5-19); Aspartate Amino Transferase 11 U/L (0-32); Blood Urea Nitrogen 7 mg/dL (6-20); Calcium 8.4 mg/dL (8.5-10.5); Carbon Dioxide 24 mmol/L (22-29); Globulin 3.3 g/dL (1.3-4.6); Glucose 89 mg/dL (65-115); Osmolality Calculated 285 mOsm/kg (285-295); Total Bilirubin 0.3 mg/dL (0.15-1.2); Total Protein 6.4 g/dL (6.6-8.7)
[2023-06-05] MEDS: piperacillin-tazobactam 3.375 GM in sodium chloride 0.9% (plus) 50 ML IV (09:16)
[2023-06-05] MEDS: lactated ringers 1,000 ML 125 ML IV (11:22)
--- NOTE | 2023-06-05 13:15 | PC.NURSE ---
Patient report given to Elena in GI lab. Patient left the floor for procedure at 1314.
[2023-06-05] MEDS: sodium chloride 0.9% 1,000 ML 30 ML IV (13:27)
--- NOTE | 2023-06-05 13:45 | P.ANESASSM_ITS ---
Pre-Anesthetic Assessment Height/Weight: Height 1.8 m Weight 161.207 kg Temp Pulse Resp BP Pulse Ox O2 Del Method 97.0 F L 86 18 164/90 94 Room Air 06/05/23 13:21 06/05/23 13:21 06/05/23 13:21 06/05/23 13:21 06/05/23 13:21 06/05/23 13:21 Operation Date: 06/05/23 14:55 Proposed Procedures p Laparoscopic Appendectomy(Not Applicable) - Wale Nuñez DO Familial anesthetic complications: None Was Beta Sonja taken within 24 hours: N/A Was Clonidine taken within 24 hours: N/A Last intake: Intake Last Solid Date 06/04/23 Social Tobacco and No alcohol Exam alert, oriented x 3, clear to auscultation bilaterally and regular rate & rhythm Airway Mallampati: Class I Dentition: full Pulmonary Asthma and Chronic Obstructive Pulmonary Disease CV/HEM Hypertension PVCs Metabolic Morbid Obesity [facility]c/[facility] Rheumatoid Arthritis Anesthetic Plan ASA status: 3 Anesthesia: General Risk of > 500 ml blood loss (7ml/kg in children): No Medications/Allergies Home Medications Medication Instructions Recorded Confirmed Last Taken Type compressor, for nebulizer #1 ea 05/31/21 06/05/23 Unknown Rx albuterol sulfate 2.5 mg/3 mL 2.5 mg (3 mL) inhalation QID PRN 06/15/22 06/05/23 Unknown Rx (0.083 %) solution for nebulization shortness of breath or wheezing #75 mL nebulizer accessories #1 ea 12/26/22 06/05/23 Unknown Rx cholecalciferol (vitamin D3) 250 250 mcg PO DAILY 02/08/23 06/05/23 Unknown History mcg (10,000 unit) capsule ibuprofen 800 mg tablet 800 mg PO Q8H PRN Pain 02/08/23 06/05/23 Unknown History albuterol sulfate 90 mcg/actuation 2 puff inhalation Q6H PRN 02/14/23 06/05/23 Unknown Rx aerosol inhaler (ProAir HFA) shortness of breath or wheezing #6.7 grams potassium chloride 10 mEq See Rx Instructions PO DAILY #120 03/23/23 06/05/23 Unknown Rx capsule,extended release caps venlafaxine 150 mg 150 mg PO QAM #30 caps 03/23/23 06/05/23 Unknown Rx capsule,extended release 24 hr (Effexor XR) prednisone 20 mg tablet See Rx Instructions .Route 05/02/23 06/05/23 Unknown Rx .COMPLEX #30 tabs fluticasone 250 mcg-salmeterol 50 1 inh inhalation BID #60 ea 05/10/23 06/05/23 Unknown Rx mcg/dose blistr powdr for inhalation (Wixela Inhub) metolazone 2.5 mg tablet 2.5 mg PO DAILY PRN swelling #30 05/17/23 06/05/23 Unknown Rx tabs Allergies Allergy/AdvReac Type Severity Reaction Status Date / Time medroxyprogesterone Allergy Severe afib Verified 06/04/23 21:57 [From Depo-Provera] diphtheria,pertussis Allergy SWELLING Verified 06/04/23 21:57 (acellular),te [From Adacel(Tdap Adolesn/Adult)(PF)] insect venom Allergy excessive Verified 06/04/23 21:57 swelling leflunomide Allergy Heart Palp Verified 06/04/23 21:57 to ER and GI complaints Sulfa (Sulfonamide Allergy ALGY-Hives Verified 06/04/23 21:57 Antibiotics) methotrexate AdvReac Intermediate increased Verified 06/04/23 21:57 arthritis nodules faster tofacitinib [From Xeljanz] AdvReac Intermediate fatigue Verified 06/04/23 21:57 and nausea Current Medications Generic Name Dose Route Start Last Admin Trade Name Freq PRN Reason Stop Dose Admin Sodium Chloride 1,000 mls @ 125 mls/hr 06/05/23 00:15 06/05/23 11:28 Sodium Chloride 0.9% IV 0 mls/hr .Q8H DONNY Infusion Lactated Ringer's 1,000 mls @ 125 mls/hr 06/05/23 00:30 06/05/23 13:15 Lactated Ringers IV 0 mls/hr .Q8H DONNY Infusion Piperacillin Sod/Tazobactam 50 mls @ 12.5 mls/hr 06/05/23 09:00 06/05/23 13:15 Sod 3.375 gm/ Sodium Chloride IV 0 mls/hr Q8H DONNY Infusion Protocol Sodium Chloride 1,000 mls @ 30 mls/hr 06/05/23 13:30 06/05/23 13:27 Sodium Chloride 0.9% IV 06/06/23 13:29 30 mls/hr .Q24H DONNY Administration PFSH Anesthesia Medical History Obesity, morbid, BMI 40.0-49.9 Metabolic syndrome FH: cholecystectomy 02/15/21 No pertinent past medical history neghx: htn,dm,thyroid,dvt/pe PCP: Michael Leger Rheumatoid arthritis Atrial fibrillation No episodes since I started metoprolol Edema Anxiety and depression Surgical History History of total abdominal hysterectomy (~10/09/22) PAPA, bilateral salpingectomy performed by Dr. Mcneill at [facility] in [place], [place] History of cholecystectomy (~01/2021) H/O: x 3 Family History Father Diabetes Hypertension CAD (coronary artery disease) Lung disease Mother Hypertension Rheumatoid arthritis CAD (coronary artery disease) Lung disease Sister CAD (coronary artery disease) Hypertension Lung disease Stroke Colon cancer dx'd at age 45 Family/Other Breast cancer paternal Grandmother Dementia Other Heart disease Hypercholesteremia Liver disease Migraines Denies family history of Ovarian cancer Clotting disorder Chronic kidney disease (CKD) Suicide Anesthesia complication Bleeding disorder Uterine cancer Social History Smoking and tobacco/nicotine status: current every day tobacco/nicotine user cigarettes Packs smoked per day: 1.5 Years cigarettes smoked: 20 [ Other cigarette details: Started at 22] Quit status (tobacco/nicotine): has quit using Female Reproductive History Spontaneous abortions: No Data Anesthesia 06/05/23 04:37 06/05/23 04:37 Short CBC 06/04/23 06/05/23 Range/Units 22:16 04:37 WBC 10.66 9.93 (3.29-11.43) 10^3/uL Hgb 12.30 11.30 (11.27-16.99) g/dL Hct 39.3 36.7 (36-47) % MCV 83.1 L 83.6 L (85-98) fl Plt Count 356 334 (157-399) 10^3/cmm Neut % (Auto) 55.6 53.1 % Neut # (Auto) 5.93 5.28 (1.8-7.7) 10^3/uL BMP 06/04/23 06/05/23 22:16 04:37 Sodium 139 139 Potassium 3.9 3.6 Chloride 105 106 Carbon Dioxide 24 24 BUN 6 7 Creatinine 0.5 0.4 L Glucose 81 89 Calcium 8.8 8.4 L Liver Function 06/04/23 06/05/23 Range/Units 22:16 04:37 Total Bilirubin 0.2 0.3 (0.15-1.2) mg/dL AST 11 11 (0-32) U/L ALT 12 11 (0-33) U/L Alkaline Phosphatase 135 H 120 H (35-105) U/L Albumin 3.4 L 3.1 L (3.5-5.2) g/dL Urine 06/04/23 Range/Units 22:40 Urine Color Colorless (Yellow) Urine Appearance Clear (CLEAR) Urine pH 6.5 (5-7) Ur Specific [place] 1.005 (1.005-1.030) Urine Protein Neg (Negative) Urine Glucose (UA) Norm (Normal) Urine Ketones Negative (Negative) Urine Nitrate Negative (Negative) Urine Bilirubin Neg (Negative) Ur Leukocyte Esterase Negative (Negative) Coags 06/04/23 22:16 PT 13.20 INR 0.97 Cardiac Studies: 2 Echocardiogram 02/27/21 Holter Monitor 12/15/20
--- NOTE | 2023-06-05 14:22 | PM.HP ---
Providers/Chief Complaint Admitting Physician: Wale Nuñez DO Primary Care Provider: DARREN Vieyra Chief Complaint: lower right abd pain 2 days History of Present Illness Bella Owusu is a 42 year old female who presented to the hospital with a 2-day history of right lower quadrant abdominal pain and anorexia. The pain does not radiate. She denies any nausea, emesis, diarrhea, constipation, hematochezia and/or melena. Palpation makes the pain worse. Palpation makes pain worse. Lying still makes pain better. She does report feeling feverish and having chills at home. She denies any recent history of travel, sick contacts or likely ingestion of bad food. A CT abdomen pelvis shows a normal-appearing appendix with some mild surrounding inflammation, indicative of possible early acute appendicitis Review of Systems General: Reports: 10 or more systems reviewed and unremarkable except in HPI and below Medications/Allergies Home Medications Medication Instructions Recorded Confirmed Last Taken Type compressor, for nebulizer #1 ea 05/31/21 06/05/23 Unknown Rx albuterol sulfate 2.5 mg/3 mL 2.5 mg (3 mL) inhalation QID PRN 06/15/22 06/05/23 Unknown Rx (0.083 %) solution for nebulization shortness of breath or wheezing #75 mL nebulizer accessories #1 ea 12/26/22 06/05/23 Unknown Rx cholecalciferol (vitamin D3) 250 250 mcg PO DAILY 02/08/23 06/05/23 Unknown History mcg (10,000 unit) capsule ibuprofen 800 mg tablet 800 mg PO Q8H PRN Pain 02/08/23 06/05/23 Unknown History albuterol sulfate 90 mcg/actuation 2 puff inhalation Q6H PRN 02/14/23 06/05/23 Unknown Rx aerosol inhaler (ProAir HFA) shortness of breath or wheezing #6.7 grams potassium chloride 10 mEq See Rx Instructions PO DAILY #120 03/23/23 06/05/23 Unknown Rx capsule,extended release caps venlafaxine 150 mg 150 mg PO QAM #30 caps 03/23/23 06/05/23 Unknown Rx capsule,extended release 24 hr (Effexor XR) prednisone 20 mg tablet See Rx Instructions .Route 05/02/23 06/05/23 Unknown Rx .COMPLEX #30 tabs fluticasone 250 mcg-salmeterol 50 1 inh inhalation BID #60 ea 05/10/23 06/05/23 Unknown Rx mcg/dose blistr powdr for inhalation (Wixela Inhub) metolazone 2.5 mg tablet 2.5 mg PO DAILY PRN swelling #30 05/17/23 06/05/23 Unknown Rx tabs Allergies Allergy/AdvReac Type Severity Reaction Status Date / Time medroxyprogesterone Allergy Severe afib Verified 06/04/23 21:57 [From Depo-Provera] diphtheria,pertussis Allergy SWELLING Verified 06/04/23 21:57 (acellular),te [From Adacel(Tdap Adolesn/Adult)(PF)] insect venom Allergy excessive Verified 06/04/23 21:57 swelling leflunomide Allergy Heart Palp Verified 06/04/23 21:57 to ER and GI complaints Sulfa (Sulfonamide Allergy ALGY-Hives Verified 06/04/23 21:57 Antibiotics) methotrexate AdvReac Intermediate increased Verified 06/04/23 21:57 arthritis nodules faster tofacitinib [From Xeljanz] AdvReac Intermediate fatigue Verified 06/04/23 21:57 and nausea PFSH Acute PFSH: Medical History Obesity, morbid, BMI 40.0-49.9 Metabolic syndrome FH: cholecystectomy 02/15/21 No pertinent past medical history neghx: htn,dm,thyroid,dvt/pe PCP: Michael Leger Rheumatoid arthritis Atrial fibrillation No episodes since I started metoprolol Edema Anxiety and depression Surgical History History of total abdominal hysterectomy (~10/09/22) PAPA, bilateral salpingectomy performed by Dr. Mcneill at [facility] in [place], [place] History of cholecystectomy (~01/2021) H/O: x 3 Family History Father Diabetes Hypertension CAD (coronary artery disease) Lung disease Mother Hypertension Rheumatoid arthritis CAD (coronary artery disease) Lung disease Sister CAD (coronary artery disease) Hypertension Lung disease Stroke Colon cancer dx'd at age 45 Family/Other Breast cancer paternal Grandmother Dementia Other Heart disease Hypercholesteremia Liver disease Migraines Denies family history of Ovarian cancer Clotting disorder Chronic kidney disease (CKD) Suicide Anesthesia complication Bleeding disorder Uterine cancer Social History Smoking and tobacco/nicotine status: current every day tobacco/nicotine user cigarettes Packs smoked per day: 1.5 Years cigarettes smoked: 20 [ Other cigarette details: Started at 22] Quit status (tobacco/nicotine): has quit using Female Reproductive History: Spontaneous abortions: No Vitals/I&O/Wt Last Vital Signs Temp 97.0 F L 06/05/23 13:21 Pulse 86 06/05/23 13:21 Resp 18 06/05/23 13:21 BP 164/90 06/05/23 13:21 Pulse Ox 94 06/05/23 13:21 O2 Del Method Room Air 06/05/23 13:21 06/04/23 06/05/23 06/05/23 22:59 06:59 14:59 Intake Total 1562.292 / 1562.292 Balance 1562.292 / 1562.292 Weight last 48 hrs Weight 355 lb 6.4 oz Weight 355 lb 6.4 oz Weight 355 lb 9.6 oz Weight 340 lb Physical Exam Narrative: General : Patient is morbidly obese, no acute distress, oriented x3 Head : Normal cephalic, a-traumatic. Ears : Pinnae and external canal are normal. Hearing is normal. Eyes : PERRLA, Sclera and injection are normal. No conjunctival discharge. Nose : Mucous membranes are without erythema. Throat : buccal mucosa is normal, gums are without significant recession or hypertrophy. Lungs : Equal chest rise bilaterally, no use of accessory muscles, trachea is midline. Cor : Rate and rhythm are normal. Abdomen : Soft, ND, tender to palpation right lower quadrant, negative Rovsing's, no g/r/m Extremities : No edema, no cyanosis or clubbing, dorsalis pedis pulses are present bilaterally, non-tender to palpation of calves. Upper extremities are normal bilaterally. Back : non-tender to palpation, no CVA tenderness. Neuro : CN II - XII intact, Upper and lower extremities have equal and full strength Data 06/05/23 04:37 06/05/23 04:37 A&P Assessment and plan (1) Acute appendicitis: Plan Laparoscopic Appendectomy The risks and benefits of the procedure, including but not limited to, bleeding, infection, scar, numbness, pain, damage to surrounding structures, conversion to an open procedure, were explained to the patient. He is understanding of the risks and wishes to proceed. Attestations Medical Necessity Statement*: Patient might be discharged after the procedure if it is very mild acute appendicitis. If it is more severe or if there is perforation she will require at least 1 night in the hospital for IV antibiotics and recovery. Coding Level of Care Code 13763 Diagnoses Acute appendicitis K35.80
[2023-06-05] MEDS: lidocaine-epi 2% PF 1:200,000 20 mL SDV XX (16:22)
--- NOTE | 2023-06-05 17:11 | P.OP_ITS ---
Operative Report Date of procedure: June 05, 2023 Pre-op diagnosis: Acute appendicitis Post-op diagnosis: same Procedure done: Laparoscopic appendectomy Implants: None Specimens removed/disposition: Appendix Surgeon: Wale Nuñez DO Anesthesia: General and Local Estimated blood loss (mL): 20 Complications: None apparent Brief History: This very pleasant 42-year-old female presented to the hospital with abdominal pain. She was diagnosed with acute gastritis. Laparoscopic appendectomy was indicated. The risk benefits were explained and documented. Procedure: Patient was wheeled into the operative room and placed on the OR table in a supine position. Abdomen was inspected prepped and draped in usual sterile fashion. Time-out was performed and all present were in agreement. A 15 blade scalp was used to make a stab incision in the left upper quadrant and intra- abdominal insufflation was achieved using a Veress needle. After localizing the tissue incisions were made and a 12 millimeter trocar was placed into the umbilicus as well as a 5mm in the right lower quadrant and a 5 mm in the left lower quadrant . The appendix was identified and was mildly inflamed at the tip but densely scarred down to the abdominal wall laterally. I used the liga sure to ligate the mesoappendix at the base. I then used 2 PDS endo-loops to snare the base of the appendix. I then used the laparoscopic LigaSure to ligate the appendix distally. The appendix was removed from the abdomen using an Endo-Catch bag through the umbilical incision. I examined the abdomen and no further pathology was identified. Hemostasis was noted. I then closed the umbilical site with a David-Lavon and 0 Vicryl suture in a figure of 8 fashion. All ports removed. Skin was washed and dried. Incisions were closed with 4 O Vicryl in a subcuticular interrupted fashion. Skin glue was applied. Patient tolerated the procedure well.
--- NOTE | 2023-06-05 17:14 | PM.DCS ---
Discharge Providers Date of Admission: 06/05/23 00:42 Date of Discharge: June 05, 2023 Attending Provider at Admission: Wale Nuñez DO Attending Provider at Discharge: Wale Nuñez DO Primary Care Provider: DARREN Vieyra Diagnoses at Discharge Discharge Diagnosis (1) Acute appendicitis: Status: Acute Reason for Visit Reason for Visit: lower right abd pain 2 days Hospital Course Hospital Course This very pleasant 42-year-old female came to the hospital with abdominal pain. She was diagnosed with acute appendicitis. She underwent laparoscopic appendectomy and was discharged home in good condition the same day on antibiotics with pain control and follow-up. Physical Exam Narrative: General : Patient is well developed , no acute distress, oriented x3 Head : Normal cephalic, a-traumatic. Ears : Pinnae and external canal are normal. Hearing is normal. Eyes : PERRLA, Sclera and injection are normal. No conjunctival discharge. Nose : Mucous membranes are without erythema. Throat : buccal mucosa is normal, gums are without significant recession or hypertrophy. Lungs : Equal chest rise bilaterally, no use of accessory muscles, trachea is midline. Cor : Rate and rhythm are normal. Abdomen : Soft, ND, appropriately tender, no g/r/m Extremities : No edema, no cyanosis or clubbing, dorsalis pedis pulses are present bilaterally, non-tender to palpation of calves. Upper extremities are normal bilaterally. Back : non-tender to palpation, no CVA tenderness. Neuro : CN II - XII intact, Upper and lower extremities have equal and full strength Discharge Data Studies Completed and Pending Completed Studies During Hospitalization Category Date Time Status CT abdomen pelvis w con* [id number] Urgent Cat Scan 06/04/23 22:32 Completed Pending at discharge Category Date Time Status Pathology: Surgical [PTH] Routine Pth 06/05/23 16:49 Ordered Radiology Impressions Abdomen/Pelvis CT 06/04/23 22:32 IMPRESSION: 1. The appendix is normal in size but there is a [id number] amount periappendiceal fat stranding. No free fluid or abscess. An early uncomplicated appendicitis can not be excluded. 2. There is a 5 mm pulmonary nodule in the right middle lobe (series 3, image 1). For patients at low risk (minimal or absent history of smoking and of other known risk factors), no routine follow-up is indicated. For patients at high risk (history of smoking or of other known risk factors), consider optional CT Chest at 12 months. (Reference: Malika) REFERENCES: Malika Gutierrez, et al. Guidelines for Management of Incidental Pulmonary Nodules Detected on CT Images: From the Fleischner Society 2017. Radiology. 2017;284(1):228-243. Laboratory Results WBC 9.93 10^3/uL (3.29-11.43) 06/05/23 04:37 RBC 4.39 10^6/uL (3.85-5.65) 06/05/23 04:37 Hgb 11.30 g/dL (11.27-16.99) 06/05/23 04:37 Hct 36.7 % (36-47) 06/05/23 04:37 MCV 83.6 fl (85-98) L 06/05/23 04:37 MCH 25.7 pg (27-33) L 06/05/23 04:37 MCHC 30.8 g/dL (30-55) 06/05/23 04:37 RDW 15.2 % (12.1-15.1) H 06/05/23 04:37 Plt Count 334 10^3/cmm (157-399) 06/05/23 04:37 MPV 9.9 fL (7.4-10.4) 06/05/23 04:37 Neut % (Auto) 53.1 % 06/05/23 04:37 Lymph % (Auto) 29.7 % 06/05/23 04:37 [place] % (Auto) 9.0 % 06/05/23 04:37 Eos % (Auto) 7.2 % 06/05/23 04:37 Baso % (Auto) 0.6 % 06/05/23 04:37 Neut # (Auto) 5.28 10^3/uL (1.8-7.7) 06/05/23 04:37 Lymph # (Auto) 3.0 10^3/uL (0.8-4.8) 06/05/23 04:37 [place] # (Auto) 0.9 10^3/uL (0.2-0.9) 06/05/23 04:37 Eos # (Auto) 0.7 10^3/uL (0.0-0.8) 06/05/23 04:37 Baso # (Auto) 0.1 10^3/uL (0.0-0.1) 06/05/23 04:37 Nucleated RBC % (auto) 0 % 06/05/23 04:37 Nucleated RBCs # 0.0 /100WBC 06/05/23 04:37 PT 13.20 SECONDS (12.1-14.9) 06/04/23 22:16 INR 0.97 (0.8-1.2) 06/04/23 22:16 Sodium 139 mmol/L (136-145) 06/05/23 04:37 Potassium 3.6 mmol/L (3.5-5.1) 06/05/23 04:37 Chloride 106 mmol/L (98-107) 06/05/23 04:37 Carbon Dioxide 24 mmol/L (22-29) 06/05/23 04:37 Anion Gap 12.6 (5-19) 06/05/23 04:37 BUN 7 mg/dL (6-20) 06/05/23 04:37 Creatinine 0.4 mg/dL (0.5-0.9) L 06/05/23 04:37 GFR Calculation 175.0 mL/min (90-130) H 06/05/23 04:37 Glucose 89 mg/dL (65-115) 06/05/23 04:37 Calculated Osmolality 285 mOsm/kg (285-295) 06/05/23 04:37 Calcium 8.4 mg/dL (8.5-10.5) L 06/05/23 04:37 Total Bilirubin 0.3 mg/dL (0.15-1.2) 06/05/23 04:37 AST 11 U/L (0-32) 06/05/23 04:37 ALT 11 U/L (0-33) 06/05/23 04:37 Alkaline Phosphatase 120 U/L (35-105) H 06/05/23 04:37 Total Protein 6.4 g/dL (6.6-8.7) L 06/05/23 04:37 Albumin 3.1 g/dL (3.5-5.2) L 06/05/23 04:37 Globulin 3.3 g/dL (1.3-4.6) 06/05/23 04:37 Lipase 13 U/L (13-60) 06/04/23 22:16 HCG, Qual Negative (Negative) 06/04/23 22:16 Urine Color Colorless (Yellow) 06/04/23 22:40 Urine Appearance Clear (CLEAR) 06/04/23 22:40 Urine pH 6.5 (5-7) 06/04/23 22:40 Ur Specific [place] 1.005 (1.005-1.030) 06/04/23 22:40 Urine Protein Neg (Negative) 06/04/23 22:40 Urine Glucose (UA) Norm (Normal) 06/04/23 22:40 Urine Ketones Negative (Negative) 06/04/23 22:40 Urine Blood Neg (Negative) 06/04/23 22:40 Urine Nitrate Negative (Negative) 06/04/23 22:40 Urine Bilirubin Neg (Negative) 06/04/23 22:40 Urine Urobilinogen Neg mg/dL (Negative) 06/04/23 22:40 Ur Leukocyte Esterase Negative (Negative) 06/04/23 22:40 Procedures Performed Laparoscopic appendectomy Vitals Last Vital Signs Temp 97.0 F L 06/05/23 13:21 Pulse 86 06/05/23 13:21 Resp 18 06/05/23 13:21 BP 164/90 06/05/23 13:21 Pulse Ox 94 06/05/23 13:21 O2 Del Method Room Air 06/05/23 13:21 Discharge Plan Discharge Patient Disposition: Home Condition: Stable Prescriptions: New hydrocodone-acetaminophen 7.5-325 mg tablet 1 tab PO Q6H PRN (Reason: pain) Qty: 20 0RF docusate sodium [Colace] 100 mg capsule 100 mg PO BID Qty: 14 0RF amoxicillin-pot clavulanate 875-125 mg tablet 1 tab PO BID Qty: 14 0RF Continued (DME) compressor, for nebulizer Device See Rx Instructions .Route Qty: 1 0RF Rx Instructions: As directed albuterol sulfate 2.5 mg /3 mL (0.083 %) solution for nebulization 2.5 mg inhalation QID PRN (Reason: shortness of breath or wheezing) Qty: 75 1RF venlafaxine [Effexor XR] 150 mg capsule,extended release 24hr 150 mg PO QAM Qty: 30 2RF potassium chloride 10 mEq capsule, extended release See Rx Instructions PO DAILY Qty: 120 2RF Rx Instructions: 20mEq-40mEq PO daily; prednisone 20 mg tablet See Rx Instructions .ROUTE .COMPLEX Qty: 30 2RF Dose Instruction: TAKE ONE TABLET BY MOUTH DAILY NEEDED FOR rheumatoid arthritis Rx Instructions: TAKE ONE TABLET BY MOUTH DAILY NEEDED FOR rheumatoid arthritis cholecalciferol (vitamin D3) 250 mcg (10,000 unit) capsule 250 mcg PO DAILY (DME) nebulizer accessories Kit See Rx Instructions .Route Qty: 1 0RF Rx Instructions: As directed albuterol sulfate [ProAir HFA] 90 mcg/actuation HFA aerosol inhaler 2 puff inhalation Q6H PRN (Reason: shortness of breath or wheezing) Qty: 6.7 2RF fluticasone propion-salmeterol [Wixela Inhub] 250-50 mcg/dose blister with device 1 inh inhalation BID Qty: 60 6RF metolazone 2.5 mg tablet 2.5 mg PO DAILY PRN (Reason: swelling) Qty: 30 0RF Held ibuprofen 800 mg tablet 800 mg PO Q8H PRN (Reason: Pain) Hold Instructions: Resume on 06/07/23. Discharge Orders: Discharge Order (Routine); Ordered 06/05/23 Ordered By: Wale Nuñez Referrals: Michael Leger, [facility] [Primary Care Provider] - 4-7 days Wale Nuñez DO [Physician] - 2 weeks Discharge Diet: Advance as tolerated Discharge Activity: Resume usual activity Patient Instructions: Opioid Safety, Post Anesthesia Care Activity Restrictions/Additional Instructions: Do not soak incisions underwater for 2 weeks. Shower daily. Do not take any ibuprofen or Aleve over 48 hours as it increases bleeding risk Discharge Attestations Time Spent in Discharge Care*: less than 30 min Quality Metrics Clinical Quality Measures [ No reported AMI, CVA or VTE this stay] Coding Level of Care Code Acute Code for [facility] Diagnoses Acute appendicitis K35.80
--- NOTE | 2023-06-05 18:05 | ANE.PACU2 ---
Inpatient post-anesthesia follow up: Airway intact: Yes Vital signs: Temperature 97 F Pulse Rate 93 Respiratory Rate 18 Blood Pressure 139/84 Pulse Oximetry 92 Oxygen Delivery Me thod Room Air Oxygen Flow Rate Fraction of Inspir ed Oxygen Hydration adequate: Yes Nausea and vomiting: No Pain level: 1 Mental status: Baseline
[2023-06-05] MEDS: ondansetron 2 mg/ML SDV 2 mL 4 MG IVP (18:14)
== END 2023-06-05 18:50 | disposition home or self-care (01) ==
LOC: ER 06-05 00:33 → MEDSURG 06-05 00:42
PROVIDERS: Emergency Medicine; Internal Medicine; Admitting Provider Surgery; Emergency Provider Physician Assistant; PCP Nurse Practitioner; Visit Provider Surgery
PROC: 0DTJ4ZZ Resection of Appendix, Percutaneous Endoscopic Approach (ICD-10-PCS; CPT 44970; principal; 2023-06-05 14:45)
DX: K35.80 Unspecified acute appendicitis (principal); E66.01 Morbid (severe) obesity due to excess calories; Z68.42 Body mass index [BMI] 45.0-49.9, adult; M06.9 Rheumatoid arthritis, unspecified; I48.91 Unspecified atrial fibrillation; I10 Essential (primary) hypertension; F17.210 Nicotine dependence, cigarettes, uncomplicated
CPT/HCPCS: 44970; 36415; 74177; 80053; 81003; 83690; 84703; 85025; 85610; 88304; 96361; 96365; 96375; 99285; G0378; J0330; J1100; J1885; J2250; J2405; J2543; J2704; J3010; J3490; J7030; J7120; Q9967

== ENCOUNTER 2023-08-01 10:41 | Oncology outpatient (recurring) (ONCR) | payer BC, MEDICAID, SELFPAY ==
[2023-08-01] VITALS (7 sets, daily range): BP systolic 136–160; BP diastolic 83–89; PULSE 79–102; RESP 17–20; TEMP 36.1–36.6; O2SAT 92–95
[2023-08-01] MEDS: sodium chloride 0.9% 250 ML 75 ML IV (11:33)
[2023-08-01] MEDS: acetaminophen 325 mg Tablet 650 MG PO (11:33)
[2023-08-01] MEDS: diphenhydrAMINE 50 mg/mL SDV 1mL 25 MG IVP (11:33)
[2023-08-01] MEDS: methylPREDNISolone sod succ 40 mg/mL INJ IVP (11:33)
== END 2023-08-09 23:59 | disposition home or self-care (01) ==
PROVIDERS: PCP Nurse Practitioner; Visit Provider Internal Medicine Rheumatology
DX: M05.79 Rheumatoid arthritis with rheumatoid factor of multiple sites without organ or systems involvement (principal)
CPT/HCPCS: 96375; 96413; A4222; J1200; J1745; J2919; J7050

== ENCOUNTER → 2023-08-28 09:56 | Outpatient (BNVA) | payer BC, MEDICAID, SELFPAY | PROVIDERS: PCP Nurse Practitioner; Visit Provider Nurse Practitioner | DX: F41.9 Anxiety disorder, unspecified (principal); F32.9 Major depressive disorder, single episode, unspecified; M05.79 Rheumatoid arthritis with rheumatoid factor of multiple sites without organ or systems involvement | CPT/HCPCS: 80053; 84439; 84443; 84481; 85025 ==

== ENCOUNTER 2023-09-19 11:10 | Oncology outpatient (recurring) (ONCR) | payer BC, MEDICAID, SELFPAY ==
[2023-09-19] VITALS (8 sets, daily range): BP systolic 92–160; BP diastolic 66–89; PULSE 72–90; RESP 16–18; TEMP 35.8–36.6; O2SAT 94–99
--- NOTE | 2023-09-19 11:24 | PC.NURSE ---
Tylenol 650 mg PO ordered per Dr. Lamar as pre-medication for Infliximab. Patient refused Tylenol and stated she took 800 mg ibuprofen PO before arriving for infusion today.
[2023-09-19] MEDS: diphenhydrAMINE 50 mg/mL SDV 1mL 25 MG IVP (11:45)
[2023-09-19] MEDS: sodium chloride 0.9% 250 ML 75 ML IV (11:45)
[2023-09-19] MEDS: methylPREDNISolone sod succ 40 mg/mL INJ IVP (11:46)
[2023-09-19] MEDS: INFLIXIMAB IV (12:15)
[2023-09-19] MEDS: SODIUM CHLORIDE 0.9% IV (12:15)
== END 2023-10-09 23:59 | disposition home or self-care (01) ==
PROVIDERS: PCP Nurse Practitioner; Visit Provider Internal Medicine Rheumatology
DX: M05.79 Rheumatoid arthritis with rheumatoid factor of multiple sites without organ or systems involvement (principal)
CPT/HCPCS: 96375; 96413; 96415; A4222; J1200; J1745; J2919; J7050

== ENCOUNTER 2023-10-31 11:00 | Oncology outpatient (recurring) (ONCR) | payer BC, MEDICAID, SELFPAY ==
--- NOTE | 2023-10-10 15:00 | MM_ITS ---
WS: [id number] LEFT 3D TOMOSYNTHESIS DIGITAL MAMMOGRAPHY WITH CAD CLINICAL INFORMATION: R92.8 - Other abnormal and inconclusive findings on diagn... HISTORY: Additional views COMPARISON: 09/24/2023 TECHNIQUE: 3 views of the left breast were obtained. FINDINGS: Scattered fibroglandular densities of the left breast. Again seen is the small ovoid nodule central L EFT breast mid depth measuring 8 mm. Ultrasound is pending. ULTRASOUND BREAST LEFT TECHNIQUE: Ultrasound left breast focused area of concern. CLINICAL INFORMATION: R92.8 - Other abnormal and inconclusive findings on diagn... FINDINGS: Ultrasound LEFT breast at the 6:00 and 12 o'clock position. Small ovoid hypoechoic nodule at the 6 o' clock position 1 cm from the nipple. This lesion is nonspecific and does not appear cystic. Although small and somewhat difficult to visualize, recommend ultrasound-guided biopsy for definitive evaluati on. MM/[place] [id number] IMPRESSION: BI-RADS: 4-Suspicious Finding-Biopsy Should Be Considered FOLLOW UP: US Guided Biopsy Recommended Recommend ultrasound-guided biopsy of the small ovoid lesion at the 6 o'clock p osition
--- NOTE | 2023-10-10 15:30 | US_ITS ---
WS: [id number] LEFT 3D TOMOSYNTHESIS DIGITAL MAMMOGRAPHY WITH CAD CLINICAL INFORMATION: R92.8 - Other abnormal and inconclusive findings on diagn... HISTORY: Additional views COMPARISON: 09/24/2023 TECHNIQUE: 3 views of the left breast were obtained. FINDINGS: Scattered fibroglandular densities of the left breast. Again seen is the small ovoid nodule central L EFT breast mid depth measuring 8 mm. Ultrasound is pending. ULTRASOUND BREAST LEFT TECHNIQUE: Ultrasound left breast focused area of concern. CLINICAL INFORMATION: R92.8 - Other abnormal and inconclusive findings on diagn... FINDINGS: Ultrasound LEFT breast at the 6:00 and 12 o'clock position. Small ovoid hypoechoic nodule at the 6 o' clock position 1 cm from the nipple. This lesion is nonspecific and does not appear cystic. Although small and somewhat difficult to visualize, recommend ultrasound-guided biopsy for definitive evaluati on. US/US breast LT limited* [id number] IMPRESSION: BI-RADS: 4-Suspicious Finding-Biopsy Should Be Considered FOLLOW UP: US Guided Biopsy Recommended Recommend ultrasound-guided biopsy of the small ovoid lesion at the 6 o'clock p osition
--- NOTE | 2023-10-23 14:45 | US_ITS ---
WS: [id number] ULTRASOUND-GUIDED LEFT BREAST BIOPSY HISTORY: Indeterminate mass LEFT breast at 6:00. COMPARISON: 10/10/2023, 09/24/2023 Procedure, risks and complications are explained to the patient. Medications are reviewed. Consent is obtained. The mass in the LEFT breast is localized with ultrasound. Mass localizes to 6:00, 1 cm from the nippl e. Skin is cleansed with ChloraPrep and anesthetized with 1% buffered lidocaine. Small dermatome is m willi. Under sterile conditions mass is biopsied with a 14-gauge Achieve needle. Multiple core biopsies are performed. Material placed in formalin and sent to pathology for review. No complications encoun tered. Breast tissue marker (Bard ultrasound enhanced ribbon): Single. Patient left the radiology suite with no complications. Patient is instructed to return to [facility] with any concerns. US/[place] [id number] IMPRESSION: 1. Uncomplicated core needle biopsy LEFT breast mass at 6:00. PATHOLOGY: Fibroepithelial lesion. No atypia or malignancy. Probable fibroadeno ma. RECOMMENDATION: Diagnostic LEFT mammogram and ultrasound in 6 months. Recommend ed to confirm stability.
[2023-10-31] VITALS (8 sets, daily range): BP systolic 104–141; BP diastolic 68–86; PULSE 64–85; RESP 16; TEMP 36.2–36.5; O2SAT 95–97
[2023-10-31] MEDS: sodium chloride 0.9% 250 ML 75 ML IV (11:15)
[2023-10-31] MEDS: acetaminophen 325 mg Tablet 650 MG PO (11:18)
[2023-10-31] MEDS: diphenhydrAMINE 50 mg/mL SDV 1mL 25 MG IVP (11:19)
[2023-10-31] MEDS: methylPREDNISolone sod succ 40 mg/mL INJ IVP (11:25)
[2023-10-31] MEDS: infliximab-abda 800 MG in sodium chloride 0.9% 250 ML 10 MG IV (11:38)
== END 2023-11-09 23:55 | disposition home or self-care (01) ==
PROVIDERS: PCP Nurse Practitioner; Visit Provider Nurse Practitioner
DX: Z53.9 Procedure and treatment not carried out, unspecified reason (principal); Z79.899 Other long term (current) drug therapy; M06.89 Other specified rheumatoid arthritis, multiple sites
CPT/HCPCS: 19083; 76642; 77061; 88305; 96375; 96413; 96415; A4222; G0279; J1200; J2919; J7050; Q5104

== ENCOUNTER → 2023-11-13 09:38 | Outpatient (BNVA) | payer BC, MEDICAID, SELFPAY | PROVIDERS: PCP Nurse Practitioner; Visit Provider Nurse Practitioner | DX: E55.9 Vitamin D deficiency, unspecified (principal); E88.810 Metabolic syndrome; F41.9 Anxiety disorder, unspecified; F32.9 Major depressive disorder, single episode, unspecified; R60.0 Localized edema | CPT/HCPCS: 80053; 80061; 82306; 82607; 83735; 84207; 84425; 84591 ==

== ENCOUNTER 2023-12-12 10:53 | Oncology outpatient (recurring) (ONCR) | payer BC, MEDICAID, SELFPAY ==
[2023-12-12] VITALS (8 sets, daily range): BP systolic 125–154; BP diastolic 72–84; PULSE 74–86; RESP 17–18; TEMP 35.9–36.9; O2SAT 92–100
[2023-12-12 11:39] LABS: Basophils # 0.1 10^3/uL (0.0-0.1); Basophils % 0.5 %; Eosinophils # 0.4 10^3/uL (0.0-0.8); Eosinophils % 3.6 %; Hematocrit 43.3 % (36-47); Lymphocytes # 2.5 10^3/uL (0.8-4.8); Lymphocytes % 23.6 %; Mean Corpuscular HGB Conc 31.6 g/dL (30-55); Mean Corpuscular Hemoglobin 26.1 pg (27-33); Mean Corpuscular Volume 82.5 fl (85-98); Mean Platelet Volume 9.9 fL (7.4-10.4); Neutrophils # 6.57 10^3/uL (1.8-7.7); Neutrophils % 62.6 %; Nucleated Red Blood Cells % 0 %; Platelet Count 344 10^3/cmm (157-399); Red Blood Count 5.25 10^6/uL (3.85-5.65); Red Cell Distribution Width 15.9 % (12.1-15.1)
[2023-12-12] MEDS: sodium chloride 0.9% 250 ML 75 ML IV (11:50)
[2023-12-12] MEDS: acetaminophen 325 mg Tablet 650 MG PO (11:52)
[2023-12-12] MEDS: methylPREDNISolone sod succ 40 mg/mL INJ IVP (11:54)
[2023-12-12] MEDS: diphenhydrAMINE 50 mg/mL SDV 1mL 25 MG IVP (11:57)
[2023-12-12 12:13] LABS: Alanine Aminotransferase 13 U/L (0-33); Albumin Level 3.6 g/dL (3.5-5.2); Alkaline Phosphatase 122 U/L (35-105); Aspartate Amino Transferase 14 U/L (0-32); Creatinine Clr Calc Pharmacy 249.9582; Globulin 3.6 g/dL (1.3-4.6); Glomerular Filtration Rate 134.7 mL/min (90-130); Total Bilirubin 0.2 mg/dL (0.15-1.2); Total Protein 7.2 g/dL (6.6-8.7)
[2023-12-12] MEDS: infliximab-abda 800 MG in sodium chloride 0.9% 250 ML 10 MG IV (12:37)
[2023-12-12 12:41] LABS: Erythrocyte Sedimentation Rate 29 mm/hr (0-15)
== END 2024-01-09 23:59 | disposition home or self-care (01) ==
PROVIDERS: Internal Medicine Rheumatology; PCP Nurse Practitioner; Visit Provider Nurse Practitioner
DX: M05.79 Rheumatoid arthritis with rheumatoid factor of multiple sites without organ or systems involvement; Z79.899 Other long term (current) drug therapy
CPT/HCPCS: 80076; 82565; 85025; 85651; 96375; 96413; 96415; A4222; J1200; J2919; J7050; Q5104

== ENCOUNTER → 2024-01-09 10:33 | Outpatient (BNVA) | payer BC, MEDICAID, SELFPAY | PROVIDERS: PCP Nurse Practitioner; Visit Provider Obstetrics & Gynecology | DX: R10.2 Pelvic and perineal pain (principal) | CPT/HCPCS: 76830 ==

== ENCOUNTER → 2024-01-22 10:29 | Outpatient (BNVA) | payer BC, MEDICAID, SELFPAY | PROVIDERS: PCP Nurse Practitioner; Visit Provider Nurse Practitioner | DX: E55.9 Vitamin D deficiency, unspecified (principal); R73.9 Hyperglycemia, unspecified | CPT/HCPCS: 80053; 82306; 83036; 83735; 85025 ==

== ENCOUNTER 2024-01-23 10:52 | Oncology outpatient (recurring) (ONCR) | payer BC, MEDICAID, SELFPAY ==
[2024-01-23] MEDS: sodium chloride 0.9% 250 ML 75 ML IV (11:35)
[2024-01-23] MEDS: methylPREDNISolone sod succ 40 mg/mL INJ IVP (11:38)
[2024-01-23] MEDS: acetaminophen 325 mg Tablet 650 MG PO (11:42)
[2024-01-23] MEDS: diphenhydrAMINE 50 mg/mL SDV 1mL 25 MG IVP (11:42)
[2024-01-23 11:56] VITALS: BP 141/81; PULSE 74; TEMP 36.2; O2SAT 97
[2024-01-23] MEDS: INFLIXIMAB IV (12:16)
[2024-01-23] MEDS: SODIUM CHLORIDE 0.9% IV (12:16)
[2024-01-23 13:33] VITALS: BP 143/81; PULSE 72; TEMP 36; O2SAT 93
== END 2024-02-08 23:59 | disposition home or self-care (01) ==
PROVIDERS: PCP Nurse Practitioner; Visit Provider Nurse Practitioner
DX: M05.79 Rheumatoid arthritis with rheumatoid factor of multiple sites without organ or systems involvement (principal); Z79.899 Other long term (current) drug therapy
CPT/HCPCS: 96375; 96413; A4222; J1200; J1745; J2919; J7050

== ENCOUNTER 2024-03-05 10:48 | Oncology outpatient (recurring) (ONCR) | payer BC, MEDICAID, SELFPAY ==
[2024-03-05 12:55] VITALS: BP 140/85; PULSE 86; RESP 16; TEMP 36.6; O2SAT 98
[2024-03-05] MEDS: sodium chloride 0.9% 250 ML 125 ML IV (13:31)
[2024-03-05] MEDS: diphenhydrAMINE 50 mg/mL SDV 1mL 25 MG IVP (13:34)
[2024-03-05] MEDS: acetaminophen 325 mg Tablet 650 MG PO (13:36)
[2024-03-05] MEDS: methylPREDNISolone sod succ 40 mg/mL INJ IVP (13:37)
[2024-03-05 15:11] VITALS: BP 162/85; PULSE 88; RESP 18; TEMP 36.2; O2SAT 96
== END 2024-03-10 23:59 | disposition home or self-care (01) ==
PROVIDERS: PCP Nurse Practitioner; Visit Provider Nurse Practitioner
DX: Z79.899 Other long term (current) drug therapy; M05.89 Other rheumatoid arthritis with rheumatoid factor of multiple sites; Z53.9 Procedure and treatment not carried out, unspecified reason
CPT/HCPCS: 96375; 96413; A4222; J1200; J1745; J2919; J7050

== ENCOUNTER → 2024-04-23 10:33 | Outpatient (BNVA) | payer BC, MEDICAID, SELFPAY | PROVIDERS: PCP Nurse Practitioner; Visit Provider Nurse Practitioner | DX: E55.9 Vitamin D deficiency, unspecified (principal); E88.810 Metabolic syndrome | CPT/HCPCS: 80053; 80061; 82306; 84443; 85025 ==

== ENCOUNTER 2024-05-07 12:59 | Oncology outpatient (recurring) (ONCR) | payer BC, MEDICAID, SELFPAY ==
[2024-05-07] MEDS: acetaminophen 325 mg Tablet 650 MG PO (14:46)
[2024-05-07] MEDS: sodium chloride 0.9% 250 ML 75 ML IV (14:46)
[2024-05-07] MEDS: diphenhydrAMINE 50 mg/mL SDV 1mL 25 MG IVP (14:47)
[2024-05-07] MEDS: methylPREDNISolone sod succ 40 mg/mL INJ IVP (14:51)
[2024-05-07] MEDS: INFLIXIMAB IV (15:19)
[2024-05-07] MEDS: SODIUM CHLORIDE 0.9% IV (15:19)
[2024-05-07 16:57] VITALS: BP 135/80; PULSE 80; RESP 17; TEMP 36.3; O2SAT 95
== END 2024-05-08 23:59 | disposition home or self-care (01) ==
PROVIDERS: PCP Nurse Practitioner; Visit Provider Nurse Practitioner
DX: M05.79 Rheumatoid arthritis with rheumatoid factor of multiple sites without organ or systems involvement (principal); Z79.899 Other long term (current) drug therapy; Z79.620 Long term (current) use of immunosuppressive biologic
CPT/HCPCS: 80053; 80061; 82306; 84443; 85025; 96413; A4222; J1200; J1745; J2919; J7050

== ENCOUNTER 2024-06-05 00:58 | Emergency (ER) | payer BC, MEDICAID, SELFPAY ==
[2024-06-05 01:17] VITALS: BP 197/97; PULSE 97; RESP 18; TEMP 36.6; O2SAT 97; BMI 50.2
--- NOTE | 2024-06-05 01:40 | W.ED.GIBLEED ---
HPI - GI Bleed General: Chief complaint: GI Bleed Stated complaint: Possibly GI Bleed Dizzy Time Seen by Provider: 06/05/24 01:29 History of Present Illness: P presents to the ER with complaints of GI bleed off and on for about the last 2 weeks patient does have a hemorrhoids but said she is passing dark red blood with clots now patient denies any black tarry stools. Patient also complained she is in a bit lightheaded dizzy so she thought she needed to come in to be evaluated. Patient denies any abdominal pelvic pain. Patient is never had a colonoscopy. Patient is not on any type of anticoagulant. Related Data Home Medications ?Medication ?Instructions ?Recorded ?Confirmed ibuprofen 800 mg tablet 800 mg PO Q8H PRN Pain 02/08/23 04/23/24 Held on 06/05/23. Instructions: Resume on 06/07/23. infliximab [Remicade] IV 09/18/23 04/23/24 cholecalciferol (vitamin D3) 250 See Rx Instructions PO DAILY 11/13/23 04/23/24 mcg (10,000 unit) capsule Previous Rx's ?Medication ?Instructions ?Recorded compressor, for nebulizer #1 ea 05/31/21 nebulizer accessories #1 ea 12/26/22 fluticasone 250 mcg-salmeterol 50 1 inh inhalation BID #60 ea 05/10/23 mcg/dose blistr powdr for inhalation (Wixela Inhub) albuterol sulfate 90 mcg/actuation 2 puff inhalation Q6H PRN 11/13/23 aerosol inhaler shortness of breath or wheezing #6.7 grams prednisone 20 mg tablet See Rx Instructions .Route 03/24/24 .COMPLEX #30 tabs albuterol sulfate 2.5 mg/3 mL 2.5 mg (3 mL) inhalation QID PRN 04/15/24 (0.083 %) solution for nebulization shortness of breath or wheezing #75 mL desvenlafaxine succinate 100 mg 100 mg PO DAILY #30 tabs 04/26/24 tablet,extended release 24 hr (Pristiq) potassium chloride 10 mEq See Rx Instructions PO DAILY #120 04/26/24 capsule,extended release caps spironolactone 100 mg tablet 100 mg PO BID #60 tabs 04/26/24 Allergies Allergy/AdvReac Type Severity Reaction Status Date / Time medroxyprogesterone (From Allergy Severe afib Verified 04/23/24 10:43 Depo-Provera) diphtheria,pertussis Allergy SWELLING Verified 04/23/24 10:43 (acellular),te (From Adacel(Tdap Adolesn/Adult)(PF)) insect venom Allergy excessive Verified 04/23/24 10:43 swelling leflunomide Allergy Heart Palp Verified 04/23/24 10:43 to ER and GI complaints Sulfa (Sulfonamide Allergy ALGY-Hives Verified 04/23/24 10:43 Antibiotics) methotrexate AdvReac Intermediate increased Verified 04/23/24 10:43 arthritis nodules faster tofacitinib (From Xeljanz) AdvReac Intermediate fatigue Verified 04/23/24 10:43 and nausea Review of Systems General: Reports: 10 or more systems reviewed and unremarkable except in HPI and below PFSH ED PFSH: Medical History Obesity, morbid, BMI 40.0-49.9 Metabolic syndrome FH: cholecystectomy 02/15/21 No pertinent past medical history neghx: htn,dm,thyroid,dvt/pe PCP: Michael Leger Rheumatoid arthritis Atrial fibrillation No episodes since I started metoprolol Edema Anxiety and depression Surgical History History of appendectomy June [address] Joaquin FIELDS History of total abdominal hysterectomy (~10/09/22) [facility], bilateral salpingectomy performed by Dr. Mcneill at [facility] in [place], [place] History of cholecystectomy (~01/2021) H/O: x 3 Family History Father Diabetes Hypertension CAD (coronary artery disease) Lung disease Mother Hypertension Rheumatoid arthritis CAD (coronary artery disease) Lung disease Sister CAD (coronary artery disease) Hypertension Lung disease Stroke Colon cancer dx'd at age 45 Family/Other Breast cancer paternal Grandmother Dementia Other Heart disease Hypercholesteremia Liver disease Migraines Denies family history of Ovarian cancer Clotting disorder Chronic kidney disease (CKD) Suicide Anesthesia complication Bleeding disorder Uterine cancer Social History Smoking and tobacco/nicotine status: heavy tobacco/nicotine user cigarettes Packs smoked per day: 1.5 Years cigarettes smoked: 20 [ Other cigarette details: Started at 22] Female Reproductive History: Spontaneous abortions: No Physical Exam Const: COMMON NORMALS: no acute distress, average body habitus, patient oriented x3, no limitations, healthy appearing, alert and well nourished Neck/C-Spine: COMMON NORMALS: no JVD Chest: COMMONS NORMALS: normal inspection of the chest and normal palpation of entire chest wall Resp: COMMON NORMALS: normal respiratory effort, No retractions, No use of accessory muscles and clear to auscultation bilaterally AUSCULTATION: clear to auscultation bilaterally Cardio: COMMON NORMALS: no JVD, regular rate, regular rhythm, S1 normal heart sound present, S2 normal heart sound present, No gallops present (Cardio), No clicks present (Cardio), No murmurs present (Cardio) and No rub (Cardio) RATE: regular rate RHYTHM: regular rhythm HEART SOUNDS: S1 normal heart sound present and S2 normal heart sound present GI: COMMON NORMALS: Normal to inspection, nondistended, normoactive bowel sounds present, Soft to palpation, non-tender, No hepatosplenomegaly present and no masses PALPATION: Yes Soft to palpation and Yes No hepatosplenomegaly present Neuro: COMMON NORMALS: patient oriented x3 SENSORIUM/ORIENTATION: Yes alert Course Vital Signs: Vital signs: Vital Signs Temperature 98 F 06/05/24 01:17 Pulse Rate 97 06/05/24 01:17 Respiratory Rate 18 06/05/24 01:17 Blood Pressure 197/97 06/05/24 01:17 Pulse Oximetry 97 06/05/24 01:17 MDM - GI Bleed Medical Decision Making Lab work was reviewed hemoglobin 13.3, otherwise lab work essentially unremarkable. Patient is O+, history also discussed with the patient. Patient says she would follow back up with [facility] and we will refer her to general surgery for potential colonoscopy. Medical Records I reviewed the patient's medical records. Lab Data I reviewed the patient's lab results. 06/05/24 01:59 06/05/24 01:59 Laboratory Results WBC 8.70 10^3/uL (3.29-11.43) 06/05/24 01:59 RBC 5.06 10^6/uL (3.85-5.65) 06/05/24 01:59 Hgb 13.30 g/dL (11.27-16.99) 06/05/24 01:59 Hct 41.8 % (36-47) 06/05/24 01:59 MCV 82.6 fl (85-98) L 06/05/24 01:59 MCH 26.3 pg (27-33) L 06/05/24 01:59 MCHC 31.8 g/dL (30-55) 06/05/24 01:59 RDW 15.2 % (12.1-15.1) H 06/05/24 01:59 Plt Count 299 10^3/cmm (157-399) 06/05/24 01:59 MPV 10.2 fL (7.4-10.4) 06/05/24 01:59 Neut % (Auto) 57.5 % 06/05/24 01:59 Lymph % (Auto) 28.7 % 06/05/24 01:59 [place] % (Auto) 10.9 % 06/05/24 01:59 Eos % (Auto) 2.1 % 06/05/24 01:59 Baso % (Auto) 0.5 % 06/05/24 01:59 Neut # (Auto) 5.00 10^3/uL (1.8-7.7) 06/05/24 01:59 Lymph # (Auto) 2.5 10^3/uL (0.8-4.8) 06/05/24 01:59 [place] # (Auto) 1.0 10^3/uL (0.2-0.9) H 06/05/24 01:59 Eos # (Auto) 0.2 10^3/uL (0.0-0.8) 06/05/24 01:59 Baso # (Auto) 0.0 10^3/uL (0.0-0.1) 06/05/24 01:59 Nucleated RBC % (auto) 0 % 06/05/24 01:59 Nucleated RBCs # 0.0 /100WBC 06/05/24 01:59 PT 12.40 SECONDS (12.1-14.9) 06/05/24 01:59 INR 0.87 (0.8-1.2) 06/05/24 01:59 Sodium 136 mmol/L (136-145) 06/05/24 01:59 Potassium 4.1 mmol/L (3.5-5.1) 06/05/24 01:59 Chloride 101 mmol/L (98-107) 06/05/24 01:59 Carbon Dioxide 23 mmol/L (22-29) 06/05/24 01:59 Anion Gap 16.1 (5-19) 06/05/24 01:59 BUN 11 mg/dL (6-20) 06/05/24 01:59 Creatinine 0.8 mg/dL (0.5-0.9) 06/05/24 01:59 GFR Calculation 78.3 mL/min (90-130) L 06/05/24 01:59 Glucose 98 mg/dL (65-115) 06/05/24 01:59 Calculated Osmolality 281 mOsm/kg (285-295) L 06/05/24 01:59 Calcium 8.7 mg/dL (8.5-10.5) 06/05/24 01:59 Total Bilirubin 0.2 mg/dL (0.15-1.2) 06/05/24 01:59 AST 15 U/L (0-32) 06/05/24 01:59 ALT 14 U/L (0-33) 06/05/24 01:59 Alkaline Phosphatase 126 U/L (35-105) H 06/05/24 01:59 Total Protein 7.2 g/dL (6.6-8.7) 06/05/24 01:59 Albumin 3.7 g/dL (3.5-5.2) 06/05/24 01:59 Globulin 3.5 g/dL (1.3-4.6) 06/05/24 01:59 Blood Type O Positive 06/05/24 02:14 Rho(D) Type Rh positive 06/05/24 02:14 Antibody Screen Negative 06/05/24 02:14 All radiology interpretation(s) finalized by discharge Discharge Plan Discharge Patient Disposition: Home Clinical Impression: Lower gastrointestinal hemorrhage Condition: Stable Prescriptions: No Action (DME) compressor, for nebulizer Device See Rx Instructions .Route Qty: 1 0RF Rx Instructions: As directed ibuprofen 800 mg tablet 800 mg PO Q8H PRN (Reason: Pain) albuterol sulfate 90 mcg/actuation HFA aerosol inhaler 2 puff inhalation Q6H PRN (Reason: shortness of breath or wheezing) Qty: 6.7 2RF cholecalciferol (vitamin D3) 250 mcg (10,000 unit) capsule See Rx Instructions PO DAILY Rx Instructions: 5,000IU orally daily; prednisone 20 mg tablet See Rx Instructions .ROUTE .COMPLEX Qty: 30 2RF Dose Instruction: TAKE ONE TABLET BY MOUTH DAILY NEEDED FOR rheumatoid arthritis Rx Instructions: TAKE ONE TABLET BY MOUTH DAILY NEEDED FOR rheumatoid arthritis (DME) nebulizer accessories Kit See Rx Instructions .Route Qty: 1 0RF Rx Instructions: As directed infliximab [Remicade] IV desvenlafaxine succinate [Pristiq] 100 mg tablet extended release 24 hr 100 mg PO DAILY Qty: 30 2RF potassium chloride 10 mEq capsule, extended release See Rx Instructions PO DAILY Qty: 120 2RF Rx Instructions: 20mEq-40mEq PO daily; spironolactone 100 mg tablet 100 mg PO BID Qty: 60 2RF fluticasone propion-salmeterol [Wixela Inhub] 250-50 mcg/dose blister with device 1 inh inhalation BID Qty: 60 6RF albuterol sulfate 2.5 mg /3 mL (0.083 %) solution for nebulization 2.5 mg inhalation QID PRN (Reason: shortness of breath or wheezing) Qty: 75 1RF Discharge Orders: Discharge ED (Routine); Ordered 06/05/24 Ordered By: Rashaad Mccallum Referrals: Michael Leger FNP-C [Primary Care Provider] - 1 week Patient Instructions: Gastrointestinal Bleeding (ED) Activity Restrictions/Additional Instructions: Thank you for choosing [facility] for your healthcare needs today. Please realize that you were seen in the emergency department and that we are providing you with an emergency medical screening exam and this may not be a complete and all exclusive of all testing and/or medical workup we may need to determine your element or severity of your illness. It is very important that you follow-up as instructed with your primary care provider or specialist for the additional evaluation and to discuss your medical treatment plan. You may return to the emergency department should you have concerns or if your condition changes or worsens in any way. Print Language: Hungarian Coding Level of Care Code ED Maintenance Instructor for Nai Arceo
[2024-06-05 02:14] LABS: Basophils % 0.5 %; Eosinophils # 0.2 10^3/uL (0.0-0.8); Eosinophils % 2.1 %; Hematocrit 41.8 % (36-47); Lymphocytes # 2.5 10^3/uL (0.8-4.8); Lymphocytes % 28.7 %; Mean Corpuscular HGB Conc 31.8 g/dL (30-55); Mean Corpuscular Hemoglobin 26.3 pg (27-33); Mean Corpuscular Volume 82.6 fl (85-98); Mean Platelet Volume 10.2 fL (7.4-10.4); Monocytes % 10.9 %; Neutrophils % 57.5 %; Nucleated Red Blood Cells % 0 %; Platelet Count 299 10^3/cmm (157-399); Red Blood Count 5.06 10^6/uL (3.85-5.65); Red Cell Distribution Width 15.2 % (12.1-15.1)
[2024-06-05 02:26] LABS: INR 0.87 (0.8-1.2)
[2024-06-05 02:30] LABS: Alanine Aminotransferase 14 U/L (0-33); Albumin Level 3.7 g/dL (3.5-5.2); Alkaline Phosphatase 126 U/L (35-105); Aspartate Amino Transferase 15 U/L (0-32); Blood Urea Nitrogen 11 mg/dL (6-20); Calcium 8.7 mg/dL (8.5-10.5); Carbon Dioxide 23 mmol/L (22-29); Chloride 101 mmol/L (98-107); Globulin 3.5 g/dL (1.3-4.6); Glomerular Filtration Rate 78.3 mL/min (90-130); Glucose 98 mg/dL (65-115); Osmolality Calculated 281 mOsm/kg (285-295); Sodium 136 mmol/L (136-145); Total Bilirubin 0.2 mg/dL (0.15-1.2); Total Protein 7.2 g/dL (6.6-8.7)
[2024-06-05 02:37] LABS: Anion Gap 16.1 (5-19); Potassium 4.1 mmol/L (3.5-5.1)
[2024-06-05 03:11] VITALS: BP 152/91; PULSE 89; O2SAT 91
--- NOTE | 2024-06-05 08:26 | DCPLANNER ---
messaged gen surg for er f/u
== END 2024-06-05 03:13 | disposition home or self-care (01) ==
PROVIDERS: Emergency Provider Emergency Medicine; PCP Nurse Practitioner
DX: K92.2 Gastrointestinal hemorrhage, unspecified (principal); F17.210 Nicotine dependence, cigarettes, uncomplicated
CPT/HCPCS: 36415; 80053; 85025; 85610; 86850; 86900; 99283

== ENCOUNTER 2024-06-18 10:45 | Oncology outpatient (recurring) (ONCR) | payer BC, MEDICAID, SELFPAY ==
[2024-06-18 11:22] VITALS: BP 128/79; PULSE 80; RESP 16; TEMP 36.6; O2SAT 100
[2024-06-18] MEDS: methylPREDNISolone sod succ 40 mg/mL INJ IVP (12:05)
[2024-06-18] MEDS: sodium chloride 0.9% 250 ML 75 ML IV (12:05)
[2024-06-18] MEDS: acetaminophen 325 mg Tablet 650 MG PO (12:06)
[2024-06-18] MEDS: diphenhydrAMINE 50 mg/mL SDV 1mL 25 MG IVP (12:09)
[2024-06-18] MEDS: infliximab-abda 800 MG in sodium chloride 0.9% 150 ML 250 MG IV (12:29)
[2024-06-18 14:12] VITALS: BP 123/75; PULSE 76; RESP 18; TEMP 36.6; O2SAT 99
== END 2024-07-08 23:59 | disposition home or self-care (01) ==
PROVIDERS: PCP Nurse Practitioner; Visit Provider Nurse Practitioner
DX: M05.79 Rheumatoid arthritis with rheumatoid factor of multiple sites without organ or systems involvement (principal); Z79.899 Other long term (current) drug therapy
CPT/HCPCS: 96375; 96413; A4222; J1200; J2919; J7050; J9999; Q5104

== ENCOUNTER 2024-06-19 08:19 | Outpatient (CLI) | payer BC, MEDICAID, SELFPAY ==
--- NOTE | 2024-06-19 09:00 | MM_ITS ---
WS: [id number] VIEWS: MLO, CC, and ML views LEFT breast.. 3D digital tomosynthesis is also included in this exam. Comparison made with prior exam of 09/24/2023. Findings: There are scattered areas of fibroglandular density. Small stable appearing mild residual nodule with stereotactic biopsy marker in the center seen at the 6 o'clock position in the LEFT breast. No architectural distortion or suspicious calcification. No enlargement of the nodule. The remainder of the LEFT breast is unremarkable. Regional ultrasound is recommended for further work-up. MM/MM diag LT tomosynthesis [id number] Impression: BI-RADS: 0 - Incomplete: Need additional imaging evaluation FOLLOW-UP: Need Additional Imaging This mammogram was also analyzed by the Computer Aided Detection System R2 Imag e [employer].
--- NOTE | 2024-06-19 11:30 | US_ITS ---
WS: [email or web address] Exam: US breast LT limited* [id number] Date/Time of Exam: 06/19/2024 9:57 AM Reason For Exam: R92.8 - Other abnormal and inconclusive findings on diagn... Regional ultrasound of the 6 o'clock position in the LEFT breast is performed. Comparison made to the previous study 10/23/2023. Small ovoid hypoechoic solid nodule containing fat noted at the 6 o'clock position is stable in appearance. A stereotactic biopsy marker is noted within the nodule. No other solid nodules or masses were seen in this region. Recommendations: Continue yearly screening mammography. US/US breast LT limited* [id number] IMPRESSION: 1. Stable appearing 6 x 8 x 2 mm hypoechoic solid nodule containing fat seen in the 6 o'clock position and contains a stereotactic biopsy marker. This does no t have suspicious appearance.
== END 2024-06-19 08:20 | disposition home or self-care (01) ==
PROVIDERS: PCP Nurse Practitioner; Visit Provider Nurse Practitioner
DX: R92.8 Other abnormal and inconclusive findings on diagnostic imaging of breast (principal); N63.25 Unspecified lump in the left breast, overlapping quadrants; R92.323 Mammographic fibroglandular density, bilateral breasts
CPT/HCPCS: 76642; 77061; G0279

== ENCOUNTER 2024-07-28 12:15 | Day surgery (SDC) | payer BC, MEDICAID, SELFPAY ==
[2024-07-28 13:00] VITALS: BP 120/103; PULSE 103; RESP 18; TEMP 36.1; O2SAT 92; BMI 50.2
[2024-07-28] MEDS: sodium chloride 0.9% 1,000 ML 15 ML IV (13:11)
--- NOTE | 2024-07-28 13:41 | P.ANESASSM_ITS ---
Pre-Anesthetic Assessment Height/Weight: Height 1.8 m Weight 163.293 kg Temp Pulse Resp BP Pulse Ox O2 Del Method 97.0 F L 103 H 18 120/103 92 Room Air 07/28/24 13:00 07/28/24 13:00 07/28/24 13:00 07/28/24 13:00 07/28/24 13:00 07/28/24 13:00 Operation Date: 07/28/24 14:00 Proposed Procedures p Colonoscopy 83803 G0105 K92.1(Not Applicable) - Raul Mcgill MD Familial anesthetic complications: none Was Beta Sonja taken within 24 hours: Yes Was Clonidine taken within 24 hours: N/A Last intake: Intake Last Liquid Date 07/27/24 Last Liquid Time 20:00 Last Solid Date 07/26/24 Last Solid Time 23:00 Social Tobacco (1.5ppd) and No alcohol Exam alert and oriented x 3 Airway Submandibular: within normal limits Cervical ROM: within normal limits Mallampati: Class II Dentition: false Pulmonary Asthma and Sleep Apnea CV/HEM Atrial Fibrillation (controlled with metoprolol) None reported Hepatic None reported GI None reported Metabolic Hyperlipidemia and Morbid Obesity [facility] Rheumatoid Arthritis Neuropsych Anxiety and Depression Anesthetic Plan ASA status: 3 Anesthesia: Anesthesia Evaluation and MAC Risk of > 500 ml blood loss (7ml/kg in children): No Medications/Allergies Home Medications ?Medication ?Instructions ?Recorded ?Confirmed ?Last Taken ?Type compressor, for nebulizer #1 ea 05/31/21 07/21/24 Unkn own Rx nebulizer accessories #1 ea 12/26/22 07/21/24 Unkn own Rx ibuprofen 800 mg tablet 800 mg PO Q8H PRN Pain 02/0807/28/24 07/27/24 History Held on 06/05/23. Instructions: Resume on 06/07/23. fluticasone 250 mcg-salmeterol 50 1 inh inhalation BID #60 ea 05/10/23 07/28/24 Unknown Rx mcg/dose blistr powdr for inhalation (Wixela Inhub) cholecalciferol (vitamin D3) 250 250 mcg PO DAILY 0907/0207/28/24 07/27/24 History mcg (10,000 unit) capsule albuterol sulfate 2.5 mg/3 mL 2.5 mg (3 mL) inhalation QID PRN 04/15/24 07/28/24 Unknown Rx (0.083 %) solution for nebulization shortness of breat h or wheezing #75 mL albuterol sulfate 90 mcg/actuation 2 puff inhalation Q 6H PRN 07/16/24 07/28/24 07/22/24 Rx aerosol inhaler shortness of breath or wheez ing #6.7 grams desvenlafaxine succinate 100 mg 100 mg PO DAILY #30 ta bs 07/16/24 07/28/24 07/27/24 Rx tablet,extended release 24 hr (Pristiq) metoprolol succinate 25 mg 25 mg PO DAILY #30 tabs 11/0207/28/24 07/28/24 Rx tablet,extended release 24 hr (Toprol XL) semaglutide (weight loss) 0.25 0.25 mg (0.5 mL) SUBCUT Q7D #2 mL 07/16/24 07/28/24 Unknown Rx mg/0.5 mL subcutaneous pen injector (Wegovy) spironolactone 100 mg tablet 100 mg PO BID #60 tabs 07/28/24 07/27/24 Rx infliximab 100 mg intravenous 800 mg IV Q45D M05.79 rh eumatoid 07/23/24 07/28/24 Unknown History solution (Remicade) arthritis potassium chloride 10 mEq 20 - 40 meq PO DAILY 5 07/28/24 07/27/24 History capsule,extended release prednisone 20 mg tablet 20 mg PO DAILY PRN rheumatoi d 07/23/24 07/28/24 07/27/24 History arthritis Allergies Allergy/AdvReac Type Severity Reaction Status Date / Time medroxyprogesterone (From Allergy Severe afib Verified 07/28/24 12:52 Depo-Provera) diphtheria,pertussis Allergy SWELLING Verified 07/28/24 12:52 (acellular),te (From Adacel(Tdap Adolesn/Adult)(PF)) insect venom Allergy excessive Verified 07/28/24 12:52 swelling leflunomide Allergy Heart Palp Verified 07/28/24 12:52 to ER and GI complaints Sulfa (Sulfonamide Allergy ALGY-Hives Verified 07/28/24 12:52 Antibiotics) methotrexate AdvReac Intermediate increased Verified 07/28/24 12:52 arthritis nodules faster tofacitinib (From Xeljanz) AdvReac Intermediate fatigue Verified 07/28/24 12:52 and nausea Current Medications Generic Name Dose Route Start Last Admin Trade Name Freq PRN Reason Stop Dose Admin Sodium Chloride 1,000 mls @ 15 mls/hr 07/28/24 12:34 07/28/24 13:11 Sodium Chloride 0.9% IV 07/29/24 12:33 15 mls/hr .Q24H PRN Administration COLONOSCOPY FLUIDS PFSH Anesthesia Medical History Obesity, morbid, BMI 40.0-49.9 Metabolic syndrome FH: cholecystectomy 02/15/21 No pertinent past medical history neghx: htn,dm,thyroid,dvt/pe PCP: Michael Leger Rheumatoid arthritis Atrial fibrillation No episodes since I started metoprolol Edema Anxiety and depression Surgical History History of appendectomy June [address] Nuñez [facility] History of total abdominal hysterectomy (~10/09/22) [facility], bilateral salpingectomy performed by Dr. Mcneill at [facility] in [place], [place] History of cholecystectomy (~01/2021) H/O: x 3 Family History Father Diabetes Hypertension CAD (coronary artery disease) Lung disease Mother Hypertension Rheumatoid arthritis CAD (coronary artery disease) Lung disease Sister CAD (coronary artery disease) Hypertension Lung disease Stroke Colon cancer dx'd at age 45 Family/Other Breast cancer paternal Grandmother Dementia Other Heart disease Hypercholesteremia Liver disease Migraines Denies family history of Ovarian cancer Clotting disorder Chronic kidney disease (CKD) Suicide Anesthesia complication Bleeding disorder Uterine cancer Social History (Updated 07/21/24 @ 10:54 by Lindsay Malcolm LPN) Smoking and tobacco/nicotine status: current every day tobacco/nicotine user cigarettes Packs smoked per day: 2 Years cigarettes smoked: 20 [ Other cigarette details: Started at 22] Female Reproductive History Spontaneous abortions: No Data Anesthesia Cardiac Studies: Echocardiogram 02/27/21 Holter Monitor 12/15/20
--- NOTE | 2024-07-28 13:45 | W.PM.OPSFHP ---
Same Day Surgery H&P Indication for Procedure/HPI DATE OF PROCEDURE: July 28, 2024 CHIEF COMPLAINT/INDICATIONFOR SURGICAL PROCEDURE: hematochezia PREOP DIAGNOSIS: hematochezia PLANNED PROCEDURE: Operation Date: 07/28/24 14:00 Proposed Procedures p Colonoscopy [id number] K92.1(Not Applicable) - Raul Mcgill MD Medications/Allergies* Home Medications ?Medication ?Instructions ?Recorded ?Confirmed ?Type ibuprofen 800 mg tablet 800 mg PO Q8H PRN Pain 02/08/23 07/28/24 History Held on 06/05/23. Instructions: Resume on 06/07/23. cholecalciferol (vitamin D3) 250 250 mcg PO DAILY 11/13/23 07/28/24 History mcg (10,000 unit) capsule infliximab 100 mg intravenous 800 mg IV Q45D M05.79 rheumatoid 07/23/24 07/28/24 History solution (Remicade) arthritis potassium chloride 10 mEq 20 - 40 meq PO DAILY 07/23/24 07/28/24 History capsule,extended release prednisone 20 mg tablet 20 mg PO DAILY PRN rheumatoid 07/23/24 07/28/24 History arthritis Allergies/Adverse Reactions Allergy/AdvReac Type Severity Reaction Status Date / Time medroxyprogesterone (From Allergy Severe afib Verified 07/28/24 12:52 Depo-Provera) diphtheria,pertussis Allergy SWELLING Verified 07/28/24 12:52 (acellular),te (From Adacel(Tdap Adolesn/Adult)(PF)) insect venom Allergy excessive Verified 07/28/24 12:52 swelling leflunomide Allergy Heart Palp Verified 07/28/24 12:52 to ER and GI complaints Sulfa (Sulfonamide Allergy ALGY-Hives Verified 07/28/24 12:52 Antibiotics) methotrexate AdvReac Intermediate increased Verified 07/28/24 12:52 arthritis nodules faster tofacitinib (From Xeljanz) AdvReac Intermediate fatigue Verified 07/28/24 12:52 and nausea Current Medications: Generic Name Dose Route Start Last Admin Trade Name Freq PRN Reason Stop Dose Admin Sodium Chloride 1,000 mls @ 15 mls/hr 07/28/24 12:34 07/28/24 13:11 Sodium Chloride 0.9% IV 07/29/24 12:33 15 mls/hr .Q24H PRN Administration COLONOSCOPY FLUIDS Pertinent History/Comorbid Conditions* Medical History (Updated 06/13/24 @ 00:00 by DEMIAN Hidalgo) Obesity, morbid, BMI 40.0-49.9 Metabolic syndrome FH: cholecystectomy 02/15/21 No pertinent past medical history neghx: htn,dm,thyroid,dvt/pe PCP: Michael Leger Rheumatoid arthritis Atrial fibrillation No episodes since I started metoprolol Edema Anxiety and depression Surgical History (Updated 06/21/23 @ 09:53 by Wale Nuñez DO) History of appendectomy June [address] Nuñez [facility] History of total abdominal hysterectomy (~10/09/22) PAPA, bilateral salpingectomy performed by Dr. Mcneill at [facility] in [place], [place] History of cholecystectomy (~01/2021) H/O: x 3 Family History (Updated 08/20/22 @ 09:35 by Joan Easley LPN) Rheumatoid arthritis Mother Liver disease Colon cancer Sister dx'd at age 45 Diabetes Father CAD (coronary artery disease) Father Mother Sister Dementia Grandmother Heart disease Migraines Hypercholesteremia Breast cancer Family/Other paternal Lung disease Father Mother Sister Hypertension Father Mother Sister Stroke Sister Denies family history of Ovarian cancer Clotting disorder Chronic kidney disease (CKD) Suicide Anesthesia complication Bleeding disorder Uterine cancer Social History Smoking and tobacco/nicotine status: current every day tobacco/nicotine user cigarettes Packs smoked per day: 2 Years cigarettes smoked: 20 [ Other cigarette details: Started at 22] Pertinent Exam Findings alert, oriented x 3, clear to auscultation bilaterally, regular rate & rhythm and procedure specific exam findings abdomen soft, nt, nd Recommendations Risks and benefits of procedure reviewed Surgery/Procedure today Coding Level of Care Code Acute Code for Anandg Fwd
[2024-07-28 14:33] VITALS: BP 111/79; PULSE 96; RESP 19; TEMP 36.1; O2SAT 94
[2024-07-28 14:50] VITALS: BP 114/82; PULSE 102; RESP 18; O2SAT 94
--- NOTE | 2024-07-28 15:00 | ANE.PACU2 ---
Inpatient post-anesthesia follow up: Airway intact: Yes Vital signs: Temperature 97 F Pulse Rate 102 Respiratory Rate 18 Blood Pressure 114/82 Pulse Oximetry 94 Oxygen Delivery Me thod Room Air Oxygen Flow Rate 2 Fraction of Inspir ed Oxygen Hydration adequate: Yes Nausea and vomiting: No Pain level: 1 Mental status: Baseline
== END 2024-07-28 15:02 | disposition home or self-care (01) ==
PROVIDERS: PCP Nurse Practitioner; Visit Provider Student in an Organized Health Care Education/Training Program
PROC: 0DJD8ZZ Inspection of Lower Intestinal Tract, Via Natural or Artificial Opening Endoscopic (ICD-10-PCS; CPT 45378; principal; 2024-07-28 14:00)
DX: K64.4 Residual hemorrhoidal skin tags (principal); K92.1 Melena; I48.91 Unspecified atrial fibrillation; E78.5 Hyperlipidemia, unspecified; E66.01 Morbid (severe) obesity due to excess calories; F17.210 Nicotine dependence, cigarettes, uncomplicated; M06.9 Rheumatoid arthritis, unspecified; Z68.43 Body mass index [BMI] 50.0-59.9, adult; Z79.85 Long-term (current) use of injectable non-insulin antidiabetic drugs; Z79.899 Other long term (current) drug therapy; Z88.2 Allergy status to sulfonamides; Z88.8 Allergy status to other drugs, medicaments and biological substances; Z80.0 Family history of malignant neoplasm of digestive organs; Z79.620 Long term (current) use of immunosuppressive biologic
CPT/HCPCS: 45378; J2704; J7030

== ENCOUNTER 2024-08-20 07:49 | Oncology outpatient (recurring) (ONCR) | payer BC, MEDICAID, SELFPAY ==
[2024-08-20 08:42] LABS: Basophils % 0.3 %; Eosinophils # 0.3 10^3/uL (0.0-0.8); Eosinophils % 2.9 %; Hematocrit 41.6 % (36-47); Lymphocytes # 2.7 10^3/uL (0.8-4.8); Lymphocytes % 25.7 %; Mean Corpuscular HGB Conc 31.7 g/dL (30-55); Mean Corpuscular Hemoglobin 26.3 pg (27-33); Mean Platelet Volume 10.2 fL (7.4-10.4); Monocytes # 0.9 10^3/uL (0.2-0.9); Monocytes % 9.1 %; Neutrophils # 6.36 10^3/uL (1.8-7.7); Neutrophils % 61.4 %; Nucleated Red Blood Cells % 0 %; Platelet Count 339 10^3/cmm (157-399); Red Blood Count 5.01 10^6/uL (3.85-5.65); Red Cell Distribution Width 15.7 % (12.1-15.1); White Blood Count 10.35 10^3/uL (3.29-11.43)
[2024-08-20 08:50] LABS: Erythrocyte Sedimentation Rate 27 mm/hr (0-15)
[2024-08-20] MEDS: sodium chloride 0.9% 250 ML 75 ML IV (08:50)
[2024-08-20] MEDS: diphenhydrAMINE 50 mg/mL SDV 1mL 25 MG IVP (08:51)
[2024-08-20] MEDS: methylPREDNISolone sod succ 40 mg/mL INJ IVP (08:51)
[2024-08-20] MEDS: acetaminophen 325 mg Tablet 650 MG PO (08:52)
[2024-08-20 09:01] LABS: Alanine Aminotransferase 19 U/L (0-33); Albumin Level 3.5 g/dL (3.5-5.2); Alkaline Phosphatase 129 U/L (35-105); Aspartate Amino Transferase 13 U/L (0-32); Bilirubin Direct 0.08 mg/dL (0.00-0.30); Globulin 3.2 g/dL (1.3-4.6); Glomerular Filtration Rate 134.7 mL/min (90-130); Total Bilirubin 0.2 mg/dL (0.15-1.2); Total Protein 6.7 g/dL (6.6-8.7)
[2024-08-20 09:05] VITALS: BP 145/79; PULSE 64; RESP 17; TEMP 36.5; O2SAT 97
[2024-08-20] MEDS: infliximab-abda 800 MG in sodium chloride 0.9% 150 ML 230 MG IV (09:27)
== END 2024-09-07 23:59 | disposition home or self-care (01) ==
LOC: ONCMED 07:50
PROVIDERS: Internal Medicine Rheumatology; PCP Nurse Practitioner; Visit Provider Nurse Practitioner
DX: M05.79 Rheumatoid arthritis with rheumatoid factor of multiple sites without organ or systems involvement (principal); Z79.899 Other long term (current) drug therapy
CPT/HCPCS: 80076; 82565; 85025; 85651; 96375; 96413; A4222; J1200; J2919; J7050; J9999; Q5104

== ENCOUNTER 2024-10-08 13:11 | Oncology outpatient (recurring) (ONCR) | payer BC, MEDICAID, SELFPAY ==
[2024-10-08 13:25] VITALS: BP 140/95; PULSE 79; TEMP 35.8; O2SAT 96
[2024-10-08] MEDS: diphenhydrAMINE 50 mg/mL SDV 1mL 25 MG IVP (14:00)
[2024-10-08] MEDS: methylPREDNISolone sod succ 40 mg/mL INJ IVP (14:07)
[2024-10-08] MEDS: infliximab-abda 800 MG in sodium chloride 0.9% 150 ML 250 MG IV (14:37)
[2024-10-08 15:48] VITALS: BP 133/73; PULSE 71; O2SAT 96
== END 2024-10-08 23:59 | disposition home or self-care (01) ==
PROVIDERS: PCP Nurse Practitioner; Visit Provider Nurse Practitioner
DX: M05.79 Rheumatoid arthritis with rheumatoid factor of multiple sites without organ or systems involvement (principal); Z79.899 Other long term (current) drug therapy; R00.2 Palpitations
CPT/HCPCS: 80053; 96375; 96413; A4222; J1200; J2919; J7050; J9999; Q5104

== ENCOUNTER 2024-11-19 08:49 | Oncology outpatient (recurring) (ONCR) | payer BC, MEDICAID, SELFPAY ==
[2024-11-19 09:36] VITALS: BP 194/76; PULSE 87; RESP 16; TEMP 36.1; O2SAT 98
[2024-11-19] MEDS: methylPREDNISolone sod succ 40 mg/mL INJ IVP (09:51)
[2024-11-19] MEDS: diphenhydrAMINE 50 mg/mL SDV 1mL 25 MG IVP (09:55)
[2024-11-19] MEDS: infliximab-abda 800 MG in sodium chloride 0.9% 150 ML 250 MG IV (10:46)
[2024-11-19 12:12] VITALS: BP 150/88; PULSE 73; O2SAT 95
== END 2024-12-08 23:59 | disposition home or self-care (01) ==
PROVIDERS: PCP Nurse Practitioner; Visit Provider Nurse Practitioner
DX: M05.79 Rheumatoid arthritis with rheumatoid factor of multiple sites without organ or systems involvement (principal); Z79.899 Other long term (current) drug therapy
CPT/HCPCS: 96375; 96413; A4222; J1200; J2919; J7050; J9999; Q5104

== ENCOUNTER → 2024-12-24 11:43 | Outpatient (BNVA) | payer BC, MEDICAID, SELFPAY | PROVIDERS: PCP Nurse Practitioner; Visit Provider Nurse Practitioner | DX: E55.9 Vitamin D deficiency, unspecified (principal); E88.810 Metabolic syndrome | CPT/HCPCS: 80053; 82306; 82607; 85025; 85651; 86140 ==

== ENCOUNTER 2024-12-31 08:31 | Oncology outpatient (recurring) (ONCR) | payer BC, MEDICAID, SELFPAY ==
[2024-12-31 08:45] VITALS: BP 133/83; PULSE 73; RESP 16; TEMP 36.7; O2SAT 99
[2024-12-31] MEDS: diphenhydrAMINE 50 mg/mL SDV 1mL 25 MG IVP (09:03)
[2024-12-31] MEDS: methylPREDNISolone sod succ 40 mg/mL INJ IVP (09:06)
[2024-12-31] MEDS: INFLIXIMAB IV (09:33)
[2024-12-31] MEDS: SODIUM CHLORIDE 0.9% IV (09:33)
[2024-12-31 11:38] VITALS: BP 124/77; PULSE 77; RESP 18; TEMP 36.6; O2SAT 99
== END 2025-01-08 23:59 | disposition home or self-care (01) ==
PROVIDERS: PCP Nurse Practitioner; Visit Provider Nurse Practitioner
DX: M05.79 Rheumatoid arthritis with rheumatoid factor of multiple sites without organ or systems involvement (principal); Z79.899 Other long term (current) drug therapy; Z79.620 Long term (current) use of immunosuppressive biologic
CPT/HCPCS: 96375; 96413; A4222; J1200; J1745; J2919; J7050; J9999

== ENCOUNTER → 2025-01-27 08:43 | Outpatient (BNVA) | payer BC, MEDICAID, SELFPAY | PROVIDERS: PCP Nurse Practitioner; Visit Provider Nurse Practitioner | DX: R73.9 Hyperglycemia, unspecified (principal) | CPT/HCPCS: 80048; 83036; 85025 ==

== ENCOUNTER 2025-01-28 12:37 | Oncology outpatient (recurring) (ONCR) | payer BC, MEDICAID, SELFPAY ==
--- NOTE | 2025-01-28 12:45 | USCV_ITS ---
Bella Owusu Age: 44 Gender: F : 1980 Exam Date: 01/28/2025 12:50 Ordering Phys: Michael Leger Technologist: [place] [facility] [place]: [place] LEG SWELLING PROCEDURES: Venous duplex imaging was performed in only the left lower extremity. The following venous structures were evaluated: common femoral vein, profunda vein, proximal portion of the greater saphenous vein, superficial femoral vein, and the popliteal vein. In addition, the posterior tibial and peroneal trunk were evaluated. FINDINGS: Normal 2-D Doppler and augmentation and compressibility throughout the lower extremity venous structures. Additional imaging through the proximal calf veins also reveals no thrombus. Limited evaluation of the greater saphenous vein is patent with no thrombus. CONCLUSIONS No evidence of left lower extremity DVT. Juan A Sainz MD (Electronically Signed) Final Date: 28 January 2025 16:09 S
== END 2025-02-07 23:59 | disposition home or self-care (01) ==
LOC: ONCMED 12:38
PROVIDERS: PCP Nurse Practitioner; Visit Provider Nurse Practitioner
DX: M05.79 Rheumatoid arthritis with rheumatoid factor of multiple sites without organ or systems involvement (principal); Z79.899 Other long term (current) drug therapy; Z79.620 Long term (current) use of immunosuppressive biologic; M79.662 Pain in left lower leg
CPT/HCPCS: 93971

== ENCOUNTER 2025-02-11 08:57 | Oncology outpatient (recurring) (ONCR) | payer BC, MEDICAID, SELFPAY ==
[2025-02-11] MEDS: diphenhydrAMINE 50 mg/mL SDV 1mL 25 MG IVP (10:18)
[2025-02-11] MEDS: methylPREDNISolone sod succ 40 mg/mL INJ IVP (10:21)
[2025-02-11] MEDS: infliximab-abda 800 MG in sodium chloride 0.9% 150 ML 150 MG IV (10:58)
[2025-02-11 12:06] VITALS: BP 158/88; PULSE 80; TEMP 36.6; O2SAT 98
== END 2025-03-10 23:59 | disposition home or self-care (01) ==
PROVIDERS: PCP Nurse Practitioner; Visit Provider Nurse Practitioner
DX: M05.79 Rheumatoid arthritis with rheumatoid factor of multiple sites without organ or systems involvement (principal); Z79.899 Other long term (current) drug therapy; Z79.620 Long term (current) use of immunosuppressive biologic
CPT/HCPCS: 96375; 96413; A4222; J1200; J2919; J7050; J9999; Q5104

== ENCOUNTER 2025-02-16 22:02 | Emergency (ER) | payer BC, SELFPAY ==
[2025-02-16 22:13] VITALS: BP 145/87; PULSE 88; RESP 20; TEMP 36.8; O2SAT 97; BMI 50.2
--- NOTE | 2025-02-16 22:16 | ECG_ITS ---
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 Measurements Intervals [place] Rate: 87 P: 61 IA: 174 QRS: 61 QRSD: 80 T: 66 QT: 341 QTc: 410 Interpretive Statements SINUS RHYTHM LOW QRS VOLTAGE IN PRECORDIAL LEADS [QRS DEFLECTION < 1.0 mV IN CHEST LEADS] Compared to ECG 01/23/2023 21:01:32 Low QRS voltage now present Sinus tachycardia no longer present T-wave abnormality no longer present Electronically Signed On 02-18-2025 17:59:18 RN PATIENT SERVICES by Angelina Rosado M.D. [email or web address]
--- NOTE | 2025-02-16 22:41 | XRR_ITS ---
PROCEDURE INFORMATION: Exam: XR Chest Exam date and time: 02/16/2025 11:13 PM Age: 44 years old Clinical indication: Pain; Angina pectoris; Additional info: Chest pain TECHNIQUE: Imaging protocol: Radiologic exam of the chest. Views: 1 view. COMPARISON: CT chest con [id number] 03/13/2023 12:04 PM FINDINGS: Lungs: Unremarkable. No consolidation. Pleural spaces: Unremarkable. No pleural effusion. No pneumothorax. Heart/Mediastinum: Unremarkable. No cardiomegaly. Bones/joints: Unremarkable. XR/XR chest 1V portable [id number] IMPRESSION: No acute findings.
[2025-02-16 22:49] LABS: Hematocrit 47.6 % (36-47); Hemoglobin 15.20 g/dL (11.27-16.99); Mean Corpuscular HGB Conc 31.9 g/dL (30-55); Mean Corpuscular Hemoglobin 28.1 pg (27-33); Mean Corpuscular Volume 88.0 fl (85-98); Platelet Count 367 10^3/cmm (157-399); Red Blood Count 5.41 10^6/uL (3.85-5.65); White Blood Count 12.87 10^3/uL (3.29-11.43)
[2025-02-16 23:07] LABS: HCG, Serum Qual Negative (Negative)
--- NOTE | 2025-02-16 23:29 | ED_ITS ---
HPI - Chest Pain 2 General: Chief Complaint: Chest Pain Stated Complaint: Palpatations Time Seen by Provider: 02/16/25 23:25 History of Present Illness: 44-year-old female with a history of mor bid obesity, metabolic syndrome, A-fib in the past, hypertension, asthma, anxiety and depression who presents the emergency room with palpitations and chest discomfort. She says it felt a bit like when she had atrial fibrillation in the past. This was several years ago when she started metoprolol she has not had it since. She is in a regular sinus rhythm here. No fevers. No cough. No abdominal pain. Blood pressure and heart rate are normal here. Related Data Home Medications ?Medication ?Instructions ?Recorded ?Confirmed ibuprofen 800 mg tablet 800 mg PO Q8H PRN Pain 02/0802/01/25 cholecalciferol (vitamin D3) 250 250 mcg PO DAILY 07/0202/01/25 mcg (10,000 unit) capsule infliximab 100 mg intravenous 800 mg IV Q45D M05.79 rh eumatoid 07/23/24 02/01/25 solution (Remicade) arthritis potassium chloride 10 mEq 20 - 40 meq PO DAILY 5 02/01/25 capsule,extended release prednisone 20 mg tablet 20 mg PO DAILY PRN rheumatoi d 07/23/24 02/01/25 arthritis Previous Rx's ?Medication ?Instructions ?Recorded compressor, for nebulizer #1 ea 05/31/21 nebulizer accessories #1 ea 12/26/22 desvenlafaxine succinate 100 mg 100 mg PO DAILY #30 ta bs 12/24/24 tablet,extended release 24 hr (Pristiq) metoprolol succinate 50 mg 50 mg PO DAILY #30 tabs tablet,extended release 24 hr (Toprol XL) albuterol sulfate 2.5 mg/3 mL 2.5 mg (3 mL) inhalation QID PRN 01/27/25 (0.083 %) solution for nebulization shortness of breat h or wheezing #75 mL albuterol sulfate 90 mcg/actuation 2 puff inhalation Q 6H PRN 01/27/25 aerosol inhaler shortness of breath or wheez ing #6.7 grams spironolactone 100 mg tablet 100 mg PO QAM #30 tabs prednisone 5 mg tablet See Rx Instructions PO .COMP EDWIN 02/01/25 PRN joint pain flare #30 tabs Lactobacillus acidophilus and See Rx Instructions PO . COMPLEX 02/02/25 rhamnosus 15 billion cell capsule #60 caps (Probiotic) amoxicillin 500 mg-potassium 1 tab PO Q12H #20 tabs clavulanate 125 mg tablet (Augmentin) Allergies Allergy/AdvReac Type Severity Reaction Status Date / Time medroxyprogesterone (From Allergy Severe afib Verified 02/01/25 11:42 Depo-Provera) diphtheria,pertussis Allergy SWELLING Verified 02/01/25 11:42 (acellular),te (From Adacel(Tdap Adolesn/Adult)(PF)) insect venom Allergy excessive Verified 02/01/25 11:42 swelling leflunomide Allergy Heart Palp Verified 02/01/25 11:42 to ER and GI complaints Sulfa (Sulfonamide Allergy ALGY-Hives Verified 02/01/25 11:42 Antibiotics) methotrexate AdvReac Intermediate increased Verified 02/01/25 11:42 arthritis nodules faster tofacitinib (From Xeljanz) AdvReac Intermediate fatigue Verified 02/01/25 11:42 and nausea Review of Systems 2 Narrative: Constitutional symptoms: Negative except as documented in HPI. Skin symptoms: Negative except as documented in HPI. Eye symptoms: Negative except as documented in HPI. ENMT symptoms: Negative except as documented in HPI. Respiratory symptoms: Negative except as documented in HPI. Cardiovascular symptoms: Negative except as documented in HPI. Gastrointestinal symptoms: Negative except as documented in HPI. Genitourinary symptoms: Negative except as documented in HPI. Musculoskeletal symptoms: Negative except as documented in HPI. Neurologic symptoms: Negative except as documented in HPI. Psychiatric symptoms: Negative except as documented in HPI. Endocrine symptoms: Negative except as documented in HPI. PFSH ED 2 PFSH: Medical History (Updated 02/17/25 @ 00:27 by Lauren Andersen MD) Obesity, morbid, BMI 40.0-49.9 Metabolic syndrome FH: cholecystectomy 02/15/21 No pertinent past medical history neghx: htn,dm,thyroid,dvt/pe PCP: Michael Leger Rheumatoid arthritis Atrial fibrillation No episodes since I started metoprolol Edema Anxiety and depression Surgical History History of appendectomy June [address] Joaquin LANGFORD History of total abdominal hysterectomy (~10/09/22) PAPA, bilateral salpingectomy performed by Dr. Mcneill at [facility] in [place], [place] History of cholecystectomy (~01/2021) H/O: x 3 Family History Father Diabetes Hypertension CAD (coronary artery disease) Lung disease Mother Hypertension Rheumatoid arthritis CAD (coronary artery disease) Lung disease Sister CAD (coronary artery disease) Hypertension Lung disease Stroke Colon cancer dx'd at age 45 Family/Other Breast cancer paternal Grandmother Dementia Other Heart disease Hypercholesteremia Liver disease Migraines Denies family history of Ovarian cancer Clotting disorder Chronic kidney disease (CKD) Suicide Anesthesia complication Bleeding disorder Uterine cancer Social History Smoking and tobacco/nicotine status: current every day tobacco/nicotine user cigarettes Packs smoked per day: 2 Years cigarettes smoked: 20 [ Other cigarette details: Started at 22] Alcohol intake: unknown Substance/Drug Use: unknown Adopted: No Caregiver/support person: No Lives independently: Yes Household members: children Housing: House Marital status: Number of children: 3 service: No Current occupational status: employed 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 Skin: Warm, dry. Head: Normocephalic, atraumatic. Neck: Supple, trachea midline. Eye: Extraocular movements are intact. Ears, nose, mouth and throat: mucosa moist. Cardiovascular: Regular, Normal peripheral perfusion. Respiratory: Lungs are clear to auscultation, respirations are non-labored, breath sounds are equal, Symmetrical chest wall expansion. Gastrointestinal: Soft, Nontender, Non distended Musculoskeletal: Normal ROM, no deformity. Neurological: Alert and oriented, No focal neurological deficit observed. Psychiatric: Cooperative, appropriate mood & affect. 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 44-year-old female with a history of morbid obesity, metabolic syndrome, A-fib in the past, hypertension, asthma, anxiety and depression I reviewed the patient's current home meds Patient takes metoprolol. She is on Remicade for arthritis Alternate historians: None Differential diagnosis: including but not limited to and based on the above HPI, review of systems and physical exam: Orders placed to evaluate differential diagnosis based on the above differential, HPI and physical exam EKG: Time 2216. Rate 87. Normal sinus rhythm, No ST-T changes, no ectopy, normal [place] & QRS intervals, This was reviewed and interpreted by myself the ER physician at 2220 Chest x-ray: No acute process. No infiltrate. No pneumothorax. This was reviewed and interpreted by myself the emergency room physician. I also reviewed the radiology report. Lab Review: Laboratory results were reviewed and interpreted by myself the emergency room physician. No leukocytosis. No anemia. No renal failure. Troponin is negative. Urinalysis is negative. Clinical decision support: Heart score is 1. Reexamination: Patient remained stable. No increased work of breathing. No altered mental status. No focal motor deficits. Assessment and plan: Palpitations Noncardiac chest pain - Discharged home - Discussed plan with patient. Answered any questions. - Evaluation and treatment of this problem were appropriate in the emergency setting. Lab Data 02/16/25 22:42 02/16/25 22:42 Radiology Impressions Chest X-Ray 02/16/25 22:41 IMPRESSION: No acute findings. Laboratory Results WBC 12.87 10^3/uL (3.29-11.43) H 02/16/25 22:42 RBC 5.41 10^6/uL (3.85-5.65) 02/16/25 22:42 Hgb 15.20 g/dL (11.27-16.99) 02/16/25 22:42 Hct 47.6 % (36-47) H 02/16/25 22:42 MCV 88.0 fl (85-98) 02/16/25 22:42 MCH 28.1 pg (27-33) 02/16/25 22:42 MCHC 31.9 g/dL (30-55) 02/16/25 22:42 RDW 14.4 % (12.1-15.1) 02/16/25 22:42 Plt Count 367 10^3/cmm (157-399) 02/16/25 22:42 MPV 10.2 fL (7.4-10.4) 02/16/25 22:42 Lymph % (Auto) Not Reportable 02/16/25 22:42 Nash % (Auto) Not Reportable 02/16/25 22:42 Lymph # (Auto) Not Reportable 02/16/25 22:42 Nash # (Auto) Not Reportable 02/16/25 22:42 Total Counted 100 (0-100) 02/16/25 22:42 Atypical Lymphs % 7.0 % (0-5) H 02/16/25 22:42 Segmented Neutrophils 60 % 02/16/25 22:42 Band Neutrophils Not Reportable 02/16/25 22:42 Absolute Lymphocytes 4.1 10^3/cmm (1.2-3.4) H 02/16/25 22:42 Lymphocytes (Manual) 25 % 02/16/25 22:42 Monocytes (Manual) 7.0 % 02/16/25 22:42 Absolute Monocytes 0.9 10^3/cmm (0.1-0.6) H 02/16/25 22:42 Eosinophils (Manual) 1 % 02/16/25 22:42 Absolute Eosinophils 0.1 10^3/cmm (0.0-0.7) 02/16/25 22:42 Basophils (Manual) 0.0 % 02/16/25 22: Absolute Basophils 0.0 10^3/cmm (0.0-0.2) 02/16/25 22:42 Platelet Estimate Normal (Normal) 02/16/25 22:42 Sodium 139 mmol/L (136-145) 02/16/25 22:42 Potassium 3.7 mmol/L (3.5-5.1) 02/16/25 22:42 Chloride 102 mmol/L (98-107) 02/16/25 22:42 Carbon Dioxide 26 mmol/L (22-29) 02/16/25 22:42 Anion Gap 14.7 (5-19) 02/16/25 22:42 BUN 8 mg/dL (6-20) 02/16/25 22:42 Creatinine 0.6 mg/dL (0.5-0.9) 02/16/25 22:42 GFR Calculation 108.6 mL/min (90-130) 02/16/25 22:42 Glucose 94 mg/dL (65-115) 02/16/25 22:42 Calculated Osmolality 286 mOsm/kg (285-295) 02/16/25 22:42 Calcium 9.3 mg/dL (8.5-10.5) 02/16/25 22:42 Magnesium 2.1 mg/dL (1.7-2.3) 02/16/25 22:42 Total Bilirubin 0.2 mg/dL (0.15-1.2) 02/16/25 22:42 AST 19 U/L (0-32) 02/16/25 22:42 ALT 24 U/L (0-33) 02/16/25 22:42 Alkaline Phosphatase 134 U/L (35-105) H 02/16/25 22:42 Troponin T Baseline < 6 ng/L (0-10) 02/16/25 22:42 Total Protein 7.6 g/dL (6.6-8.7) 02/16/25 22:42 Albumin 4.4 g/dL (3.5-5.2) 02/16/25 22:42 Globulin 3.2 g/dL (1.3-4.6) 02/16/25 22:42 TSH 1.80 uIU/mL (0.27-4.20) 02/16/25 22:42 HCG, Qual Negative (Negative) 02/16/25 22:42 Urine Color Yellow (Yellow) 02/16/25 23:55 Urine Appearance Clear (CLEAR) 02/16/25 23:55 Urine pH 5.5 (5-7) 02/16/25 23:55 Ur Specific [place] 1.008 (1.005-1.030) 02/16/25 23:55 Urine Protein Negative (Negative) 02/16/25 23:55 Urine Glucose (UA) Negative (Normal) 02/16/25 23:55 Urine Ketones Negative (Negative) 02/16/25 23:55 Urine Blood Negative (Negative) 02/16/25 23:55 Urine Nitrate Negative (Negative) 02/16/25 23:55 Urine Bilirubin Negative (Negative) 02/16/25 23:55 Urine Urobilinogen 0.2 mg/dL (Negative) 02/16/25 23:55 Ur Leukocyte Esterase Negative (Negative) 02/16/25 23:55 Urine RBC 0-2 /hpf (0-2) 02/16/25 23:55 Urine WBC 0-5 /hpf (0-5) 02/16/25 23:55 Ur Squamous Epith Cells 6-10 /hpf (0-5) 02/16/25 23:55 Urine Bacteria None seen /hpf (NONE) 02/16/25 23:55 Hyaline Casts 0-4 /lpf H 02/16/25 23:55 Urine Opiates Screen Negative ng/mL (Negative) 02/16/25 23:55 Ur Barbiturates Screen Negative ng/mL (Negative) 02/16/25 23:55 Ur Phencyclidine Scrn Negative ng/mL (Negative) 02/16/25 23:55 Ur Amphetamines Screen Negative ng/mL (Negative) 02/16/25 23:55 U Benzodiazepines Scrn Negative ng/mL (Negative) 02/16/25 23:55 Urine Cocaine Screen Negative ng/mL (Negative) 02/16/25 23:55 U Marijuana (THC) Screen Negative ng/mL (Negative) 02/16/25 23:55 All radiology interpretation(s) finalized by discharge Clincial Decision Support The following clinical decision support tools were used to aid in care of the patient HEART Score -> History: Slightly Suspicous, EKG: Normal, Age: Less than 45 yrs, Risk Factors: 1 or 2 Risk Factors, Troponin: Baseline Trop <16 ng/L. Resulting HEART Score: 1. Discharge Plan Discharge Patient Disposition: Home Clinical Impression: Palpitations, Chest pain Condition: Stable Prescriptions: No Action (DME) compressor, for nebulizer Device See Rx Instructions .Route Qty: 1 0RF Rx Instructions: As directed ibuprofen 800 mg tablet 800 mg PO Q8H PRN (Reason: Pain) cholecalciferol (vitamin D3) 250 mcg (10,000 unit) capsule 250 mcg PO DAILY Rx Instructions: 5,000IU orally daily; desvenlafaxine succinate [Pristiq] 100 mg tablet extended release 24 hr 100 mg PO DAILY Qty: 30 2RF metoprolol succinate [Toprol XL] 50 mg tablet extended release 24 hr 50 mg PO DAILY Qty: 30 2RF (DME) nebulizer accessories Kit See Rx Instructions .Route Qty: 1 0RF Rx Instructions: As directed prednisone 5 mg tablet See Rx Instructions PO .COMPLEX PRN (Reason: joint pain flare) Qty: 30 1RF Rx Instructions: take 3tabs daily x1wk then 2tabs daily x2wk, then 1 tab daily x2wk then take 1 tab QOD x2wk then stop spironolactone 100 mg tablet 100 mg PO QAM Qty: 30 2RF albuterol sulfate 90 mcg/actuation HFA aerosol inhaler 2 puff inhalation Q6H PRN (Reason: shortness of breath or wheezing) Qty: 6.7 2RF albuterol sulfate 2.5 mg /3 mL (0.083 %) solution for nebulization 2.5 mg inhalation QID PRN (Reason: shortness of breath or wheezing) Qty: 75 1RF amoxicillin-pot clavulanate [Augmentin] 500-125 mg tablet 1 tab PO Q12H Qty: 20 0RF Probiotic 15 billion cell capsule See Rx Instructions PO .COMPLEX Qty: 60 0RF Rx Instructions: 15 billion cell capsule orally 2 times day; potassium chloride 10 mEq capsule, extended release 20 - 40 meq PO DAILY Rx Instructions: 20mEq-40mEq PO daily; prednisone 20 mg tablet 20 mg PO DAILY PRN (Reason: rheumatoid arthritis) Rx Instructions: TAKE ONE TABLET BY MOUTH DAILY NEEDED FOR rheumatoid arthritis infliximab [Remicade] 100 mg recon soln 800 mg IV Q45D Rx Instructions: Infusion 800mg every 6 weeks. Discharge Orders: Discharge ED (Routine); Ordered 02/17/25 Ordered By: Lauren Andersen Referrals: Michael Leger, [facility] [Primary Care Provider, Family Practice] Discharge Diet: Usual diet Discharge Activity: Increase activity as tolerated Patient Instructions: Chest Pain (ED), Heart Palpitations (ED), Opioid Safety, Pain Management, Patient Portal & [place] Instructions Activity Restrictions/Additional Instructions: Thank you for choosing [facility] for your healthcare needs today. You have been screened and evaluated and felt safe for discharge. Health conditions do change or evolve sometimes and as such it is important that you follow up with your Primary Doctor to be re checked, 3-5 days is a general good time frame for follow up. You are always welcome to return to the ED for re assessment if your symptoms are worsening or you have new concerns Print Language: Citizen [place] Coding Level of Care Code ED Kiln Feeder for Chg Fwd Heart Score HEART Score Components History: Slightly Suspicous EKG: Normal Age: Less than 45 yrs Risk Factors: 1 or 2 Risk Factors Troponin: Baseline Trop <16 ng/L HEART Score RESULT HEART Score: 1
[2025-02-16 23:31] LABS: Slide Review Slide Review Perform
[2025-02-16 23:32] LABS: Absolute Segmented Neutrophil 7.7 10/cmm (1.6-7.1); Atypical Lymphs 7.0 % (0-5); Total Cells Counted 100 (0-100); Troponin(5th) Baseline < 6 ng/L (0-10)
[2025-02-16 23:41] LABS: Alanine Aminotransferase 24 U/L (0-33); Albumin Level 4.4 g/dL (3.5-5.2); Alkaline Phosphatase 134 U/L (35-105); Anion Gap 14.7 (5-19); Aspartate Amino Transferase 19 U/L (0-32); Blood Urea Nitrogen 8 mg/dL (6-20); Calcium 9.3 mg/dL (8.5-10.5); Carbon Dioxide 26 mmol/L (22-29); Chloride 102 mmol/L (98-107); Globulin 3.2 g/dL (1.3-4.6); Glucose 94 mg/dL (65-115); Magnesium 2.1 mg/dL (1.7-2.3); Osmolality Calculated 286 mOsm/kg (285-295); Potassium 3.7 mmol/L (3.5-5.1); Sodium 139 mmol/L (136-145); Thyroid Stimulating Hormone 1.80 uIU/mL (0.27-4.20); Total Protein 7.6 g/dL (6.6-8.7)
[2025-02-16 23:46] VITALS: BP 134/78; PULSE 80; O2SAT 96
[2025-02-17 00:08] LABS: Glucose Urine UA Negative (Normal); Nitrate Urine Negative (Negative); Specific Gravity, Urine 1.008 (1.005-1.030)
[2025-02-17 00:15] LABS: PCP Screen Urine Negative (Negative)
[2025-02-17 00:28] VITALS: PULSE 75; RESP 18; O2SAT 96
[2025-02-17 00:37] VITALS: BP 131/84; PULSE 80; RESP 16; O2SAT 97
[2025-02-17 09:45] LABS: Nucleated Red Blood Cells % 0 %
== END 2025-02-17 00:39 | disposition home or self-care (01) ==
PROVIDERS: Emergency Provider Emergency Medicine; PCP Nurse Practitioner
DX: R00.2 Palpitations (principal); R07.9 Chest pain, unspecified; F17.210 Nicotine dependence, cigarettes, uncomplicated; I10 Essential (primary) hypertension
CPT/HCPCS: 36415; 71045; 80053; 80306; 81001; 83735; 84443; 84484; 84703; 85007; 85025; 93005; 99285